=== PATIENT | female | born 1970 | race Caucasian/White ===

== ENCOUNTER 2018-03-09 08:03 | Day surgery (SDC) | payer OTHER, MEDICAID, SELFPAY ==
[2018-03-09] VITALS (8 sets, daily range): BP systolic 103–123; BP diastolic 67–83; PULSE 58–94; RESP 12–20; TEMP 36.1–36.9; O2SAT 95–99; BMI 27.9
--- NOTE | 2018-03-09 | PATH_ITS ---
[facility] Accession Number: [id number] . 01 Material submitted: . UTERUS AND BILATERAL FALLOPIAN TUBES . 02 Diagnosis: Uterus and Bilateral Fallopian Tubes, Hysterectomy and Bilateral Salpingectomy: 1. Focal complex endometrial hyperplasia with atypia. See comment. 2. Adenomyosis. 3. Two fallopian tubes with no evidence of neoplasm. 4. Benign leiomyoma. 5. No evidence of invasive carcinoma. MRV/03/16/2018 . 02 Comment: As part of routine design quality engineer, this case was also reviewed by Dr. Robledo and Dr. Koroma, who agree with the interpretation of complex endometrial hyperplasia with atypia. No invasive carcinoma is identified. All of the visualized endometrium from the morcellated specimen is submitted. . 02 Electronically signed: . Julia Wolf MD, Pathologist NPI- [id number] . 01 Gross description: . Received in formalin, labeled uterus + bilateral fallopian tubes, is a morcellated uterus (81 grams, 10.5 x 9.5 x 4.0 cm in aggregate) and two fimbriated fallopian tubes (tube #1: length-4.2 cm, diameter -0.6 cm; tube #2: length-4.0 cm, diameter-0.5 cm). The ovaries and cervix are absent. The specimen cannot be oriented and the endometrium and myometrium cannot be grossly measured. The parenchyma and serosa are quan and unremarkable. The fallopian tubes have dark maroon smooth shiny serosa and quan unremarkable lumens. Section code: (A1-A4) parenchyma; (A5) fallopian tube #1, traffic representative serial slices; (A6) fimbria #1, bivalved, entirely submitted; (A7) fallopian tube #2, traffic representative serial slices; (A8) fimbria #2, bivalved, entirely submitted. Additional sections of endometrium and myometrium are submitted in cassettes A9-A14. (ERYN:cmc10) (JL:cmc10 911) /MRV . 02 Pathologist provided ICD-10: N85.02 . 02 CPT . 077546 Performed at: 01 [facility] [address] [id number] MD Porter Shepherd MD Phone: [phone] Performed at: [address] [facility] [address] [place], [place] [id number] MD Joao Koroma MD Phone: [phone]
[2018-03-09] MEDS: LACTATED RINGERS 1,000 ML 42 ML IV ×2 (09:06→11:40)
--- NOTE | 2018-03-09 09:43 | PM.PREOP ---
Pre-operative Note Interval Note Pre-op Check: History & Physical Reviewed by Physician
[2018-03-09] MEDS: CEFAZOLIN 2 GM/100 ML FROZ.PIGGY IV (10:05)
--- NOTE | 2018-03-09 10:52 | SUR.OPER ---
Lithotomy on padded OR bed. Chappell Pad Positioner under torso. Head on foam headrest and gel donut, arms padded and tucked at sides. Legs secured in padded yellow fins stirrups.
[2018-03-09] MEDS: BUPIVACAINE 0.5% W/ EPI (PF) 30 ML VIAL INJ (11:18)
[2018-03-09] MEDS: ROPIVACAINE 0.2% PF 2 MG/ML 10ML AMP 20 ML INJ (11:36)
[2018-03-09] MEDS: OXYCODONE/ACETAMINOPHEN 5/325 TABLET 1 TAB PO (13:14)
--- NOTE | 2018-03-09 13:55 | SUR.PHASEII ---
Delay in discharge due to needing to void after which happened she is discharged. Reporting severe pain but also with 0 for FLACC scale. Medicated however after recing a snack.
--- NOTE | 2018-03-09 18:34 | P.OP_ITS ---
Operative Date/Time/Diagnoses Date of procedure: 03/09/18 Time of procedure: 11:30 Pre-op diagnosis: Menorrhagia Post-op diagnosis: same Procedure: Procedures Operation Date: 03/09/18 09:15 Actual Procedures Side Surgeon p Laparoscopic Supracervical Hysterectomy w/Bilat Salpingectomies Evelyn Kennedy MD Laparoscopic supracervical hysterectomy and bilateral salpingectomy Indications: Menorrhagia Surgeon: Evelyn Kennedy Steam Shovel Oiler: Jay Smith Anesthesia Type: General Operative Notes Findings: 8 week size anteverted uterus Tubes status post ligation bilaterally Normal appendix Normal gallbladder and liver Normal ovaries Closure Type: primary Specimen(s): left tube, right tube and uterus Applied: catheter (Removed at the end of the case) Estimated blood loss (mL): 150 Procedure in detail: The patient was taken to the operating room where she was placed in the dorsal supine position. After adequate general endotracheal anesthesia was achieved, she was placed in the dorsal lithotomy position, and prepped and draped in the usual sterile fashion. A timeout was performed. A bivalve speculum was placed into the vagina and the anterior lip of the cervix grasped with a single-tooth tenaculum. The cervical os was sequentially dilated until the ZUMI uterine manipulator could pass easily into the endometrial cavity. The single-tooth tenaculum was removed from the anterior lip of the cervix, and the bivalve speculum was removed from the vagina. Attention was then turned to the abdomen where 6 mL of half percent Marcaine with epinephrine were injected in the umbilical fold. A 5 mm incision was made. The Verhees needle was placed into the peritoneal cavity, and its placement confirmed by aspiration and drop test. The Verhees needle was removed. A 5 mm trocar was placed without difficulty. 2 other incisions were made midway between the pubic symphysis and umbilicus after 5 mL of half percent Marcaine with epinephrine were injected. These were 5 mm incisions. Two 5 mm trochars were placed under direct visualization. The right tube was grasped with an atraumatic grasper. Using the plasma kinetic with settings of 40 W the mesosalpinx was cauterized and cut all the way down to the cornua of the uterus. The cornua of the uterus was then grasped with an atraumatic grasper. The utero-ovarian ligaments were cauterized and cut. The round ligament and broad ligament was cauterized and cut with plasma kinetic. Hemostasis was achieved. The bladder flap was created using the plasma kinetic with cautery and cut skilled nursing across. The uterine arteries on the right side were extensively cauterized with plasma kinetic. All of this was repeated on the left side. The remainder of the bladder flap was created using the plasma kinetic, and the bladder taken down off the lower uterine segment and cervix. Using the Linaloop, the cervix was amputated from the uterus 2 cm above the uterosacral ligaments, after the ZUMI uterine manipulator was removed from the uterus. There was a small amount of bleeding noted from the left edge of the cervix, and this was cauterized for hemostasis. A sponge stick was placed into the vagina. 6 mL of half percent Marcaine with epinephrine were injected above the pubic symphysis. A 12 mm trocar was placed. An Endobag was placed through the suprapubic trocar and the uterus placed into the Endobag. The trocar was removed. The Vince was placed into the endobag. The uterus was hand morcellated in approximately 15 pieces. The Endobag was removed from the peritoneal cavity. The pelvis was copiously irrigated with warm normal saline. No bleeding was noted. 20 cc of 0.2% ropivacaine was placed over the pedicles and cervix. The instruments were removed from the abdomen. The CO2 was allowed to escape. The suprapubic incision was closed on the fascia with 0 Vicryl. All of the incisions were closed with 4-0 undyed Vicryl in a subcuticular fashion. Steri-Strips, 2 x 2 was, and op sites were placed over the incisions. The moistened sponge stick was removed from the vagina. Sponge , lap, and instrument counts were correct x-2. The patient tolerated the procedure well, was taken to PACU in stable condition. Complications: none Post-operative Condition: stable Disposition: PACU Plan for aftercare: Home after recovery
== END 2018-03-09 13:45 | disposition home or self-care (01) ==
PROVIDERS: Family Provider Family Medicine; PCP Family Medicine; Visit Provider Obstetrics & Gynecology
PROC: 0UT94ZL Resection of Uterus, Supracervical, Percutaneous Endoscopic Approach (ICD-10-PCS; CPT 58542; principal; 2018-03-09 09:15)
DX: N85.02 Endometrial intraepithelial neoplasia [EIN] (principal); F17.210 Nicotine dependence, cigarettes, uncomplicated; J45.909 Unspecified asthma, uncomplicated
CPT/HCPCS: 58542; 88307; J0330; J0690; J1100; J1170; J1885; J2405; J2704; J2795; J3010

== ENCOUNTER → 2018-09-03 16:25 | Outpatient (CLI) | payer OTHER, MEDICAID, SELFPAY ==
--- NOTE | 2018-09-04 16:03 | PM.PFT.1 ---
Pulmonary Function Test Referral & Results Date Patient Seen: 09/03/18 Requesting provider: Jacob Hampton Indication: Wheezing Results: The spirometry demonstrates an FVC of 2.98 L which is 78% of predicted. The FEV1 was measured at 2.14 L which is 71% of predicted. The FEV1/FVC ratio was 72 which is 89% of predicted. Following the administration of bronchodilator there was an 80% improvement in FEV1 and 85% improvement in FEF 25-75%. Lung volumes show an SVC of 3.24 L which is 93% of predicted. The diffusing capacity was measured at 23.40 which is 86% of predicted. Interpretation: There is evidence of moderate obstructive lung disease based on reduction FEV1 evidence of significant benefit following bronchodilator based on 18% improvement in FEV1 as well as 85% improvement in FEF 25-75% Lung volumes appear normal as does diffusing capacity This consistent with a diagnosis of asthma
== END ==
PROVIDERS: Family Provider Family Medicine; PCP Family Medicine; Visit Provider Internal Medicine
DX: R06.2 Wheezing (principal)
CPT/HCPCS: 94060; 94726; 94729

== ENCOUNTER → 2019-03-05 08:04 | Outpatient (CLI) | payer OTHER, MEDICAID, SELFPAY ==
--- NOTE | 2019-03-05 | DI.MRI.S_ITS ---
PROCEDURE: MR BRAIN (IAC) WWO CON INDICATIONS: Sensorineural hearing loss, bilateral TECHNIQUE: Noncontrast sagittal T1 spin echo, axial FLAIR, axial gradient echo, axial diffusion and ADC through the brain. Axial thin-slice 3D CISS, coronal TruFISP, axial T1 spin echo with fat saturation through the internal auditory canals. After the administration of contrast, thin slice axial and coronal T1 spin echo with fat saturation through the internal auditory canals, and axial T1 spin echo with fat saturation through the brain. COMPARISON: [facility], MR, BRAIN WITHOUT CONTRAST, 06/07/2015, 13:01. [facility], MR, BRAIN (IAC) W&WO CONTRAST, 06/21/2015, 9:55. FINDINGS: Image quality: Excellent. Cerebellopontine angles: No cerebellopontine angle masses. Inner ear structures appear normally formed. No suspicious enhancement in the internal auditory canal or along the course of the 7th cranial nerve. CSF spaces: Ventricles are normal in size and shape. No extra-axial fluid collections. Basal cisterns are patent. Brain: No intracranial bleeds or mass effects. Villegas-white matter interface is intact. No abnormal intracranial enhancement. Diffusion weighted images demonstrate no acute ischemic insults. Brainstem appears normal. Normal intravascular flow voids are present. Skull and face: Calvarial marrow signal is normal. Orbits appear normal. Sinuses: Sinuses and mastoids are clear. IMPRESSION: No significant abnormality is seen. Specifically, no masses or abnormal enhancement are seen within the cerebellopontine angle cisterns or within the internal auditory canals. Dictated by: Garrick Hoffmann M.D. on 03/05/2019 at 8:43 Approved by: Garrick Hoffmann M.D. on 03/05/2019 at 8:45
== END ==
PROVIDERS: Family Provider Family Medicine; PCP Family Medicine; Visit Provider Otolaryngology
DX: H90.3 Sensorineural hearing loss, bilateral (principal)
CPT/HCPCS: 70553

== ENCOUNTER → 2020-01-21 08:06 | Outpatient (CLI) | payer OTHER, MEDICAID, SELFPAY ==
--- NOTE | 2020-01-21 08:07 | DI.US.S_ITS ---
PROCEDURE: US PELVIC COMPLETE INDICATIONS: PAIN TECHNIQUE: Real-time scanning was performed of the pelvic organs, with image documentation. Additional endovaginal scanning was necessary due to incomplete visualization of the adnexal and endometrial structures by transabdominal scanning. COMPARISON: [facility], [place], PELVIC COMPLETE, 11/10/2017, 16:41. [facility], , PELVIC COMPLETE, 10/10/2017, 12:31. FINDINGS: Transabdominal scanning: Limited scanning through the kidneys shows no hydronephrosis. No pathologic free abdominal or pelvic fluid. Endovaginal scanning: Uterus: Uterus surgically absent. Ovaries: Not seen bilaterally. No cystic or solid mass is seen at either adnexa. IMPRESSION: Prior hysterectomy. Nonvisualization of the ovaries bilaterally, but the adnexal regions show no underlying cystic or solid mass. Dictated by: Vladimir Kelley M.D. on 01/21/2020 at 12:07 Approved by: Vladimir Kelley M.D. on 01/21/2020 at 12:09
== END ==
PROVIDERS: Family Provider Family Medicine; PCP Family Medicine; Referring Provider Obstetrics & Gynecology; Visit Provider Obstetrics & Gynecology
DX: R10.2 Pelvic and perineal pain (principal); G89.29 Other chronic pain; Z90.710 Acquired absence of both cervix and uterus
CPT/HCPCS: 76830; 76856

== ENCOUNTER → 2020-02-24 11:16 | Outpatient (CLI) | payer OTHER, MEDICAID, SELFPAY | PROVIDERS: Family Provider Family Medicine; PCP Family Medicine; Referring Provider Family Medicine; Visit Provider Family Medicine | DX: M47.22 Other spondylosis with radiculopathy, cervical region (principal) | CPT/HCPCS: 95886; 95887; 95913 ==

== ENCOUNTER 2020-06-05 08:30 | Outpatient (RCR) | payer OTHER, MEDICAID, SELFPAY ==
--- NOTE | 2019-06-28 16:30 | ST.OPIE ---
Visit Care Team Role Provider Type Jacob Hampton MD Family Provider Non-Staff Primary Care Provider Specialty: Family Practice Address: [address] , [address], [place], [address] Email: Tj Torres Attending Provider Non-Staff Specialty: Ear, Nose, Throat Address: [address] [place] [address], [address] Email: Speech-Language Pathology Initial Evaluation DIRECTOR BIOLOGY Voice Resonance Evaluation Start: 06/28/19 14:33 Freq: Status: Active Protocol: Document 06/28/19 14:34 JALEESA (Rec: 06/28/19 15:45 JALEESA [id number]) Voice and Resonance Assessment Session Time Visit Start Time 14:30 Visit Stop Time 15:30 Total Visit Minutes 60 Visit Information Visit Number Initial Evaluation Plan of Care Dates 06/28/19 - 09/28/19 Insurance Information [employer] (Pre-auth required after 6 visits) Next Note Type Next Note Type Treatment Note Referral Referring Physician Dr. Torres Reason for Referral Left vocal fold polypoid Setting Setting Outpatient Care Patient History General Information 49-yr-old female with left side polypoid and resolving bleed, per videostroboscopy report. Additional findings include: Smooth right VF edge with normal mucosal wave and VF movement; incomplete glottic closure. Left VF with normal movement, slightly decreased mucosal wave and mild hypertrophy at posterior commisure. The pt reported first experiencing pain with voice and ears after contracted Norovirus in November 2018 lasting ~5 days and including significant violent vomiting. She was seen by Dr. Munroe, ENT, who referred her to Dr. Torres for stroboscopic evaluation of VFs (findings listed above). The pt also has a history of hearing loss. She wears hearing aids, first obtained in fall 2017. 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 She has a history of intermittent smoking of up to 4 cigarettes/day as well as marijuana. Since seeing ENTs, she has mostly stopped smoking and is following a Vocal Hygiene regimen per their recommendations. She denies GERD/LPR and states she was cleared of GERD via endoscopy in Jul 2018. She follows an anti-GERD diet to control. Finally, the pt has a history of mild allergies (house/food molds, 1 tree, and 1 weed), asthma, and COPD. The latter 2 were diagnosed in May 2018. Will get botox injection 08/12/19 for migraines. Hearing Hearing Level Hearing Aids Auditory History Has worn hearing aids for 1 year [place] Lang[place] Language(s) Spoken in the Home Vietnamese Occupational Status Occupation Status Not working Previous Therapy Previous Speech-Language Therapy No Subjective Subjective The pt arrived on time and provided case history supplemental to medical records. - Laryngeal Performance Voice Handicap Index Function Subtotal 11 Mild-Moderate Physical Subtotal 28 Severe Emotional Subtotal 18 Moderate-Severe Total Score 57 Severity Moderate (31-60) VHI Comments (one item in emotional scale not answered, may increase score) CAPE-V Overall Severity 66% Moderate-Severe Roughness 60% Moderate-Severe Breathiness WNL Strain 51% Moderate Pitch 16% (mildly low) Normal Resonance? Yes Additional Features Glottal Wolff Breath Support Breath Support Conversation Comment Breath support for sustaining speech WNL Speaks on Room Air Yes Voice Pitch Range Norms: Women (100-300 Hz) Men (70-250 Hz) Fundamental Frequency Norms: Women (Mean: 225 Hz; Range: 155-334 Hz) Men ( Mean: 128 Hz; Range: 85-196 Hz) Voice Pitch Mildly Low Fundamental Frequency ~150 Hz Paradoxical Vocal Fold Movement No Indications Resonance Other Observations Aggressive Personality Findings Findings Moderate-Severe Impairment Voice/Resonance Assessment Assessment Behavioral and perceptual assessments completed. Aerodynamic and acoustic testing to be completed at next session. Pt's vocal quality is perceived to be moderate-severely impaired and characterized by moderate strain with intermittent roughness, frequently attributable to glottal wolff. Pt's fundamental frequency is mildly below normal. The pt reports frequent vocal abuse ( coughing/throat clearing, imitating noises, talking loudly, grunting, excessive talking, and yelling) and vocal misuse (talking when stressed and tired, using character voices and talking in presence of cold/upper respiratory infection), which likely contribute significantly to vocal impairments. Prognosis Rehabilitation Potential Good - Recommendations Treatment Recommended Yes Treatment Frequency/Duration 1x/wk for 8 wks Placement Recommendation Home Therapy Recommendations Aerodynamic and acoustic evaluation of voice; Education RE vocal hygiene and modification of abusive behaviors; Reduction/Elimination of glottal wolff; Training in breath support for voice and exercises to improve vocal quality. Short Term Goals 1. The pt will participate in further assessment of vocal quality/function to guide POC. 2. The pt will eliminate 3 areas of vocal abuse/misuse of her choosing in 80% of opportunities, as measured by pt report and clinician judgment, to improve VF health , function, and quality of voice. 3. The pt will eliminate glottal wolff in 50% of opportunities to improve vocal quality and minimize laryngeal strain. 4. The pt will perform diaphragmatic breathing in structured tasks with 80% accuracy to improve breath support for voice and reduce laryngeal strain. 5. The pt will perform simple forward focus exercises to reduce laryngeal strain, reduce VF abuse/misuse, and improve vocal quality. [place]ummer Goals 1. The pt will exhibit vocal hygiene WFL, as measured by Vocal Hygiene Patient Questionnaire and clinician judgment, to reduce vocal abuse/misuse and improve VF health and vocal quality. 2. The pt will eliminate glottal wolff in 75% of opportunities to improve vocal quality and minimize laryngeal strain. 3. The pt will perform diaphragmatic breathing independently during vocal exercises and conversation in 80% of opportunities to improve vocal quality and breath support for voice and speech. 4. Using forward focus techniques, the pt will produce vocal quality in conversation to WFL as measured by CAPE-V. 5. The pt will report <Mild vocal impairment as measured by VHI. Patient/Caregiver Education Patient/Family Education Described results of evaluation,Patient Understanding,Patient Needs More Info Vocally Abusive Behavior Behavior Rating Alcohol Consumption Occasionally Arguing (peers/siblings/other) Occasionally Athletic Activity Yelling Occasionally Mouth Breathing Infrequently Caffeine Use Frequently Calling from Distance Infrequently Coughing/Sneezing Loudly Always Crying Infrequently Use of Dairy Products Infrequently Environmental Irritant Exposure Always Use of Inhalants Occasionally Laughing Hard/Abusively Always Singing Abusively Frequently Participation In Plays Never Smoking Infrequently Excessive Talking Occasionally Making Animal /Toy Noises Always Yelling/Screaming Frequently
--- NOTE | 2019-07-05 17:27 | ST.OPTN ---
Visit Care Team Role Provider Type Jacob Hampton MD Family Provider Non-Staff Primary Care Provider Address: [address] , [address], [place], [address] Tj Torres Attending Provider Non-Staff Address: [address], [place], [address] BIOMED TECH Treatment Note BIOMED TECH Treatment Note Start: 06/28/19 14:33 Freq: Status: Active Protocol: Document 07/05/19 17:09 JALEESA (Rec: 07/05/19 17:27 JALEESA [id number]) Speech Pathology Treatment Note Session Time Visit Start Time 14:30 Visit Stop Time 15:15 Total Visit Minutes 45 Visit Information Visit Number 1 Setting Treatment Setting Outpatient Care Visit Type Note Type Treatment Note Next Note Type Next Note Type Treatment Note Subjective Observations/Patient Presentation The pt arrived on time. She reported having researched voice therapy and glottal holman at home and exhibited greater insight to deficits and targets of treatment in conversation throughout the session. Chief Complaint(s) Voice Objective Treatment Activities Completed voice assessment: MPT = 16.35 sec with coaching. Measured vocal stability with average across 3 trials: Fundamental Frequency 151.3 Hz , mildly lower than average; Jitter 0.20%, WNL; and Shimmer 2.28% WNL. The pt reported feeling variation in pitch and loudness and stated that she often has loud outbursts of voice without warning. This was not witnessed in today's session. Pitch Range: 122-443 with clear vocal quality, WNL. The pt was able to go much lower in pitch (as low as 80 Hz) but with significant glottal holman. She continued to exhibit frequent episodes of glottal holman in spontaneous conversation, ~65% of voicing, as perceived by the BIOMED TECH. Initiated training of glottal holman avoidance. The pt was immediately receptive. Provided play-back of her reading of [employer] [place] , which was recorded at start of session. She correctly identified episodes of glottal holman (total = 12) as well as began self-correcting her spontaneous speech. She re- read [place], improving vocal quality to only 4 episodes of glottal holman (WFL). Assessment Patient Response to Treatment Excellent Rehab Potential Good Impairments Identified Vocal Quality,Vocal Hygiene Progress Towards Goals Excellent Progress Assessment of Overall Progress Improving Assessment of Improvement In aerodynamic and acoustical testing, the pt demonstrated vocal stability WNL, although she reported the sensation of instability and lack of control particularly in loudness. Fundamental frequency is mildly below normal for a female, and phonation time is mildly below normal, though with max verbal cues she was able to achieve basal score. The pt made excellent progress today in perceiving and eliminating glottal holman in her voice. She acknowledged the frequency with which she exhibits glottal holman and was responsive to feedback to increase awareness and eliminate when possible. She described strategy to reduce glottal holman as speaking with a cheerful voice and asked excellent questions, including how to avoid glottal holman without sounding inappropriately cheerful in conversations that are serious in nature. She was able to produce clear speech with appropriate tone and prosody when given sentences appropriate to such contexts. Reviewed with Patient Goals,Progress Being Made,Home Exercise Program Patient/Caregiver Understanding Excellent Plan Treatment Emphasis Next Session Breath support for voice and speech. Therapeutic Contents Client Education,Home Exercise Program,Voice Training Provided Patient/Caregiver Instruction Home Exercise Program,Plan of Care,Questions/Concerns Therapy Recommendations Continue with Current Program
--- NOTE | 2019-07-14 18:38 | ST.OPTN ---
Visit Care Team Role Provider Type Jacob Hampton MD Family Provider Non-Staff Primary Care Provider Address: [address], [address], [place], [address] Tj Torres Attending Provider Non-Staff Address: [address], [place], [address] PAROLE OFFICER Treatment Note PAROLE OFFICER Treatment Note Start: 06/28/19 14:33 Freq: Status: Active Protocol: Document 07/14/19 18:27 JALEESA (Rec: 07/14/19 18:38 JALEESA [email or web address]) Speech Pathology Treatment Note Session Time Visit Start Time 13:30 Visit Stop Time 14:15 Total Visit Minutes 45 Visit Information Visit Number 2 Setting Treatment Setting Outpatient Care Visit Type Note Type Treatment Note Next Note Type Next Note Type Treatment Note General Information General Information 49-yr-old female with left side polypoid and resolving bleed, per videostroboscopy report. Additional findings include: Smooth right VF edge with normal mucosal wave and VF movement; incomplete glottic closure. Left VF with normal movement, slightly decreased mucosal wave and mild hypertrophy at posterior commisure. The pt reported first experiencing pain with voice and ears after contracted Norovirus in November 2018 lasting ~5 days and including significant violent vomiting. She was seen by Dr. Munroe, ENT, who referred her to Dr. Torres for stroboscopic evaluation of VFs (findings listed above). The pt also has a history of hearing loss. She wears hearing aids, first obtained in fall 2017. 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 She has a history of intermittent smoking of up to 4 cigarettes/day as well as marijuana. Since seeing ENTs, she has mostly stopped smoking and is following a Vocal Hygiene regimen per their recommendations. She denies GERD/LPR and states she was cleared of GERD via endoscopy in Jul 2018. She follows an anti-GERD diet to control. Finally, the pt has a history of mild allergies (house/food molds, 1 tree, and 1 weed), asthma, and COPD. The latter 2 were diagnosed in May 2018. Will get botox injection 08/12 for migraine. Subjective Observations/Patient Presentation The pt arrived on time. She informed that she has started taking anger management classes as an attempt to find alternative ways to express herself that will be beneficial in protecting her voice, as well in maintaining relationships and personal quality of life. She also reported good understanding and increased awareness of minimizing glottal holman. Chief Complaint(s) Voice Objective Short Term Goals 1. The pt will participate in further assessment of vocal quality/function to guide POC. 2. The pt will eliminate 3 areas of vocal abuse/misuse of her choosing in 80% of opportunities, as measured by pt report and clinician judgment, to improve VF health , function, and quality of voice. 3. The pt will eliminate glottal holman in 50% of opportunities to improve vocal quality and minimize laryngeal strain. 4. The pt will perform diaphragmatic breathing in structured tasks with 80% accuracy to improve breath support for voice and reduce laryngeal strain. 5. The pt will perform simple forward focus exercises to reduce laryngeal strain, reduce VF abuse/misuse, and improve vocal quality. Treatment Activities Continued education of vocal hygiene including alternative behaviors to minimize vocal misuse and abuse. The pt identified situations in which she misuses her voice and was able to offer appropriate alternatives (e.g., breathing out instead of grunting during exercise or when experiencing pain). The pt exhibited minimal glottal holman in spontaneous conversation throughout the session. Skilled feedback and encouragement was provided, including comparisons of voice recordings taken today at at initial evaluation (Jun 28). Upon hearing the difference in her voice, the pt stated, That sounds like two different people! and responded emotionally, verbalizing her disbelief and appreciation at the improved quality of voice she is producing today. She reported being very encouraged . Initiated education of sub- systems of voice and training of breath support as foundational to forward focus resonance, which will be trained at next session to reduce laryngeal tension during phonation and speech. Assessment Patient Response to Treatment Excellent Rehab Potential Good Impairments Identified Vocal Quality,Vocal Hygiene Progress Towards Goals Excellent Progress Assessment of Overall Progress Improving Assessment of Improvement Significant improvement in vocal quality was observed today via the pt's near elimination of vocal holman. The pt was highly encouraged and appreciative. She was participatory and intuitive during discussions of alternative behaviors to reduce vocal misuse/abuse and has taken significant steps toward this by attending anger management courses. She was receptive to initial education RE breath support for speech and voice and use of forward focus resonance to reduce laryngeal tension. This will be continued at next session. Reviewed with Patient Goals,Progress Being Made,Home Exercise Program Patient/Caregiver Understanding Excellent Plan Treatment Emphasis Next Session Breath support for voice and speech; forward focus resonance. Therapeutic Contents Client Education,Home Exercise Program,Voice Training Provided Patient/Caregiver Instruction Home Exercise Program,Plan of Care,Questions/Concerns Therapy Recommendations Continue with Current Program
--- NOTE | 2019-07-28 17:56 | ST.OPTN ---
Visit Care Team Role Provider Type Jacob Hampton MD Family Provider Non-Staff Primary Care Provider Address: [address], [address], [place], [address] Tj Torres Attending Provider Non-Staff Address: [address], [place], [address] PROJECT SAFETY MANAGER Treatment Note PROJECT SAFETY MANAGER Treatment Note Start: 06/28/19 14:33 Freq: Status: Active Protocol: Document 07/27/19 17:43 JALEESA (Rec: 07/28/19 17:46 JALEESA [id number]) Speech Pathology Treatment Note Session Time Visit Start Time 14:30 Visit Stop Time 15:20 Total Visit Minutes 50 Visit Information Visit Number 3 Setting Treatment Setting Outpatient Care Visit Type Note Type Treatment Note Next Note Type Next Note Type Treatment Note General Information General Information 49-yr-old female with left side polypoid and resolving bleed, per videostroboscopy report. Additional findings include: Smooth right VF edge with normal mucosal wave and VF movement; incomplete glottic closure. Left VF with normal movement, slightly decreased mucosal wave and mild hypertrophy at posterior commisure. The pt reported first experiencing pain with voice and ears after contracted Norovirus in November 2018 lasting ~5 days and including significant violent vomiting. She was seen by Dr. Munroe, ENT, who referred her to Dr. Torres for stroboscopic evaluation of VFs (findings listed above). The pt also has a history of hearing loss. She wears hearing aids, first obtained in fall 2017. 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 She has a history of intermittent smoking of up to 4 cigarettes/day as well as marijuana. Since seeing ENTs, she has mostly stopped smoking and is following a Vocal Hygiene regimen per their recommendations. She denies GERD/LPR and states she was cleared of GERD via endoscopy in Jul 2018. She follows an anti-GERD diet to control. Finally, the pt has a history of mild allergies (house/food molds, 1 tree, and 1 weed), asthma, and COPD. The latter 2 were diagnosed in May 2018. Will get botox injection 08/12 for migraine. Subjective Observations/Patient Presentation The pt arrived on time. She reported increased use of glottal holman and vocal outbursts secondary to increased depression from this time of year and from PTSD experiences. She stated she has a difficulty time being upbeat at Hung time and she recognized that this was reflected in her voice. She said that she has modified her voice when feeling pain and when exercising, however, as discussed at last session. Chief Complaint(s) Voice Objective Short Term Goals 1. The pt will eliminate 3 areas of vocal abuse/misuse of her choosing in 80% of opportunities, as measured by pt report and clinician judgment, to improve VF health , function, and quality of voice. 2. The pt will eliminate glottal holman in 50% of opportunities to improve vocal quality and minimize laryngeal strain. 3. The pt will perform diaphragmatic breathing in structured tasks with 80% accuracy to improve breath support for voice and reduce laryngeal strain. 4. The pt will perform simple forward focus exercises to reduce laryngeal strain, reduce VF abuse/misuse, and improve vocal quality. Application Operations Engineer Goals 1. The pt will exhibit vocal hygiene WFL, as measured by Vocal Hygiene Patient Questionnaire and clinician judgment, to reduce vocal abuse/misuse and improve VF health and vocal quality. 2. The pt will eliminate glottal holman in 75% of opportunities to improve vocal quality and minimize laryngeal strain. 3. The pt will perform diaphragmatic breathing independently during vocal exercises and conversation in 80% of opportunities to improve vocal quality and breath support for voice and speech. 4. Using forward focus techniques, the pt will produce vocal quality in conversation to WFL as measured by CAPE-V. 5. The pt will report <Mild vocal impairment as measured by VHI. Treatment Activities Continued education of vocal hygiene including alternative behaviors to minimize vocal misuse and abuse. Pt verbalized understanding and reported behaviors she has modified since last visit, as well as strategies she can employ during this difficult time of year. Initiated training in forward focus resonance to reduce laryngeal tension during phonation and heal vocal pathology. The pt returned demonstration with productions of /m/ at various pitches and productions of m-initial CV syllables, sensing vibration at lips and bridge of nose. Vocal quality was intermittently strained and relaxed as the pt practiced the task. Given productions of the PROJECT SAFETY MANAGER's voice, the pt was able to discriminate between strained and relaxed voice and improved in her ability to discern the same in her own voice and produced increasingly relaxed voicing. Assessment Patient Response to Treatment Excellent Rehab Potential Good Impairments Identified Vocal Quality,Vocal Hygiene Progress Towards Goals Excellent Progress Assessment of Overall Progress Improving Assessment of Improvement The pt exhibited significant increase of glottal holman during today's session as compared to last session. The pt demonstrated awareness of this and occasionally modified voice to eliminate glottal holman . She was receptive to feedback RE managing her voice when she is feeling increased depression and strategies to reduce vocal outbursts that may be abusive to the voice. She was also responsive to initial training of forward focus resonance, able to discern between target and non -target productions from the PROJECT SAFETY MANAGER and herself. She was stimulable to the technique, which needs reinforcement. Reviewed with Patient Goals,Progress Being Made,Home Exercise Program Patient/Caregiver Understanding Excellent Plan Treatment Emphasis Next Session Breath support for voice and speech; forward focus resonance. Therapeutic Contents Client Education,Home Exercise Program,Voice Training Provided Patient/Caregiver Instruction Home Exercise Program,Plan of Care,Questions/Concerns Therapy Recommendations Continue with Current Program
--- NOTE | 2019-08-02 17:05 | ST.OPTN ---
Visit Care Team Role Provider Type Jacob Hampton MD Family Provider Non-Staff Primary Care Provider Address: [address], [place], [address] Tj Torres Attending Provider Non-Staff Address: [address], [place], [address] BOILER CLEANER Treatment Note BOILER CLEANER Treatment Note Start: 06/28/19 14:33 Freq: Status: Active Protocol: Document 08/02/19 15:25 JALEESA (Rec: 08/02/19 15:26 JALEESA [email or web address]) Speech Pathology Treatment Note Session Time Visit Start Time 14:30 Visit Stop Time 15:20 Total Visit Minutes 50 Visit Information Visit Number 3 Plan of Care Dates 06/28/19 - 09/28/19 Insurance Information [employer] (Pre-auth required after 6 visits) Setting Treatment Setting Outpatient Care Visit Type Note Type Treatment Note Next Note Type Next Note Type Treatment Note General Information General Information 49-yr-old female with left side polypoid and resolving bleed, per videostroboscopy report. Additional findings include: Smooth right VF edge with normal mucosal wave and VF movement; incomplete glottic closure. Left VF with normal movement, slightly decreased mucosal wave and mild hypertrophy at posterior commisure. The pt reported first experiencing pain with voice and ears after contracted Norovirus in November 2018 lasting ~5 days and including significant violent vomiting. She was seen by Dr. Munroe, ENT, who referred her to Dr. Torres for stroboscopic evaluation of VFs (findings listed above). The pt also has a history of hearing loss. She wears hearing aids, first obtained in fall 2017. 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 She has a history of intermittent smoking of up to 4 cigarettes/day as well as marijuana. Since seeing ENTs, she has mostly stopped smoking and is following a Vocal Hygiene regimen per their recommendations. She denies GERD/LPR and states she was cleared of GERD via endoscopy in Jul 2018. She follows an anti-GERD diet to control. Finally, the pt has a history of mild allergies (house/food molds, 1 tree, and 1 weed), asthma, and COPD. The latter 2 were diagnosed in May 2018. Will get botox injection 08/12 for migraine. Subjective Observations/Patient Presentation The pt arrived on time. She reported improving ability to monitor and control her voice and good compliance with vocal hygiene recommendations. The pt expressed concern that in doing exercises, she feels that she is losing her own, natural voice, particularly fundamental frequency. She feels in order to avoid glottal holman and back focused voicing, she is speaking at a pitch higher that is natural for her. She is concerned that this will take away from her personality. Chief Complaint(s) Voice Patient Knowledge/Awareness of BOILER CLEANER Role Excellent in Treatment Patient/Caregiver Compliance with Home Good Exercise Program Objective Short Term Goals 1. The pt will eliminate 3 areas of vocal abuse/misuse of her choosing in 80% of opportunities, as measured by pt report and clinician judgment, to improve VF health , function, and quality of voice. 2. The pt will eliminate glottal holman in 50% of opportunities to improve vocal quality and minimize laryngeal strain. 3. The pt will perform diaphragmatic breathing in structured tasks with 80% accuracy to improve breath support for voice and reduce laryngeal strain. 4. The pt will perform simple forward focus exercises to reduce laryngeal strain, reduce VF abuse/misuse, and improve vocal quality. Senior Care Goals 1. The pt will exhibit vocal hygiene WFL, as measured by Vocal Hygiene Patient Questionnaire and clinician judgment, to reduce vocal abuse/misuse and improve VF health and vocal quality. 2. The pt will eliminate glottal holman in 75% of opportunities to improve vocal quality and minimize laryngeal strain. 3. The pt will perform diaphragmatic breathing independently during vocal exercises and conversation in 80% of opportunities to improve vocal quality and breath support for voice and speech. 4. Using forward focus techniques, the pt will produce vocal quality in conversation to WFL as measured by CAPE-V. 5. The pt will report <Mild vocal impairment as measured by VHI. Treatment Activities Pt exhibited only occasional glottal holman throughout the session, typically at ends of sentences. She self-monitored and corrected independently. Continued training in forward focus resonance. Pt completed tasks using /m/ and m-initial CV syllables achieving target resonance in >90% of trials. In conversation, the pt produced speech at fundamental frequency range of 123-207 Hz , which is at or mildly below normal levels (155-334 Hz range; 225 Hz normal fundamental frequency). Trained pt in forward focus at her typical fundamental frequency by humming verbal intonations using 4 phrases she commonly uses in her functional conversations. The pt initially exhibited glottal stops where words would occur if she were speaking. Trained pt to perform intonation task with continuous phonation, which she was able to accomplish. In most trials, the pt was able to achieve target resonance. No episodes of glottal holman were present during this task. Assessment Patient Response to Treatment Excellent Rehab Potential Good Impairments Identified Vocal Quality,Vocal Hygiene Progress Towards Goals Excellent Progress Assessment of Overall Progress Improving Assessment of Improvement Significantly improved vocal quality with minimal presence of glottal holman was perceived in today's session as compared with last week. The pt appeared and resported being much happier, feeling less depressed this week, and that was reflected in her vocal quality. She performed forward focus resonance (ffr) tasks well using /m/ in isolation and in CV syllables. She was responsive to training in ffr tasks using conversational pitch and intonation and transitioned to speaking same phrases with good quality of voice. Will progress to phrases/sentences with /m/- heavy content to continue transitioning to ffr speech. Reviewed with Patient Goals,Progress Being Made,Home Exercise Program Patient/Caregiver Understanding Excellent Plan Treatment Emphasis Next Session M words, phrases, sentences Therapeutic Contents Client Education,Home Exercise Program,Voice Training Provided Patient/Caregiver Instruction Home Exercise Program,Plan of Care,Questions/Concerns Therapy Recommendations Continue with Current Program
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
--- NOTE | 2019-11-02 17:00 | ST.OPTN ---
Visit Care Team Role Provider Type Jacob Hampton MD Family Provider Non-Staff Primary Care Provider Address: [address] , [address], [place], [address] Tj Torres Attending Provider Non-Staff Address: [address], [place], [address] COIN MACHINE OPERATOR Treatment Note COIN MACHINE OPERATOR Treatment Note Start: 06/28/19 14:33 Freq: Status: Active Protocol: Document 11/02/19 16:51 JALEESA (Rec: 11/02/19 16:59 JALEESA [email or web address]) Speech Pathology Treatment Note Session Time Visit Start Time 13:30 Visit Stop Time 14:15 Total Visit Minutes 45 Visit Information Visit Number 2 Plan of Care Dates 10/26/19 - 12/26/19 Insurance Information [employer] (Pre-auth required after 6 visits) Setting Treatment Setting Outpatient Care Visit Type Note Type Treatment Note Next Note Type Next Note Type Treatment Note General Information General Information 49-yr-old female with left side polypoid and resolving bleed, per videostroboscopy report. Additional findings include: Smooth right VF edge with normal mucosal wave and VF movement; incomplete glottic closure. Left VF with normal movement, slightly decreased mucosal wave and mild hypertrophy at posterior commisure. The pt reported first experiencing pain with voice and ears after contracted Norovirus in November 2018 lasting ~5 days and including significant violent vomiting. She was seen by Dr. Munroe, ENT, who referred her to Dr. Torres for stroboscopic evaluation of VFs (findings listed above). The pt also has a history of hearing loss. She wears hearing aids, first obtained in fall 2017. 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 She has a history of intermittent smoking of up to 4 cigarettes/day as well as marijuana. Since seeing ENTs, she has mostly stopped smoking and is following a Vocal Hygiene regimen per their recommendations. She denies GERD/LPR and states she was cleared of GERD via endoscopy in Jul 2018. She follows an anti-GERD diet to control. Finally, the pt has a history of mild allergies (house/food molds, 1 tree, and 1 weed), asthma, and COPD. The latter 2 were diagnosed in May 2018. Will get botox injection 08/12 for migraine. Subjective Observations/Patient Presentation Pt arrived on time. Requested assistance in finding a psychotherapist. Informed that in 2018 she had a psychological evaluation with findings of moderate dysthymia , somatization disorder, personalisty disorder with histronic freatuyres, and R/O canibis use disorder NOS. She provided name of Dr. Janes Wong as provider who evaluated her. Will attempt to obtain evaluation report. Pt completed Information Release form. Waiting for MD orders for cognitive evaluation and tx. After session, pt contacted PCP who reported not receiving request. Request was faxed again. Chief Complaint(s) Cognitive,Voice Additional Areas of Concern Auditory memory, word recall, expressive language Rehab Expectation/Goals: Patient Goals Stabilize voice; Improve cognitive & expressive communication skills Patient Knowledge/Awareness of COIN MACHINE OPERATOR Role Excellent in Treatment Patient/Caregiver Compliance with Home Excellent Exercise Program Objective Short Term Goals All previous goals met. New goals: 1. The pt will participate in evaluation of cognitive communication skills to identify areas of strength and impairment and to guide POC. Goals to be determined pending results. 2. The pt will employ strategies to reduce laryngeal strain in structured reading/ speaking tasks of moderate length in 80% of opportunities to maintain good vocal quality and minimize vocal abuse. 3. The pt will perform breathing and sustained phonation exercises with 80% accuracy to improve breath support for voice and speech. 4. Given emotionally laden reading passages and/or conversation topics, the pt will exhibit appropriate emotions via words and suprasegmental features while maintaining good vocal quality across duration of 3-6 minutes of speech to improve vocal control and reduce abusive vocal behaviors. Crystal Slicer Goals All previous goals met. New goals: 1. Given lengthy reading passages and in spontaneous speech, the pt will exhibit adequate breath support to support optimal vocal quality and intelligibility in 80% of opportunities. 2. Given emotionally laden topics/scenarios, the pt will maintain optimal vocal quality in 80% of opportunities to reduce/eliminate vocal abuse. 3. The pt will feel confident and comfortable with her vocal quality as related to her personality, as measured by pt and VHI reports. Treatment Activities Education provided to pt with recommendation for working with therapist trained in Cognitive Behavioral Therapy to target management of emotional triggers that result in vocal abuse. Pt in agreement. Provided a list of local providers and their contact information. Pt appreciative. At start of session, pt was observed with high frequency of vocal holman. She minimized this over course of sessio with mod verbal cues fading to independent monitoring and correction. Assessment Patient Response to Treatment Excellent Rehab Potential Good Impairments Identified Vocal Quality,Vocal Hygiene Progress Towards Goals Excellent Progress Assessment of Overall Progress Improving Assessment of Improvement Cassandra continues to be very motivated to improve vocal quality as well as overall health and open to working with mental health professional to establish strategies to avoid emotional triggers that result in vocal abuse. She exhibited increased use of vocal holman when discussing frustration and was responsive to verbal prompts, which resulted in independent monitoring and near absence of glottal holman by end of session. Reviewed with Patient Goals,Progress Being Made,Home Exercise Program Patient/Caregiver Understanding Excellent Plan Amount of Therapy Recommended 3-4 Months Frequency of Treatment Once a Week Length of Session 45 Minutes Therapeutic Contents Client Education,Cognitive- Linguistic Training,Expressive Language Training,Home Exercise Program,Voice Training Provided Patient/Caregiver Instruction Home Exercise Program,Plan of Care,Questions/Concerns Comment Skilled intervention targeting voice and cognitive communication skills
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
== END 2020-06-09 15:18 ==
LOC: SP 08:30
PROVIDERS: Family Provider Family Medicine; PCP Family Medicine; Visit Provider Specialist
DX: J38.1 Polyp of vocal cord and larynx (principal)
CPT/HCPCS: 92507; 92523; 92524; 96125

== ENCOUNTER → 2020-07-11 13:15 | Outpatient (CLI) | payer OTHER, MEDICAID, SELFPAY ==
--- NOTE | 2020-07-11 13:16 | DI.RAD.S_ITS ---
PROCEDURE: XR FOOT LT MIN 3V INDICATIONS: foot pain TECHNIQUE: 3 views of the foot were acquired. COMPARISON: [facility], CR, XR FOOT RT MIN 3V, 07/11/2020, 12:13. 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 This is slightly less prominent than that on the right.. No suspicious bony lesions. Soft tissues: No tibiotalar joint effusion. Achilles tendon appears normal. IMPRESSION: Podiatry related findings as discussed, no acute trauma found. Dictated by: Vladimir Kelley M.D. on 07/11/2020 at 14:05 Approved by: Vladimir Kelley M.D. on 07/11/2020 at 14:06
--- NOTE | 2020-07-11 13:16 | DI.RAD.S_ITS ---
PROCEDURE: XR FOOT RT MIN 3V INDICATIONS: foot pain TECHNIQUE: 3 views of the foot were acquired. COMPARISON: None. FINDINGS: Bones: No fractures or dislocations but note is made of a moderate degree of 1st MTP joint osteoarthritis with bunion formation at the medial 1st metatarsal head. No suspicious bony lesions. Soft tissues: No tibiotalar joint effusion. Achilles tendon appears normal. IMPRESSION: No trauma found. First MTP joint osteoarthritic change, with medial bunion formation at the 1st metatarsal head. Dictated by: Vladimir Kelley M.D. on 07/11/2020 at 14:04 Approved by: Vladimir Kelley M.D. on 07/11/2020 at 14:05
== END ==
PROVIDERS: Family Provider Family Medicine; PCP Family Medicine; Referring Provider Physical Medicine & Rehabilitation; Visit Provider Physical Medicine & Rehabilitation
DX: M79.672 Pain in left foot (principal); M79.671 Pain in right foot
CPT/HCPCS: 73630

== ENCOUNTER → 2021-02-09 09:28 | Outpatient (CLI) | payer OTHER, MEDICAID, SELFPAY ==
--- NOTE | 2021-02-09 09:29 | DI.RAD.S_ITS ---
PROCEDURE: XR THORACIC SPINE 3V INDICATIONS: RIB PAIN TECHNIQUE: 3 views of the thoracic spine were acquired. COMPARISON: [facility], , THORACIC SPINE 2 VIEWS, 10/01/2016, 14:15. FINDINGS: Bones: No fractures or dislocations. No suspicious bony lesions. 12 pairs of ribs are noted, and appear intact where visualized. Mild disc space narrowing and small anterior osteophytes noted in the midthoracic spine. Moderate disc space narrowing and anterior osteophytes noted in the lower cervical spine as well. Soft tissues: No paravertebral stripe thickening. IMPRESSION: Stable [id number] midthoracic degenerative disc disease without fracture or malalignment. Dictated by: Doyle Adams M.D. on 02/09/2021 at 12:04 Approved by: Doyle Adams M.D. on 02/09/2021 at 12:07
--- NOTE | 2021-02-09 09:29 | DI.RAD.S_ITS ---
PROCEDURE: XR LUMBAR SPINE MIN 4V INDICATIONS: low back pain TECHNIQUE: 5 views of the lumbar spine were acquired, including bilateral oblique views. COMPARISON: [facility], , L-SPINE WITHOUT CONTRAST, 10/10/2015, 14:02. FINDINGS: Bones: Disc space narrowing and hypertrophic facet joints in the lower lumbar spine is associated with 1.2 cm anterior subluxation of L4 over L5. Soft tissues: Overlying bowel gas pattern is normal. No suspicious soft tissue calcifications. Oblique images: No pars defects. IMPRESSION: Degenerative grade 2 L4-5 anterior spondylolisthesis has increased from the prior Dictated by: Doyle Adams M.D. on 02/09/2021 at 12:07 Approved by: Doyle Adams M.D. on 02/09/2021 at 12:10
== END ==
PROVIDERS: PCP Family Medicine; Referring Provider Physical Medicine & Rehabilitation; Visit Provider Physical Medicine & Rehabilitation
DX: M51.04 Intervertebral disc disorders with myelopathy, thoracic region (principal); M51.34 Other intervertebral disc degeneration, thoracic region; M43.16 Spondylolisthesis, lumbar region; M47.817 Spondylosis without myelopathy or radiculopathy, lumbosacral region
CPT/HCPCS: 72072; 72110

== ENCOUNTER 2021-02-16 08:15 | Outpatient (RCR) | payer OTHER, MEDICAID, SELFPAY ==
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
--- NOTE | 2020-10-16 15:33 | PT.OPPOC ---
Physical, Occupational & Speech Therapy At [facility] Current Diagnoses Hallux valgus (acquired), right foot (10/16/20) Hallux valgus (acquired), left foot (10/16/20) Other acquired deformities of right foot (10/16/20) Metatarsalgia, right foot (10/16/20) Visit Care Team Role Provider Type Jacob Hampton MD Primary Care Provider Non-Staff Specialty: [facility] Address: [address] [place] [address], [address], [place], [address] Email: Choco Kaur DPM Attending Provider Non-Staff Referring Provider Specialty: Podiatry Address: [address] [place] [address], [phone] Email: Plan Of Care PT-OP-T Assessment and Plan Start: 10/16/20 08:12 Freq: Status: Active Protocol: Document 10/16/20 08:15 AMB (Rec: 10/16/20 14:16 AMB [email or web address]) Physical Therapy Assessment Rehab Potential Rehabilitation Potential Good Evaluation Complexity Number of Personal Factors/Comorbidities 3 or More Number of Body Systems Impaired 4 or More Clinical Presentation at Evaluation Evolving Impairments Impairments Activity Tolerance,Functional Mobility,Pain,Strength Goals Four Impairment Range of motion Short Term Goal (STG) Cassandra will improve her ankle dorsiflexion to 10 degrees bilaterally. STG Duration 4 weeks Three Impairment Strength Short Term Goal (STG) Cassandra will perform 5 double leg heel lifts without an increase in baseline pain. STG Duration 4 weeks Two Impairment HEP Senior Care Goal (LTG) Cassandra will be independent and consistent with a HEP for her feet that takes into account her other comorbidities. LTG Duration 8 weeks One Impairment Activity tolerance Short Term Goal (STG) Cassandra will walk over smooth surfaces for 6 minutes with 5/ 10 pain or less. STG Duration 4 weeks Cargo Service Supervisor Goal (LTG) Cassandra will walk over uneven terrain for 10 minutes without an increase in her baseline pain. LTG Duration 8 weeks Assessment Summary Assessment Cassandra attends physical therapy with chronic R>L foot pain in the context of chronic back, neck pain with recent bilateral carpal tunnel releases. She has been doing stretches and wearing inserts provided by her supervisor tellers, but continues to have high level of pains that limit her ability to walk for any sort of distance. She will benefit from physical therapy to improve her gait mechanics, fine tune her exercises and manual work to improve her overall activity tolerance. Physical Therapy Plan Frequency and Duration Frequency of Treatment 2x/Week Duration of Treatment 6 weeks Plan of Care Start Date 10/16/20 Plan of Care End Date 11/27/20 Therapeutic Interventions Therapeutic Interventions Gait Training,Home Exercise Program,Joint Mobilizations, Manual Therapy,Neuromuscular Re-education,Self-Care/Home Management,Soft Tissue Mobilization,Therapeutic Activities,Therapeutic Exercises Modalities Cold Pack/Ice Massage,Hot Packs,Ultrasound Next Visit Focus/Plan Next Note Type Treatment Note Next Visit Plan Review modifications of exercises given by supervisor tellers, given pt's recent carpal tunnel and back pain. Instruct in self massage with instrument assistance. Plan of Care Dates Plan of Care Start Date 10/16/20 Plan of Care End Date 11/27/20 Electronically Signed by: Tiara Kumar, PT 10/16/20 [id number] Please Sign and Return: I have reviewed this Plan of Care and certify that the skilled therapy services above are required to meet the patient?s needs. Physician Signature Date Printed Name and Credentials Clinical Instructor Signature Printed Name and Credentials
--- NOTE | 2020-10-20 08:17 | PT.OTN ---
Current Diagnoses Hallux valgus (acquired), right foot (10/20/20) Hallux valgus (acquired), left foot (10/20/20) Other acquired deformities of right foot (10/20/20) Metatarsalgia, right foot (10/20/20) Physical Therapy Treatment Note PT-OP-A Visit Information Start: 10/16/20 08:12 Freq: Status: Active Protocol: Document 10/20/20 07:32 SP (Rec: 10/20/20 11:45 SP [id number]) Out-Patient Physical Therapy Visit Information Visit Information Visit Type Treatment Note Visit Note 10/03 Visit Start Time 07:32 Visit Stop Time 08:17 Total Visit Minutes 45 Visit Number 2 Number of TURPENTINE FARMER Visits 1 PT-OP-B Current Condition Start: 10/16/20 08:12 Freq: Status: Active Protocol: Document 10/16/20 08:15 AMB (Rec: 10/16/20 09:04 AMB [id number]) Current Condition History of Current Condition Onset Date Chronic Current Complaints R>L toe/foot History of Current Condition Cassandra reports great toe and second toe numbness on the right reports it is constant, not dependent on activity . No numbness in left foot. Pain is in both feet, worse on the right, started at least 30 years ago, although pt states they have always been painful. Currently wearing modified green superfeet from journeyman power plant operator. Standing, transfers, walking all increase the pain. She also reports balance issues, but denies any recent falls. Recent carpal tunnel releases bilateral. Denies falls in the last 6 months, but does have frequent near falls, reports recent L leg giving way at times- back issues. Prior Treatments and Tests cervical and lumbar mild stenosis, minimal grade 1 anterolisthesis L4-5, VNG waiting on results. 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 and bunion at 1st met head R>L Treatment Goals Patient/Caregiver Goals Previously walking on treadmill for 5 miles Prior Functional Status Baseline Function- ADL's Modified Independent Baseline Function- Mobility Modified Independent Current Functional Impairments (Reported) Functional Limitations- ADL's Reports more difficulty with walking, although did not provide firm timeline on when exactly walking became more difficult Personal Factors Other Personal Factors That May Effect Migraines, fibromyalgia, Therapy/Recovery depression PT-OP-C Subjective Start: 10/16/20 08:12 Freq: Status: Active Protocol: Document 10/20/20 07:32 SP (Rec: 10/20/20 11:45 SP [id number]) OP-PT Subjective Patient Comments Patient Comments Pt stated is compliant with journeyman power plant operator HEP: gastroc/ soleus stretch only at wall. Pt stated has pain more R>L ball of feet. Pt stated had some testing and unsure if we received feedback and will follow up with more physicians after next tx and will give us feedback and copy for assist with PT care. PT-OP-G Mobility & Gait Start: 10/16/20 08:12 Freq: Status: Active Protocol: Document 10/16/20 08:15 AMB (Rec: 10/16/20 14:12 AMB [email or web address]) OP Gait Assessment Comments Gait Comments Pt able to walk short distances over smooth terrain with shoes and superfeet without obviously visible antalgic gait PT-OP-J Posture/Palpation/Skin Start: 10/16/20 08:12 Freq: Status: Active Protocol: Document 10/16/20 08:15 AMB (Rec: 10/16/20 15:32 AMB [id number]) Palpation Assessment Location One Palpation Location R foot Palpation Details Tenderness at achilles tendon, plantar fascia, metatarsals PT-OP-K Range of Motion Start: 10/16/20 08:12 Freq: Status: Active Protocol: Document 10/16/20 08:15 AMB (Rec: 10/16/20 14:12 AMB [email or web address]) Ankle and Foot Goniometric Range of Motion Ankle and Foot Left Passive Dorsiflexion with Knee Extended 5 Right Passive Dorsiflexion with Knee Extended 0 PT-OP-M Strength Start: 10/16/20 08:12 Freq: Status: Active Protocol: Document 10/16/20 08:15 AMB (Rec: 10/16/20 14:12 AMB [email or web address]) Ankle/Foot Strength Ankle and Foot Manual Muscle Testing Right Dorsiflexion (L4) 4 Good Plantarflexion (S1) 4- Good- Inversion 4 Good Eversion (S1) 4 Good Left Dorsiflexion (L4) 4+ Good+ Plantarflexion (S1) 4 Good Inversion 4 Good Eversion (S1) 4 Good Toe Strength Toe Manual Muscle Testing Left Great Toe Flexion 4+ Good+ Extension 4+ Good+ Right Great Toe Flexion 4+ Good+ Extension 4+ Good+ PT-OP-Q Treatments Start: 10/16/20 08:12 Freq: Status: Active Protocol: Document 10/20/20 07:32 SP (Rec: 10/20/20 11:45 SP [id number]) Therapeutic Exercises Sitting Exercises plantar fascia STMs Sitting Exercise Name sustained press and roll f/b/ side Equipment Used golf ball>marble Reps/Minutes reps to tolerance Comments distal>proximal with good feedback results calf roll Sitting Exercise Name or long sitting ( can DF ball foot on 1/2 foam roll) Side bilateral Equipment Used rolling pin Reps/Minutes multiple reps tolerance Comments pressure and reps to tolerance - good feedback results Standing Exercises gastroc/soleus stretch at wall Standing Exercise Name review journeyman power plant operator HEP Side bilateral Reps/Minutes 30 x2 each Comments good form Manual Therapy Treatment Soft Tissue Mobilization manual and self STMs B feet Body Location plantar fascia distal and proximal, achilles> muscle gastroc/soleus Mobilization Type Cross-Friction,Myofascial Release Intensity/Depth Moderate Body Position Sitting Comments Long sitting manual>self using rolling pin/golf ball/marble and MWM ankle DF/ PF calf over racquetball. Joint Mobilizations 1-5 MTP/IP/DIP Joint Bilateral Direction AP, PA, rotation CW/ CCW Grade I Body Position Supine Comments gentle ROM w/ instruction on self application with her good carryover demonstration Self-Care/Home Management Treatment Education Patient Education Home Exercise Program,Joint Protection,Pain Management Other Education Extra time spent in self STMs with instrument assist to allow B wrist not over use due to carpal tunnel surgeries in not far distant. PT-OP-T Assessment and Plan Start: 10/16/20 08:12 Freq: Status: Active Protocol: Document 10/20/20 07:32 SP (Rec: 10/20/20 11:45 SP [id number]) Physical Therapy Assessment Goals Four Impairment Range of motion Short Term Goal (STG) Cassandra will improve her ankle dorsiflexion to 10 degrees bilaterally. STG Duration 4 weeks Three Impairment Strength Short Term Goal (STG) Cassandra will perform 5 double leg heel lifts without an increase in baseline pain. STG Duration 4 weeks Two Impairment HEP Art History Instructor Goal (LTG) Cassandra will be independent and consistent with a HEP for her feet that takes into account her other comorbidities. LTG Duration 8 weeks One Impairment Activity tolerance Short Term Goal (STG) Cassandra will walk over smooth surfaces for 6 minutes with 5/ 10 pain or less. STG Duration 4 weeks Fdc Goal (LTG) Cassandra will walk over uneven terrain for 10 minutes without an increase in her baseline pain. LTG Duration 8 weeks Assessment Summary Assessment Pt responded well to tx. pt stated improved circulation feeling in her feet post STMs, stretching and nerve glide. Wow I am going to continue all of these good new ways to loosed up the ball feeling under my foot and tight calves . Physical Therapy Plan Frequency and Duration Frequency of Treatment 2x/Week Duration of Treatment 6 weeks Plan of Care Start Date 10/16/20 Plan of Care End Date 11/27/20 Therapeutic Interventions Therapeutic Interventions Gait Training,Home Exercise Program,Joint Mobilizations, Manual Therapy,Neuromuscular Re-education,Self-Care/Home Management,Soft Tissue Mobilization,Therapeutic Activities,Therapeutic Exercises Modalities Cold Pack/Ice Massage,Hot Packs,Ultrasound Next Visit Focus/Plan Next Note Type Treatment Note Next Visit Plan Assess response to HEP calf stretching, initiated manual and instrument self STMs calves and plantar fascia. Next tx: added arch lift if tolerated seated and if standing if tolerated and possible ankle strengthening TB. Assess if need padding under ball of foot R>L, if received result testing per patient request. Would she benefit from use of [place] sock in evening/ sleeping? Continue per PT POC: Review modifications of exercises given by journeyman power plant operator, given pt' s recent carpal tunnel and back pain. Instruct in self massage with instrument assistance.
--- NOTE | 2020-10-23 12:59 | PT.OTN ---
Current Diagnoses Hallux valgus (acquired), right foot (10/23/20) Hallux valgus (acquired), left foot (10/23/20) Other acquired deformities of right foot (10/23/20) Metatarsalgia, right foot (10/23/20) Physical Therapy Treatment Note PT-OP-A Visit Information Start: 10/16/20 08:12 Freq: Status: Active Protocol: Document 10/23/20 07:30 AMB (Rec: 10/23/20 08:18 AMB [id number]) Out-Patient Physical Therapy Visit Information Visit Information Visit Type Treatment Note Visit Start Time 07:30 Visit Stop Time 08:15 Total Visit Minutes 45 Visit Number 3 PT-OP-B Current Condition Start: 10/16/20 08:12 Freq: Status: Active Protocol: Document 10/16/20 08:15 AMB (Rec: 10/16/20 09:04 AMB [id number]) Current Condition History of Current Condition Onset Date Chronic Current Complaints R>L toe/foot History of Current Condition Cassandra reports great toe and second toe numbness on the right reports it is constant, not dependent on activity . No numbness in left foot. Pain is in both feet, worse on the right, started at least 30 years ago, although pt states they have always been painful. Currently wearing modified green superfeet from controls engineer. Standing, transfers, walking all increase the pain. She also reports balance issues, but denies any recent falls. Recent carpal tunnel releases bilateral. Denies falls in the last 6 months, but does have frequent near falls, reports recent L leg giving way at times- back issues. Prior Treatments and Tests cervical and lumbar mild stenosis, minimal grade 1 anterolisthesis L4-5, VNG waiting on results. 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 and bunion at 1st met head R>L Treatment Goals Patient/Caregiver Goals Previously walking on treadmill for 5 miles Prior Functional Status Baseline Function- ADL's Modified Independent Baseline Function- Mobility Modified Independent Current Functional Impairments (Reported) Functional Limitations- ADL's Reports more difficulty with walking, although did not provide firm timeline on when exactly walking became more difficult Personal Factors Other Personal Factors That May Effect Migraines, fibromyalgia, Therapy/Recovery depression PT-OP-C Subjective Start: 10/16/20 08:12 Freq: Status: Active Protocol: Document 10/23/20 07:30 AMB (Rec: 10/23/20 08:18 AMB [id number]) OP-PT Subjective Patient Comments Patient Comments Pt has been working on the right foot and may have overdone it yesterday, got to the point PT-OP-G Mobility & Gait Start: 10/16/20 08:12 Freq: Status: Active Protocol: Document 10/16/20 08:15 AMB (Rec: 10/16/20 14:12 AMB [email or web address]) OP Gait Assessment Comments Gait Comments Pt able to walk short distances over smooth terrain with shoes and superfeet without obviously visible antalgic gait PT-OP-J Posture/Palpation/Skin Start: 10/16/20 08:12 Freq: Status: Active Protocol: Document 10/16/20 08:15 AMB (Rec: 10/16/20 15:32 AMB [id number]) Palpation Assessment Location One Palpation Location R foot Palpation Details Tenderness at achilles tendon, plantar fascia, metatarsals PT-OP-K Range of Motion Start: 10/16/20 08:12 Freq: Status: Active Protocol: Document 10/16/20 08:15 AMB (Rec: 10/16/20 14:12 AMB [email or web address]) Ankle and Foot Goniometric Range of Motion Ankle and Foot Left Passive Dorsiflexion with Knee Extended 5 Right Passive Dorsiflexion with Knee Extended 0 PT-OP-M Strength Start: 10/16/20 08:12 Freq: Status: Active Protocol: Document 10/16/20 08:15 AMB (Rec: 10/16/20 14:12 AMB [email or web address]) Ankle/Foot Strength Ankle and Foot Manual Muscle Testing Right Dorsiflexion (L4) 4 Good Plantarflexion (S1) 4- Good- Inversion 4 Good Eversion (S1) 4 Good Left Dorsiflexion (L4) 4+ Good+ Plantarflexion (S1) 4 Good Inversion 4 Good Eversion (S1) 4 Good Toe Strength Toe Manual Muscle Testing Left Great Toe Flexion 4+ Good+ Extension 4+ Good+ Right Great Toe Flexion 4+ Good+ Extension 4+ Good+ PT-OP-Q Treatments Start: 10/16/20 08:12 Freq: Status: Active Protocol: Document 10/23/20 07:30 AMB (Rec: 10/23/20 12:58 AMB [email or web address]) Cardio Equipment Treadmill Duration (Minutes) 3 Speed 2 Incline 0 Therapeutic Exercises Sitting Exercises 1 Sitting Exercise Name marble coal picker Comments 1 minute Standing Exercises 1 Standing Exercise Name heel raises Reps/Minutes 10 Comments bilateral gastroc/soleus stretch at wall Standing Exercise Name review controls engineer HEP Side bilateral Reps/Minutes 30 x2 each Comments good form Manual Therapy Treatment Soft Tissue Mobilization manual and self STMs B feet Body Location R plantar fascia distal and proximal, achilles> muscle gastroc/soleus Mobilization Type Cross-Friction,Myofascial Release Intensity/Depth Moderate Body Position Sitting Comments Long sitting manual>self using rolling pin/golf ball/marble Joint Mobilizations 1-5 MTP/IP/DIP Joint Bilateral Direction AP, PA, Grade I Body Position Supine Comments gentle ROM w/ instruction on self application with her good carryover demonstration PT-OP-T Assessment and Plan Start: 10/16/20 08:12 Freq: Status: Active Protocol: Document 10/23/20 07:30 AMB (Rec: 10/23/20 08:18 AMB [id number]) Physical Therapy Assessment Assessment Summary Assessment Cassandra felt improvement in both R and left feet at end of session. Does have a tendency to overdo manual and exercise so educated extensively on self manual and exercise and not pushing too far. Physical Therapy Plan Next Visit Focus/Plan Next Note Type Treatment Note Next Visit Plan Assess response to HEP calf stretching, initiated manual and instrument self STMs calves and plantar fascia. Next tx: added arch lift if tolerated seated and if standing if tolerated and possible ankle strengthening TB. Would she benefit from use of [place] sock in evening/ sleeping? Continue per PT POC: Review modifications of exercises given by controls engineer, given pt' s recent carpal tunnel and back pain. Instruct in self massage with instrument assistance.
--- NOTE | 2020-10-27 08:18 | PT.OTN ---
Current Diagnoses Hallux valgus (acquired), right foot (10/27/20) Hallux valgus (acquired), left foot (10/27/20) Other acquired deformities of right foot (10/27/20) Metatarsalgia, right foot (10/27/20) Physical Therapy Treatment Note PT-OP-A Visit Information Start: 10/16/20 08:12 Freq: Status: Active Protocol: Document 10/27/20 07:31 SP (Rec: 10/27/20 12:15 SP [id number]) Out-Patient Physical Therapy Visit Information Visit Information Visit Type Treatment Note Visit Note Pt brought copy pics of images of feet to be scanned in for our visual awareness. Visit Start Time 07:31 Visit Stop Time 08:18 Total Visit Minutes 47 Visit Number 4 Number of JOCKEY AGENT Visits 1 PT-OP-B Current Condition Start: 10/16/20 08:12 Freq: Status: Active Protocol: Document 10/16/20 08:15 AMB (Rec: 10/16/20 09:04 AMB [id number]) Current Condition History of Current Condition Onset Date Chronic Current Complaints R>L toe/foot History of Current Condition Cassandra reports great toe and second toe numbness on the right reports it is constant, not dependent on activity . No numbness in left foot. Pain is in both feet, worse on the right, started at least 30 years ago, although pt states they have always been painful. Currently wearing modified green superfeet from elevator troubleshooter. Standing, transfers, walking all increase the pain. She also reports balance issues, but denies any recent falls. Recent carpal tunnel releases bilateral. Denies falls in the last 6 months, but does have frequent near falls, reports recent L leg giving way at times- back issues. Prior Treatments and Tests cervical and lumbar mild stenosis, minimal grade 1 anterolisthesis L4-5, VNG waiting on results. 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 and bunion at 1st met head R>L Treatment Goals Patient/Caregiver Goals Previously walking on treadmill for 5 miles Prior Functional Status Baseline Function- ADL's Modified Independent Baseline Function- Mobility Modified Independent Current Functional Impairments (Reported) Functional Limitations- ADL's Reports more difficulty with walking, although did not provide firm timeline on when exactly walking became more difficult Personal Factors Other Personal Factors That May Effect Migraines, fibromyalgia, Therapy/Recovery depression PT-OP-C Subjective Start: 10/16/20 08:12 Freq: Status: Active Protocol: Document 10/27/20 07:31 SP (Rec: 10/27/20 12:15 SP [id number]) OP-PT Subjective Patient Comments Patient Comments Pt stated the manual 4th ray DIP and IP mob last tx was a little sore but went to [place] and he added support under B distal MTPs and has been helpful. Less burning sensation in B feet throughout day since manual and shoe support added. Is compliant with HEP and manual self instruction since last tx . Patient Reported Progress Improving PT-OP-G Mobility & Gait Start: 10/16/20 08:12 Freq: Status: Active Protocol: Document 10/16/20 08:15 AMB (Rec: 10/16/20 14:12 AMB [email or web address]) OP Gait Assessment Comments Gait Comments Pt able to walk short distances over smooth terrain with shoes and superfeet without obviously visible antalgic gait PT-OP-J Posture/Palpation/Skin Start: 10/16/20 08:12 Freq: Status: Active Protocol: Document 10/16/20 08:15 AMB (Rec: 10/16/20 15:32 AMB [id number]) Palpation Assessment Location One Palpation Location R foot Palpation Details Tenderness at achilles tendon, plantar fascia, metatarsals PT-OP-K Range of Motion Start: 10/16/20 08:12 Freq: Status: Active Protocol: Document 10/16/20 08:15 AMB (Rec: 10/16/20 14:12 AMB [email or web address]) Ankle and Foot Goniometric Range of Motion Ankle and Foot Left Passive Dorsiflexion with Knee Extended 5 Right Passive Dorsiflexion with Knee Extended 0 PT-OP-M Strength Start: 10/16/20 08:12 Freq: Status: Active Protocol: Document 10/16/20 08:15 AMB (Rec: 10/16/20 14:12 AMB [email or web address]) Ankle/Foot Strength Ankle and Foot Manual Muscle Testing Right Dorsiflexion (L4) 4 Good Plantarflexion (S1) 4- Good- Inversion 4 Good Eversion (S1) 4 Good Left Dorsiflexion (L4) 4+ Good+ Plantarflexion (S1) 4 Good Inversion 4 Good Eversion (S1) 4 Good Toe Strength Toe Manual Muscle Testing Left Great Toe Flexion 4+ Good+ Extension 4+ Good+ Right Great Toe Flexion 4+ Good+ Extension 4+ Good+ PT-OP-Q Treatments Start: 10/16/20 08:12 Freq: Status: Active Protocol: Document 10/27/20 07:31 SP (Rec: 10/27/20 12:15 SP [id number]) Cardio Equipment Recumbent Elliptical (Biodex) Duration (Minutes) 6 Resistance 3 Seat Position 7 Other 358 SPM Therapeutic Exercises Supine Exercises ankle DF, EV, IV TB Supine Exercise Name hooklying Side bilateral Resistance TB #1 Reps/Minutes 2x5 each Comments cued slow, no burning in plantar fascia like in sitting , better on back too ankle/ toe flexion TB Supine Exercise Name hooklying Side bilateral Resistance Tb #1 Reps/Minutes 2x5 reps w/ 30 sec rest between sets Comments Cued slow only 5 reps Manual Therapy Treatment Soft Tissue Mobilization manual and self STMs B feet Body Location R plantar fascia distal and proximal, achilles> muscle gastroc/soleus Mobilization Type Cross-Friction,Myofascial Release Intensity/Depth Moderate Body Position Sitting Comments sitting manual>self Joint Mobilizations 1-5 MTP/IP/DIP Joint Bilateral Direction AP, PA Grade I Body Position Sitting Comments gentle ROM w/ instruction on self application with her good carryover demonstration PT-OP-T Assessment and Plan Start: 10/16/20 08:12 Freq: Status: Active Protocol: Document 10/27/20 07:31 SP (Rec: 10/27/20 12:15 SP [id number]) Physical Therapy Assessment Goals Four Impairment Range of motion Short Term Goal (STG) Cassandra will improve her ankle dorsiflexion to 10 degrees bilaterally. STG Duration 4 weeks Three Impairment Strength Short Term Goal (STG) Cassandra will perform 5 double leg heel lifts without an increase in baseline pain. STG Duration 4 weeks Two Impairment HEP Obgyn Nurse Goal (LTG) Cassandra will be independent and consistent with a HEP for her feet that takes into account her other comorbidities. LTG Duration 8 weeks One Impairment Activity tolerance Short Term Goal (STG) Cassandra will walk over smooth surfaces for 6 minutes with 5/ 10 pain or less. STG Duration 4 weeks Long-Term Goal (LTG) Cassandra will walk over uneven terrain for 10 minutes without an increase in her baseline pain. LTG Duration 8 weeks Assessment Summary Assessment Pt reported increase in burning senstation to R ball of foot on biodex and noted R ankle weekness and mayb why. Burning went away post initiated arch lifts in sitting. Instructed ankle strengthening w/ TB with response better/ no burning in feet if hooklying so will continue in this position for now. Physical Therapy Plan Frequency and Duration Frequency of Treatment 2x/Week Duration of Treatment 6 weeks Plan of Care Start Date 10/16/20 Plan of Care End Date 11/27/20 Therapeutic Interventions Therapeutic Interventions Gait Training,Home Exercise Program,Joint Mobilizations, Manual Therapy,Neuromuscular Re-education,Self-Care/Home Management,Soft Tissue Mobilization,Therapeutic Activities,Therapeutic Exercises Modalities Cold Pack/Ice Massage,Hot Packs,Ultrasound Next Visit Focus/Plan Next Note Type Treatment Note Next Visit Plan PT to discuss vestibular therapy next tx. Assess response to arch lift, ankle TB, manual and biodex last tx. Next tx: review HEP, if ok apply arch lift in standing stable/foam. Continue per PT POC: Review modifications of exercises given by elevator troubleshooter, given pt' s recent carpal tunnel and back pain. Instruct in self massage with instrument assistance.
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
--- NOTE | 2020-10-30 15:17 | PT.OPPOC ---
Physical, Occupational & Speech Therapy At [facility] Current Diagnoses Hallux valgus (acquired), right foot (10/30/20) Hallux valgus (acquired), left foot (10/30/20) Other acquired deformities of right foot (10/30/20) Metatarsalgia, right foot (10/30/20) Dizziness and giddiness (10/30/20) Visit Care Team Role Provider Type Jacob Hampton MD Primary Care Provider Non-Staff Specialty: [facility] Address: [address] [place], [place] [address]i[facility], [address], [place], [address] Email: Choco Kaur DPM Attending Provider Non-Staff Referring Provider Specialty: Podiatry Address: [address] [place] [address], [phone] Email: Plan Of Care PT-OP-T Assessment and Plan Start: 10/16/20 08:12 Freq: Status: Active Protocol: Document 10/30/20 07:30 AMB (Rec: 10/31/20 08:55 AMB [email or web address]) Physical Therapy Assessment Goals Five Impairment Dizziness Short Term Goal (STG) Cassandra will turn her head right and left slowly without dizziness. STG Duration 4 weeks [facility] Goal (LTG) Cassandra will turn her head up and down slowly without dizziness. LTG Duration 8 weeks Four Impairment Range of motion Short Term Goal (STG) Cassandra will improve her ankle dorsiflexion to 10 degrees bilaterally. STG Duration 4 weeks Three Impairment Strength Short Term Goal (STG) Cassandra will perform 5 double leg heel lifts without an increase in baseline pain. STG Duration 4 weeks Two Impairment HEP [facility] Goal (LTG) Cassandra will be independent and consistent with a HEP for her feet that takes into account her other comorbidities. LTG Duration 8 weeks One Impairment Activity tolerance Short Term Goal (STG) Cassandra will walk over smooth surfaces for 6 minutes with 5/ 10 pain or less. STG Duration 4 weeks [facility] Goal (LTG) Cassandra will walk over uneven terrain for 10 minutes without an increase in her baseline pain. LTG Duration 8 weeks Assessment Summary Assessment Pt feels foot PT is going well , but concerned about balance. Did get VNG results from Dr. Munroe which present a mixed picture. Pt had previous cervical PT years ago and did not find helpful for dizziness. Will need to progress quite slowly. Insurance limits will likely impact ability to progress, as insurance is quite limited, and already working on foot pain this year . Will focus on cervicogenic dizziness to begin. Physical Therapy Plan Frequency and Duration Frequency of Treatment 2x/Week Duration of Treatment 6 weeks Plan of Care Start Date 10/16/20 Plan of Care End Date 11/27/20 Therapeutic Interventions Therapeutic Interventions Gait Training,Home Exercise Program,Joint Mobilizations, Manual Therapy,Neuromuscular Re-education,Self-Care/Home Management,Soft Tissue Mobilization,Therapeutic Activities,Therapeutic Exercises Modalities Cold Pack/Ice Massage,Hot Packs,Ultrasound Next Visit Focus/Plan Next Note Type Treatment Note Next Visit Plan Pt to continue with vestibular (cervical vs central) and foot PT. Plan of Care Dates Plan of Care Start Date 10/16/20 Plan of Care End Date 11/27/20 Electronically Signed by: Tiara Kumar, PT 10/31/20 [id number] Please Sign and Return: I have reviewed this Plan of Care and certify that the skilled therapy services above are required to meet the patient?s needs. Physician Signature Date Printed Name and Credentials Clinical Instructor Signature Printed Name and Credentials
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
--- NOTE | 2020-11-08 09:09 | PT.OTN ---
Current Diagnoses Hallux valgus (acquired), right foot (11/08/20) Hallux valgus (acquired), left foot (11/08/20) Other acquired deformities of right foot (11/08/20) Metatarsalgia, right foot (11/08/20) Dizziness and giddiness (11/08/20) Physical Therapy Treatment Note PT-OP-A Visit Information Start: 10/16/20 08:12 Freq: Status: Active Protocol: Document 11/08/20 08:15 AMB (Rec: 11/08/20 09:05 AMB [id number]) Out-Patient Physical Therapy Visit Information Visit Information Visit Type Treatment Note Visit Start Time 08:15 Visit Stop Time 09:00 Total Visit Minutes 45 Visit Number 7 PT-OP-B Current Condition Start: 10/16/20 08:12 Freq: Status: Active Protocol: Document 10/16/20 08:15 AMB (Rec: 10/16/20 09:04 AMB [id number]) Current Condition History of Current Condition Onset Date Chronic Current Complaints R>L toe/foot History of Current Condition Cassandra reports great toe and second toe numbness on the right reports it is constant, not dependent on activity . No numbness in left foot. Pain is in both feet, worse on the right, started at least 30 years ago, although pt states they have always been painful. 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 Standing, transfers, walking all increase the pain. She also reports balance issues, but denies any recent falls. Recent carpal tunnel releases bilateral. Denies falls in the last 6 months, but does have frequent near falls, reports recent L leg giving way at times- back issues. Prior Treatments and Tests cervical and lumbar mild stenosis, minimal grade 1 anterolisthesis L4-5, VNG waiting on results. 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 and bunion at 1st met head R>L Treatment Goals Patient/Caregiver Goals Previously walking on treadmill for 5 miles Prior Functional Status Baseline Function- ADL's Modified Independent Baseline Function- Mobility Modified Independent Current Functional Impairments (Reported) Functional Limitations- ADL's Reports more difficulty with walking, although did not provide firm timeline on when exactly walking became more difficult Personal Factors Other Personal Factors That May Effect Migraines, fibromyalgia, Therapy/Recovery depression PT-OP-C Subjective Start: 10/16/20 08:12 Freq: Status: Active Protocol: Document 11/08/20 08:15 AMB (Rec: 11/08/20 09:05 AMB [id number]) OP-PT Subjective Patient Comments Patient Comments Up to 6 seconds a few days ago , then up to 13 seconds yesterday with VOR exercises. PT-OP-G Mobility & Gait Start: 10/16/20 08:12 Freq: Status: Active Protocol: Document 10/16/20 08:15 AMB (Rec: 10/16/20 14:12 AMB [email or web address]) OP Gait Assessment Comments Gait Comments Pt able to walk short distances over smooth terrain with shoes and superfeet without obviously visible antalgic gait PT-OP-J Posture/Palpation/Skin Start: 10/16/20 08:12 Freq: Status: Active Protocol: Document 10/16/20 08:15 AMB (Rec: 10/16/20 15:32 AMB [id number]) Palpation Assessment Location One Palpation Location R foot Palpation Details Tenderness at achilles tendon, plantar fascia, metatarsals PT-OP-K Range of Motion Start: 10/16/20 08:12 Freq: Status: Active Protocol: Document 10/16/20 08:15 AMB (Rec: 10/16/20 14:12 AMB [email or web address]) Ankle and Foot Goniometric Range of Motion Ankle and Foot Left Passive Dorsiflexion with Knee Extended 5 Right Passive Dorsiflexion with Knee Extended 0 PT-OP-M Strength Start: 10/16/20 08:12 Freq: Status: Active Protocol: Document 10/16/20 08:15 AMB (Rec: 10/16/20 14:12 AMB [email or web address]) Ankle/Foot Strength Ankle and Foot Manual Muscle Testing Right Dorsiflexion (L4) 4 Good Plantarflexion (S1) 4- Good- Inversion 4 Good Eversion (S1) 4 Good Left Dorsiflexion (L4) 4+ Good+ Plantarflexion (S1) 4 Good Inversion 4 Good Eversion (S1) 4 Good Toe Strength Toe Manual Muscle Testing Left Great Toe Flexion 4+ Good+ Extension 4+ Good+ Right Great Toe Flexion 4+ Good+ Extension 4+ Good+ PT-OP-Q Treatments Start: 10/16/20 08:12 Freq: Status: Active Protocol: Document 11/08/20 08:15 AMB (Rec: 11/08/20 09:05 [facility] [id number]) Manual Therapy Treatment Soft Tissue Mobilization manual and self STMs B feet Body Location R plantar fascia distal and proximal, achilles> muscle gastroc/soleus Mobilization Type Cross-Friction,Myofascial Release Intensity/Depth Moderate Body Position Sitting Comments sitting manual>self Joint Mobilizations 1-5 MTP/IP/DIP Joint Bilateral Direction AP, PA Grade I Body Position Sitting Comments gentle ROM w/ instruction on self application with her good carryover demonstration Manual Traction Cervical Body Position Hooklying Reps/Duration 10 min Neuro Re-Education Treatment Balance Activities 1 Details standing balance with head turns Comments slow, focus on heel and ball of foot balance PT-OP-T Assessment and Plan Start: 10/16/20 08:12 Freq: Status: Active Protocol: Document 11/08/20 08:15 [facility] (Rec: 11/08/20 09:05 [facility] [id number]) Physical Therapy Assessment Assessment Summary Assessment Pt tolerated manual well, did have dizziness with very slow head turns, but was able to recover after a brief rest. Physical Therapy Plan Next Visit Focus/Plan Next Note Type Treatment Note Next Visit Plan Pt to continue with vestibular (cervical vs central) and foot PT.
--- NOTE | 2020-11-21 15:11 | PT.OTN ---
Current Diagnoses Hallux valgus (acquired), right foot (11/21/20) Hallux valgus (acquired), left foot (11/21/20) Other acquired deformities of right foot (11/21/20) Metatarsalgia, right foot (11/21/20) Dizziness and giddiness (11/21/20) Physical Therapy Treatment Note PT-OP-A Visit Information Start: 10/16/20 08:12 Freq: Status: Active Protocol: Document 11/21/20 09:00 AMB (Rec: 11/21/20 09:27 AMB [id number]) Out-Patient Physical Therapy Visit Information Visit Information Visit Type Treatment Note Visit Start Time 09:00 Visit Stop Time 09:45 Total Visit Minutes 45 Visit Number 8 PT-OP-B Current Condition Start: 10/16/20 08:12 Freq: Status: Active Protocol: Document 10/16/20 08:15 AMB (Rec: 10/16/20 09:04 AMB [id number]) Current Condition History of Current Condition Onset Date Chronic Current Complaints R>L toe/foot History of Current Condition Cassandra reports great toe and second toe numbness on the right reports it is constant, not dependent on activity . No numbness in left foot. Pain is in both feet, worse on the right, started at least 30 years ago, although pt states they have always been painful. Currently wearing modified green superfeet from offal baler. Standing, transfers, walking all increase the pain. She also reports balance issues, but denies any recent falls. Recent carpal tunnel releases bilateral. Denies falls in the last 6 months, but does have frequent near falls, reports recent L leg giving way at times- back issues. Prior Treatments and Tests cervical and lumbar mild stenosis, minimal grade 1 anterolisthesis L4-5, VNG waiting on results. 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 and bunion at 1st met head R>L Treatment Goals Patient/Caregiver Goals Previously walking on treadmill for 5 miles Prior Functional Status Baseline Function- ADL's Modified Independent Baseline Function- Mobility Modified Independent Current Functional Impairments (Reported) Functional Limitations- ADL's Reports more difficulty with walking, although did not provide firm timeline on when exactly walking became more difficult Personal Factors Other Personal Factors That May Effect Migraines, fibromyalgia, Therapy/Recovery depression PT-OP-C Subjective Start: 10/16/20 08:12 Freq: Status: Active Protocol: Document 11/21/20 09:00 AMB (Rec: 11/21/20 09:27 AMB [id number]) OP-PT Subjective Patient Comments Patient Comments Pt is feeling like feet are going really well, doing her exercises and managing symptoms even with walking over uneven terrain PT-OP-G Mobility & Gait Start: 10/16/20 08:12 Freq: Status: Active Protocol: Document 10/16/20 08:15 AMB (Rec: 10/16/20 14:12 AMB [email or web address]) OP Gait Assessment Comments Gait Comments Pt able to walk short distances over smooth terrain with shoes and superfeet without obviously visible antalgic gait PT-OP-J Posture/Palpation/Skin Start: 10/16/20 08:12 Freq: Status: Active Protocol: Document 10/16/20 08:15 AMB (Rec: 10/16/20 15:32 AMB [id number]) Palpation Assessment Location One Palpation Location R foot Palpation Details Tenderness at achilles tendon, plantar fascia, metatarsals PT-OP-K Range of Motion Start: 10/16/20 08:12 Freq: Status: Active Protocol: Document 10/16/20 08:15 AMB (Rec: 10/16/20 14:12 AMB [email or web address]) Ankle and Foot Goniometric Range of Motion Ankle and Foot Left Passive Dorsiflexion with Knee Extended 5 Right Passive Dorsiflexion with Knee Extended 0 PT-OP-M Strength Start: 10/16/20 08:12 Freq: Status: Active Protocol: Document 10/16/20 08:15 AMB (Rec: 10/16/20 14:12 AMB [email or web address]) Ankle/Foot Strength Ankle and Foot Manual Muscle Testing Right Dorsiflexion (L4) 4 Good Plantarflexion (S1) 4- Good- Inversion 4 Good Eversion (S1) 4 Good Left Dorsiflexion (L4) 4+ Good+ Plantarflexion (S1) 4 Good Inversion 4 Good Eversion (S1) 4 Good Toe Strength Toe Manual Muscle Testing Left Great Toe Flexion 4+ Good+ Extension 4+ Good+ Right Great Toe Flexion 4+ Good+ Extension 4+ Good+ PT-OP-Q Treatments Start: 10/16/20 08:12 Freq: Status: Active Protocol: Document 11/21/20 09:00 AMB (Rec: 11/21/20 15:08 AMB [email or web address]) Therapeutic Exercises Supine Exercises ankle DF, EV, IV TB Supine Exercise Name hooklying Side bilateral Resistance TB #1 Reps/Minutes 2x5 each Comments can consider increasing resistance Sitting Exercises 2 Sitting Exercise Name orellana stretch Reps/Minutes 30x3 1 Sitting Exercise Name toe tapping alternating Reps/Minutes 30 sec Standing Exercises 2 Standing Exercise Name heel raise- partial on stair Reps/Minutes 2x10 Comments from dorsiflexed to neutral position to avoid pain gastroc/soleus stretch at wall Standing Exercise Name review offal baler HEP Side bilateral Reps/Minutes 30 x2 each Comments good form Neuro Re-Education Treatment Balance Activities 2 Details foam balance Comments difficult- focus on upright posture pt tends to have increased lumbar lordosis and increased thoracic kyphosis 1 Details standing balance with head turns Comments slow, focus on heel and ball of foot balance PT-OP-T Assessment and Plan Start: 10/16/20 08:12 Freq: Status: Active Protocol: Document 11/21/20 09:00 AMB (Rec: 11/21/20 09:27 AMB [id number]) Physical Therapy Assessment Goals Five Impairment Dizziness Short Term Goal (STG) Cassandra will turn her head right and left slowly without dizziness. STG Duration 4 weeks Alf Goal (LTG) Cassandra will turn her head up and down slowly without dizziness. LTG Duration 8 weeks Four Impairment Range of motion Short Term Goal (STG) Cassandra will improve her ankle dorsiflexion to 10 degrees bilaterally. STG Duration 4 weeks Three Impairment Strength Short Term Goal (STG) Cassandra will perform 5 double leg heel lifts without an increase in baseline pain. STG Duration 4 weeks Two Impairment HEP Blocking Machine Operator Second Goal (LTG) Cassandra will be independent and consistent with a HEP for her feet that takes into account her other comorbidities. LTG Duration 8 weeks One Impairment Activity tolerance Short Term Goal (STG) Cassandra will walk over smooth surfaces for 6 minutes with 5/ 10 pain or less. STG Duration MET Blocking Machine Operator Second Goal (LTG) Cassandra will walk over uneven terrain for 10 minutes without an increase in her baseline pain.--did increase pain but can manage with exercises and comes back down quickly LTG Duration 8 weeks Assessment Summary Assessment Cassandra has shown progress with her ankle flexibility and is showing decreasing foot pain. She does continue to have impaired balance/vor/dizziness with head movement. Her upper back pain also limits her function, but overall her tolerance for activity is improving well. Physical Therapy Plan Next Visit Focus/Plan Next Note Type Treatment Note Next Visit Plan Pt to continue with vestibular (cervical vs central) and foot strengthening, working on increased tolerance to walking, bending, squatting.
--- NOTE | 2020-12-12 09:00 | PT.OTN ---
Current Diagnoses Hallux valgus (acquired), right foot (12/12/20) Hallux valgus (acquired), left foot (12/12/20) Other acquired deformities of right foot (12/12/20) Metatarsalgia, right foot (12/12/20) Dizziness and giddiness (12/12/20) Physical Therapy Treatment Note PT-OP-A Visit Information Start: 10/16/20 08:12 Freq: Status: Active Protocol: Document 12/12/20 07:30 AMB (Rec: 12/16/20 08:51 AMB [email or web address]) Out-Patient Physical Therapy Visit Information Visit Information Visit Type Progress Note Visit Start Time 07:30 Visit Stop Time 08:15 Total Visit Minutes 45 Visit Number 9 PT-OP-B Current Condition Start: 10/16/20 08:12 Freq: Status: Active Protocol: Document 10/16/20 08:15 AMB (Rec: 10/16/20 09:04 AMB [id number]) Current Condition History of Current Condition Onset Date Chronic Current Complaints R>L toe/foot History of Current Condition Cassandra reports great toe and second toe numbness on the right reports it is constant, not dependent on activity . No numbness in left foot. Pain is in both feet, worse on the right, started at least 30 years ago, although pt states they have always been painful. Currently wearing modified green superfeet from api developer. Standing, transfers, walking all increase the pain. She also reports balance issues, but denies any recent falls. Recent carpal tunnel releases bilateral. Denies falls in the last 6 months, but does have frequent near falls, reports recent L leg giving way at times- back issues. Prior Treatments and Tests cervical and lumbar mild stenosis, minimal grade 1 anterolisthesis L4-5, VNG waiting on results. 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 and bunion at 1st met head R>L Treatment Goals Patient/Caregiver Goals Previously walking on treadmill for 5 miles Prior Functional Status Baseline Function- ADL's Modified Independent Baseline Function- Mobility Modified Independent Current Functional Impairments (Reported) Functional Limitations- ADL's Reports more difficulty with walking, although did not provide firm timeline on when exactly walking became more difficult Personal Factors Other Personal Factors That May Effect Migraines, fibromyalgia, Therapy/Recovery depression PT-OP-C Subjective Start: 10/16/20 08:12 Freq: Status: Active Protocol: Document 12/12/20 07:30 AMB (Rec: 12/16/20 08:51 AMB [email or web address]) OP-PT Subjective Patient Comments Patient Comments Pt states that her feet are the bigger of the two limiting factors when it comes to feet vs vestibular. she feels that both are improving with physical therapy, but feet continue to be painful if she is up on her feet for two long . She is trying to work on her head turn activities, but her neck pain is a limiting factor with this. PT-OP-G Mobility & Gait Start: 10/16/20 08:12 Freq: Status: Active Protocol: Document 10/16/20 08:15 AMB (Rec: 10/16/20 14:12 AMB [email or web address]) OP Gait Assessment Comments Gait Comments Pt able to walk short distances over smooth terrain with shoes and superfeet without obviously visible antalgic gait PT-OP-J Posture/Palpation/Skin Start: 10/16/20 08:12 Freq: Status: Active Protocol: Document 10/16/20 08:15 AMB (Rec: 10/16/20 15:32 AMB [id number]) Palpation Assessment Location One Palpation Location R foot Palpation Details Tenderness at achilles tendon, plantar fascia, metatarsals PT-OP-K Range of Motion Start: 10/16/20 08:12 Freq: Status: Active Protocol: Document 10/16/20 08:15 AMB (Rec: 10/16/20 14:12 AMB [email or web address]) Ankle and Foot Goniometric Range of Motion Ankle and Foot Left Passive Dorsiflexion with Knee Extended 5 Right Passive Dorsiflexion with Knee Extended 0 PT-OP-M Strength Start: 10/16/20 08:12 Freq: Status: Active Protocol: Document 10/16/20 08:15 AMB (Rec: 10/16/20 14:12 AMB [email or web address]) Ankle/Foot Strength Ankle and Foot Manual Muscle Testing Right Dorsiflexion (L4) 4 Good Plantarflexion (S1) 4- Good- Inversion 4 Good Eversion (S1) 4 Good Left Dorsiflexion (L4) 4+ Good+ Plantarflexion (S1) 4 Good Inversion 4 Good Eversion (S1) 4 Good Toe Strength Toe Manual Muscle Testing Left Great Toe Flexion 4+ Good+ Extension 4+ Good+ Right Great Toe Flexion 4+ Good+ Extension 4+ Good+ PT-OP-Q Treatments Start: 10/16/20 08:12 Freq: Status: Active Protocol: Document 12/12/20 07:30 AMB (Rec: 12/16/20 08:51 AMB [email or web address]) Therapeutic Exercises Supine Exercises ankle DF, EV, IV TB Supine Exercise Name hooklying Side bilateral Resistance TB #2 Reps/Minutes 2x5 each Standing Exercises gastroc/soleus stretch at wall Standing Exercise Name review api developer HEP Side bilateral Reps/Minutes 30 x2 each Comments good form Manual Therapy Treatment Soft Tissue Mobilization manual and self STMs B feet Body Location R plantar fascia distal and proximal, achilles> muscle gastroc/soleus Mobilization Type Cross-Friction,Myofascial Release Intensity/Depth Moderate Body Position Sitting Comments sitting manual>self Joint Mobilizations 1-5 MTP/IP/DIP Joint Bilateral Direction AP, PA Grade I Body Position Sitting Comments gentle ROM w/ instruction on self application with her good carryover demonstration PT-OP-T Assessment and Plan Start: 10/16/20 08:12 Freq: Status: Active Protocol: Document 12/12/20 07:30 AMB (Rec: 12/12/20 07:40 AMB [id number]) Physical Therapy Assessment Goals Five Impairment Dizziness Short Term Goal (STG) Cassandra will turn her head right and left slowly without dizziness. 12/12: Not yet met STG Duration 4 weeks Fpc Goal (LTG) Cassandra will turn her head up and down slowly without dizziness. 12/12: Not yet met LTG Duration 8 weeks Four Impairment Range of motion Short Term Goal (STG) Cassandra will improve her ankle dorsiflexion to 10 degrees bilaterally. STG Duration PROGRESS MADE Three Impairment Strength Short Term Goal (STG) Cassandra will perform 5 double leg heel lifts without an increase in baseline pain. STG Duration MET Two Impairment HEP Die Casting Machine Operator Goal (LTG) Cassandra will be independent and consistent with a HEP for her feet that takes into account her other comorbidities. LTG Duration MET One Impairment Activity tolerance Short Term Goal (STG) Cassandra will walk over smooth surfaces for 6 minutes with 5/ 10 pain or less. STG Duration MET Die Casting Machine Operator Goal (LTG) Cassandra will walk over uneven terrain for 10 minutes without an increase in her baseline pain.--did increase pain but can manage with exercises and comes back down quickly LTG Duration 8 weeks Assessment Summary Assessment Cassandra attends physical therapy stating that overall she is feeling better. She continues to have foot pain, but feels like she is managing it better overall. Walking over uneven terrain continues to be painful. Vestibular function cervantes, she still has difficulty with any head turns , and it is difficult to work on this due to her neck pain. Given the chronic nature of both impairments and the good progress with her foot pain so far, she would benefit from continued physical therapy to progress her ROM, strength, gait, and vestibular function. Physical Therapy Plan Frequency and Duration Frequency of Treatment 1x/Week Duration of Treatment 8 weeks Plan of Care Start Date 12/12/20 Plan of Care End Date 02/06/21 Therapeutic Interventions Therapeutic Interventions Gait Training,Home Exercise Program,Joint Mobilizations, Manual Therapy,Neuromuscular Re-education,Self-Care/Home Management,Therapeutic Activities,Therapeutic Exercises Modalities Electric Stimulation, Ultrasound Next Visit Focus/Plan Next Note Type Treatment Note Next Visit Plan Progress ROM/strengthening of bilateral feet, continue vestibular rehab per pt's tolerance
--- NOTE | 2020-12-12 09:00 | PT.OPPOC ---
Physical, Occupational & Speech Therapy At [facility] Current Diagnoses Hallux valgus (acquired), right foot (12/12/20) Hallux valgus (acquired), left foot (12/12/20) Other acquired deformities of right foot (12/12/20) Metatarsalgia, right foot (12/12/20) Dizziness and giddiness (12/12/20) Visit Care Team Role Provider Type Jacob Hampton MD Primary Care Provider Non-Staff Specialty: [facility] Address: [address] [place], [place] [address], [address], [place], [address] Email: Choco Kaur DPM Attending Provider Non-Staff Referring Provider Specialty: Podiatry Address: [address] [place] [address], [id number] Email: Plan Of Care PT-OP-T Assessment and Plan Start: 10/16/20 08:12 Freq: Status: Active Protocol: Document 12/12/20 07:30 AMB (Rec: 12/12/20 07:40 AMB [id number]) Physical Therapy Assessment Goals Five Impairment Dizziness Short Term Goal (STG) Cassandra will turn her head right and left slowly without dizziness. 12/12: Not yet met STG Duration 4 weeks Longterm Goal (LTG) Cassandra will turn her head up and down slowly without dizziness. 12/12: Not yet met LTG Duration 8 weeks Four Impairment Range of motion Short Term Goal (STG) Cassandra will improve her ankle dorsiflexion to 10 degrees bilaterally. STG Duration PROGRESS MADE Three Impairment Strength Short Term Goal (STG) Cassandra will perform 5 double leg heel lifts without an increase in baseline pain. STG Duration MET Two Impairment HEP Longterm Goal (LTG) Cassandra will be independent and consistent with a HEP for her feet that takes into account her other comorbidities. LTG Duration MET One Impairment Activity tolerance Short Term Goal (STG) Cassandra will walk over smooth surfaces for 6 minutes with 5/ 10 pain or less. STG Duration MET Longterm Goal (LTG) Cassandra will walk over uneven terrain for 10 minutes without an increase in her baseline pain.--did increase pain but can manage with exercises and comes back down quickly LTG Duration 8 weeks Assessment Summary Assessment Cassandra attends physical therapy stating that overall she is feeling better. She continues to have foot pain, but feels like she is managing it better overall. Walking over uneven terrain continues to be painful. Vestibular function cervantes, she still has difficulty with any head turns , and it is difficult to work on this due to her neck pain. Given the chronic nature of both impairments and the good progress with her foot pain so far, she would benefit from continued physical therapy to progress her ROM, strength, gait, and vestibular function. Physical Therapy Plan Frequency and Duration Frequency of Treatment 1x/Week Duration of Treatment 8 weeks Plan of Care Start Date 12/12/20 Plan of Care End Date 02/06/21 Therapeutic Interventions Therapeutic Interventions Gait Training,Home Exercise Program,Joint Mobilizations, Manual Therapy,Neuromuscular Re-education,Self-Care/Home Management,Therapeutic Activities,Therapeutic Exercises Modalities Electric Stimulation, Ultrasound Next Visit Focus/Plan Next Note Type Treatment Note Next Visit Plan Progress ROM/strengthening of bilateral feet, continue vestibular rehab per pt's tolerance Plan of Care Dates Plan of Care Start Date 12/12/20 Plan of Care End Date 02/06/21 Electronically Signed by: Tiara Kumar, PT 12/16/20 0900 Please Sign and Return: I have reviewed this Plan of Care and certify that the skilled therapy services above are required to meet the patient?s needs. Physician Signature Date Printed Name and Credentials Clinical Instructor Signature Printed Name and Credentials
--- NOTE | 2020-12-18 08:56 | PT.OTN ---
Current Diagnoses Hallux valgus (acquired), right foot (12/18/20) Hallux valgus (acquired), left foot (12/18/20) Other acquired deformities of right foot (12/18/20) Metatarsalgia, right foot (12/18/20) Dizziness and giddiness (12/18/20) Physical Therapy Treatment Note PT-OP-A Visit Information Start: 10/16/20 08:12 Freq: Status: Active Protocol: Document 12/18/20 08:15 AMB (Rec: 12/18/20 08:50 AMB [id number]) Out-Patient Physical Therapy Visit Information Visit Information Visit Type Treatment Note Visit Start Time 08:15 Visit Stop Time 09:00 Total Visit Minutes 45 Visit Number 10 PT-OP-B Current Condition Start: 10/16/20 08:12 Freq: Status: Active Protocol: Document 10/16/20 08:15 AMB (Rec: 10/16/20 09:04 AMB [id number]) Current Condition History of Current Condition Onset Date Chronic Current Complaints R>L toe/foot History of Current Condition Cassandra reports great toe and second toe numbness on the right reports it is constant, not dependent on activity . No numbness in left foot. Pain is in both feet, worse on the right, started at least 30 years ago, although pt states they have always been painful. Currently wearing modified green superfeet from geophysical laboratory director. Standing, transfers, walking all increase the pain. She also reports balance issues, but denies any recent falls. Recent carpal tunnel releases bilateral. Denies falls in the last 6 months, but does have frequent near falls, reports recent L leg giving way at times- back issues. Prior Treatments and Tests cervical and lumbar mild stenosis, minimal grade 1 anterolisthesis L4-5, VNG waiting on results. 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 and bunion at 1st met head R>L Treatment Goals Patient/Caregiver Goals Previously walking on treadmill for 5 miles Prior Functional Status Baseline Function- ADL's Modified Independent Baseline Function- Mobility Modified Independent Current Functional Impairments (Reported) Functional Limitations- ADL's Reports more difficulty with walking, although did not provide firm timeline on when exactly walking became more difficult Personal Factors Other Personal Factors That May Effect Migraines, fibromyalgia, Therapy/Recovery depression PT-OP-C Subjective Start: 10/16/20 08:12 Freq: Status: Active Protocol: Document 12/18/20 08:15 AMB (Rec: 12/18/20 08:50 AMB [id number]) OP-PT Subjective Patient Comments Patient Comments Pt felt really good after last appointment for about 4 days, then weather changed, and then got a migraine and pain increased. PT-OP-G Mobility & Gait Start: 10/16/20 08:12 Freq: Status: Active Protocol: Document 10/16/20 08:15 AMB (Rec: 10/16/20 14:12 AMB [email or web address]) OP Gait Assessment Comments Gait Comments Pt able to walk short distances over smooth terrain with shoes and superfeet without obviously visible antalgic gait PT-OP-J Posture/Palpation/Skin Start: 10/16/20 08:12 Freq: Status: Active Protocol: Document 10/16/20 08:15 AMB (Rec: 10/16/20 15:32 AMB [id number]) Palpation Assessment Location One Palpation Location R foot Palpation Details Tenderness at achilles tendon, plantar fascia, metatarsals PT-OP-K Range of Motion Start: 10/16/20 08:12 Freq: Status: Active Protocol: Document 10/16/20 08:15 AMB (Rec: 10/16/20 14:12 AMB [email or web address]) Ankle and Foot Goniometric Range of Motion Ankle and Foot Left Passive Dorsiflexion with Knee Extended 5 Right Passive Dorsiflexion with Knee Extended 0 PT-OP-M Strength Start: 10/16/20 08:12 Freq: Status: Active Protocol: Document 10/16/20 08:15 AMB (Rec: 10/16/20 14:12 AMB [email or web address]) Ankle/Foot Strength Ankle and Foot Manual Muscle Testing Right Dorsiflexion (L4) 4 Good Plantarflexion (S1) 4- Good- Inversion 4 Good Eversion (S1) 4 Good Left Dorsiflexion (L4) 4+ Good+ Plantarflexion (S1) 4 Good Inversion 4 Good Eversion (S1) 4 Good Toe Strength Toe Manual Muscle Testing Left Great Toe Flexion 4+ Good+ Extension 4+ Good+ Right Great Toe Flexion 4+ Good+ Extension 4+ Good+ PT-OP-Q Treatments Start: 10/16/20 08:12 Freq: Status: Active Protocol: Document 12/18/20 08:15 AMB (Rec: 12/18/20 08:50 AMB [id number]) Therapeutic Exercises Supine Exercises ankle DF, EV, IV TB Supine Exercise Name hooklying Side bilateral Resistance TB #3 Reps/Minutes 3x5 each Standing Exercises 2 Standing Exercise Name heel raise- partial on stair Reps/Minutes 2x10 Comments from dorsiflexed to neutral position to avoid pain 1 Standing Exercise Name ALEX Reps/Minutes 2min gastroc/soleus stretch at wall Standing Exercise Name review geophysical laboratory director HEP Side bilateral Reps/Minutes 30 x2 each Comments good form Manual Therapy Treatment Soft Tissue Mobilization manual and self STMs B feet Body Location R plantar fascia distal and proximal, achilles> muscle gastroc/soleus Mobilization Type Cross-Friction,Myofascial Release Intensity/Depth Moderate Body Position Sitting Comments sitting manual>self PT-OP-R Modalities Start: 10/16/20 08:12 Freq: Status: Active Protocol: Document 12/18/20 08:15 AMB (Rec: 12/18/20 08:55 AMB [id number]) Ultrasound Therapy Treatment Right Foot Treatment Duration (minutes) 10 Patient Position Sidelying Coupling Medium Ultrasound Gel Frequency Setting (mHz) 1 Intensity Setting (w/cm2) 1.5 PT-OP-T Assessment and Plan Start: 10/16/20 08:12 Freq: Status: Active Protocol: Document 12/18/20 08:15 AMB (Rec: 12/18/20 08:50 AMB [id number]) Physical Therapy Assessment Assessment Summary Assessment Cassandra is progressing her exercise and doing more resistance. She really likes the ultrasound Physical Therapy Plan Next Visit Focus/Plan Next Note Type Treatment Note Next Visit Plan Progress ROM/strengthening of bilateral feet, continue vestibular rehab per pt's tolerance, continue ultrasound per pt preference
--- NOTE | 2020-12-27 14:45 | PT.OTN ---
Current Diagnoses Hallux valgus (acquired), right foot (12/27/20) Hallux valgus (acquired), left foot (12/27/20) Other acquired deformities of right foot (12/27/20) Metatarsalgia, right foot (12/27/20) Dizziness and giddiness (12/27/20) Physical Therapy Treatment Note PT-OP-A Visit Information Start: 10/16/20 08:12 Freq: Status: Active Protocol: Document 12/27/20 12:45 AMB (Rec: 12/27/20 13:05 AMB [id number]) Out-Patient Physical Therapy Visit Information Visit Information Visit Type Treatment Note Visit Start Time 12:45 Visit Stop Time 13:30 Total Visit Minutes 45 Visit Number 11 PT-OP-B Current Condition Start: 10/16/20 08:12 Freq: Status: Active Protocol: Document 10/16/20 08:15 AMB (Rec: 10/16/20 09:04 AMB [id number]) Current Condition History of Current Condition Onset Date Chronic Current Complaints R>L toe/foot History of Current Condition Cassandra reports great toe and second toe numbness on the right reports it is constant, not dependent on activity . No numbness in left foot. Pain is in both feet, worse on the right, started at least 30 years ago, although pt states they have always been painful. Currently wearing modified green superfeet from packaging inspector. Standing, transfers, walking all increase the pain. She also reports balance issues, but denies any recent falls. Recent carpal tunnel releases bilateral. Denies falls in the last 6 months, but does have frequent near falls, reports recent L leg giving way at times- back issues. Prior Treatments and Tests cervical and lumbar mild stenosis, minimal grade 1 anterolisthesis L4-5, VNG waiting on results. 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 and bunion at 1st met head R>L Treatment Goals Patient/Caregiver Goals Previously walking on treadmill for 5 miles Prior Functional Status Baseline Function- ADL's Modified Independent Baseline Function- Mobility Modified Independent Current Functional Impairments (Reported) Functional Limitations- ADL's Reports more difficulty with walking, although did not provide firm timeline on when exactly walking became more difficult Personal Factors Other Personal Factors That May Effect Migraines, fibromyalgia, Therapy/Recovery depression PT-OP-C Subjective Start: 10/16/20 08:12 Freq: Status: Active Protocol: Document 12/27/20 12:45 AMB (Rec: 12/27/20 13:05 AMB [id number]) OP-PT Subjective Patient Comments Patient Comments Pt's back pain has been flaring up over the past 5 days and she is wondering if we can modifiy her exercises to decrease the back pain that she gets when she does her foot exercises. PT-OP-G Mobility & Gait Start: 10/16/20 08:12 Freq: Status: Active Protocol: Document 10/16/20 08:15 AMB (Rec: 10/16/20 14:12 AMB [email or web address]) OP Gait Assessment Comments Gait Comments Pt able to walk short distances over smooth terrain with shoes and superfeet without obviously visible antalgic gait PT-OP-J Posture/Palpation/Skin Start: 10/16/20 08:12 Freq: Status: Active Protocol: Document 10/16/20 08:15 AMB (Rec: 10/16/20 15:32 AMB [id number]) Palpation Assessment Location One Palpation Location R foot Palpation Details Tenderness at achilles tendon, plantar fascia, metatarsals PT-OP-K Range of Motion Start: 10/16/20 08:12 Freq: Status: Active Protocol: Document 10/16/20 08:15 AMB (Rec: 10/16/20 14:12 AMB [email or web address]) Ankle and Foot Goniometric Range of Motion Ankle and Foot Left Passive Dorsiflexion with Knee Extended 5 Right Passive Dorsiflexion with Knee Extended 0 PT-OP-M Strength Start: 10/16/20 08:12 Freq: Status: Active Protocol: Document 10/16/20 08:15 AMB (Rec: 10/16/20 14:12 AMB [email or web address]) Ankle/Foot Strength Ankle and Foot Manual Muscle Testing Right Dorsiflexion (L4) 4 Good Plantarflexion (S1) 4- Good- Inversion 4 Good Eversion (S1) 4 Good Left Dorsiflexion (L4) 4+ Good+ Plantarflexion (S1) 4 Good Inversion 4 Good Eversion (S1) 4 Good Toe Strength Toe Manual Muscle Testing Left Great Toe Flexion 4+ Good+ Extension 4+ Good+ Right Great Toe Flexion 4+ Good+ Extension 4+ Good+ PT-OP-Q Treatments Start: 10/16/20 08:12 Freq: Status: Active Protocol: Document 12/27/20 12:45 AMB (Rec: 12/27/20 13:05 AMB [id number]) Therapeutic Exercises Supine Exercises ankle DF, EV, IV TB Supine Exercise Name hooklying Side bilateral Resistance TB #3 Reps/Minutes 3x5 each Comments supine instead of hooklying for back pain today ankle/ toe flexion TB Supine Exercise Name hooklying Side bilateral Resistance Tb #1 Reps/Minutes 2x5 reps w/ 30 sec rest between sets Comments Cued slow only 5 reps Standing Exercises gastroc/soleus stretch at wall Standing Exercise Name review packaging inspector HEP Side bilateral Reps/Minutes 30 x2 each Comments good form Manual Therapy Treatment Soft Tissue Mobilization manual and self STMs B feet Body Location R plantar fascia distal and proximal, achilles> muscle gastroc/soleus Mobilization Type Cross-Friction,Myofascial Release Intensity/Depth Moderate Body Position Sitting Comments sitting manual>self Joint Mobilizations 1-5 MTP/IP/DIP Joint Bilateral Direction AP, PA Grade I Body Position Sitting Comments gentle ROM w/ instruction on self application with her good carryover demonstration PT-OP-R Modalities Start: 10/16/20 08:12 Freq: Status: Active Protocol: Document 12/27/20 12:45 AMB (Rec: 12/27/20 13:05 AMB [id number]) Ultrasound Therapy Treatment Right Foot Treatment Duration (minutes) 10 Patient Position Sidelying Coupling Medium Ultrasound Gel Frequency Setting (mHz) 1 Intensity Setting (w/cm2) 1.5 PT-OP-T Assessment and Plan Start: 10/16/20 08:12 Freq: Status: Active Protocol: Document 12/27/20 12:45 AMB (Rec: 12/27/20 13:30 AMB [id number]) Physical Therapy Assessment Assessment Summary Assessment Cassandra was encouraged to not progress her exercises this week to try to get her back back to baseline. Can consider progression next visit if midback is better. Physical Therapy Plan Next Visit Focus/Plan Next Note Type Treatment Note Next Visit Plan Progress ROM/strengthening of bilateral feet, continue vestibular rehab per pt's tolerance, continue ultrasound per pt preference
--- NOTE | 2021-01-01 09:17 | PT.OTN ---
Current Diagnoses Hallux valgus (acquired), right foot (01/01/21) Hallux valgus (acquired), left foot (01/01/21) Other acquired deformities of right foot (01/01/21) Metatarsalgia, right foot (01/01/21) Dizziness and giddiness (01/01/21) Physical Therapy Treatment Note PT-OP-A Visit Information Start: 10/16/20 08:12 Freq: Status: Active Protocol: Document 01/01/21 08:16 AMB (Rec: 01/01/21 08:45 AMB [id number]) Out-Patient Physical Therapy Visit Information Visit Information Visit Type Treatment Note Visit Start Time 08:15 Visit Stop Time 09:00 Total Visit Minutes 45 Visit Number 12 PT-OP-B Current Condition Start: 10/16/20 08:12 Freq: Status: Active Protocol: Document 10/16/20 08:15 AMB (Rec: 10/16/20 09:04 AMB [id number]) Current Condition History of Current Condition Onset Date Chronic Current Complaints R>L toe/foot History of Current Condition Cassandra reports great toe and second toe numbness on the right reports it is constant, not dependent on activity . No numbness in left foot. Pain is in both feet, worse on the right, started at least 30 years ago, although pt states they have always been painful. 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 Standing, transfers, walking all increase the pain. She also reports balance issues, but denies any recent falls. Recent carpal tunnel releases bilateral. Denies falls in the last 6 months, but does have frequent near falls, reports recent L leg giving way at times- back issues. Prior Treatments and Tests cervical and lumbar mild stenosis, minimal grade 1 anterolisthesis L4-5, VNG waiting on results. 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 and bunion at 1st met head R>L Treatment Goals Patient/Caregiver Goals Previously walking on treadmill for 5 miles Prior Functional Status Baseline Function- ADL's Modified Independent Baseline Function- Mobility Modified Independent Current Functional Impairments (Reported) Functional Limitations- ADL's Reports more difficulty with walking, although did not provide firm timeline on when exactly walking became more difficult Personal Factors Other Personal Factors That May Effect Migraines, fibromyalgia, Therapy/Recovery depression PT-OP-C Subjective Start: 10/16/20 08:12 Freq: Status: Active Protocol: Document 01/01/21 08:16 AMB (Rec: 01/01/21 08:45 AMB [id number]) OP-PT Subjective Patient Comments Patient Comments Pt reports improved sleep after last appt, but then fell the next day and had increased pain since then. PT-OP-G Mobility & Gait Start: 10/16/20 08:12 Freq: Status: Active Protocol: Document 10/16/20 08:15 AMB (Rec: 10/16/20 14:12 AMB [email or web address]) OP Gait Assessment Comments Gait Comments Pt able to walk short distances over smooth terrain with shoes and superfeet without obviously visible antalgic gait PT-OP-J Posture/Palpation/Skin Start: 10/16/20 08:12 Freq: Status: Active Protocol: Document 10/16/20 08:15 AMB (Rec: 10/16/20 15:32 AMB [id number]) Palpation Assessment Location One Palpation Location R foot Palpation Details Tenderness at achilles tendon, plantar fascia, metatarsals PT-OP-K Range of Motion Start: 10/16/20 08:12 Freq: Status: Active Protocol: Document 10/16/20 08:15 AMB (Rec: 10/16/20 14:12 AMB [email or web address]) Ankle and Foot Goniometric Range of Motion Ankle and Foot Left Passive Dorsiflexion with Knee Extended 5 Right Passive Dorsiflexion with Knee Extended 0 PT-OP-M Strength Start: 10/16/20 08:12 Freq: Status: Active Protocol: Document 10/16/20 08:15 AMB (Rec: 10/16/20 14:12 AMB [email or web address]) Ankle/Foot Strength Ankle and Foot Manual Muscle Testing Right Dorsiflexion (L4) 4 Good Plantarflexion (S1) 4- Good- Inversion 4 Good Eversion (S1) 4 Good Left Dorsiflexion (L4) 4+ Good+ Plantarflexion (S1) 4 Good Inversion 4 Good Eversion (S1) 4 Good Toe Strength Toe Manual Muscle Testing Left Great Toe Flexion 4+ Good+ Extension 4+ Good+ Right Great Toe Flexion 4+ Good+ Extension 4+ Good+ PT-OP-Q Treatments Start: 10/16/20 08:12 Freq: Status: Active Protocol: Document 01/01/21 08:15 AMB (Rec: 01/01/21 09:15 AMB [id number]) Therapeutic Exercises Supine Exercises ankle DF, EV, IV TB Supine Exercise Name hooklying Side bilateral Resistance TB #4 Reps/Minutes 3x5 each Comments supine instead of hooklying for back pain today Sitting Exercises calf roll Sitting Exercise Name or long sitting ( can DF ball foot on 1/2 foam roll) Side bilateral Equipment Used rolling pin Reps/Minutes multiple reps tolerance Comments pressure and reps to tolerance - good feedback results Manual Therapy Treatment Soft Tissue Mobilization manual and self STMs B feet Body Location R plantar fascia distal and proximal, achilles> muscle gastroc/soleus Mobilization Type Cross-Friction,Myofascial Release Intensity/Depth Moderate Body Position Sitting Comments sitting manual>self Joint Mobilizations 1-5 MTP/IP/DIP Joint Bilateral Direction AP, PA Grade I Body Position Sitting Comments gentle ROM w/ instruction on self application with her good carryover demonstration PT-OP-R Modalities Start: 10/16/20 08:12 Freq: Status: Active Protocol: Document 01/01/21 08:15 AMB (Rec: 01/01/21 09:15 AMB [id number]) Ultrasound Therapy Treatment Right Foot Treatment Duration (minutes) 10 Patient Position Sidelying Coupling Medium Ultrasound Gel Frequency Setting (mHz) 1 Intensity Setting (w/cm2) 1.5 PT-OP-T Assessment and Plan Start: 10/16/20 08:12 Freq: Status: Active Protocol: Document 01/01/21 08:15 AMB (Rec: 01/01/21 09:15 AMB [id number]) Physical Therapy Assessment Assessment Summary Assessment Pt reports she has been doing her vestibular HEP and is up to 30sec at a time. Did need review of t band exercises as had been moving knee more than she should. Physical Therapy Plan Next Visit Focus/Plan Next Note Type Treatment Note Next Visit Plan Progress ROM/strengthening of bilateral feet, continue vestibular rehab per pt's tolerance, continue ultrasound per pt preference
--- NOTE | 2021-01-08 16:00 | PT.OTN ---
Current Diagnoses Hallux valgus (acquired), right foot (01/08/21) Hallux valgus (acquired), left foot (01/08/21) Other acquired deformities of right foot (01/08/21) Metatarsalgia, right foot (01/08/21) Dizziness and giddiness (01/08/21) Physical Therapy Treatment Note PT-OP-A Visit Information Start: 10/16/20 08:12 Freq: Status: Active Protocol: Document 01/08/21 08:15 AMB (Rec: 01/08/21 09:01 AMB [id number]) Out-Patient Physical Therapy Visit Information Visit Information Visit Type Treatment Note Visit Start Time 08:15 Visit Stop Time 09:00 Total Visit Minutes 45 Visit Number 13 PT-OP-B Current Condition Start: 10/16/20 08:12 Freq: Status: Active Protocol: Document 10/16/20 08:15 AMB (Rec: 10/16/20 09:04 AMB [id number]) Current Condition History of Current Condition Onset Date Chronic Current Complaints R>L toe/foot History of Current Condition Cassandra reports great toe and second toe numbness on the right reports it is constant, not dependent on activity . No numbness in left foot. Pain is in both feet, worse on the right, started at least 30 years ago, although pt states they have always been painful. Currently wearing modified green superfeet from disability specialist. Standing, transfers, walking all increase the pain. She also reports balance issues, but denies any recent falls. Recent carpal tunnel releases bilateral. Denies falls in the last 6 months, but does have frequent near falls, reports recent L leg giving way at times- back issues. Prior Treatments and Tests cervical and lumbar mild stenosis, minimal grade 1 anterolisthesis L4-5, VNG waiting on results. 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 and bunion at 1st met head R>L Treatment Goals Patient/Caregiver Goals Previously walking on treadmill for 5 miles Prior Functional Status Baseline Function- ADL's Modified Independent Baseline Function- Mobility Modified Independent Current Functional Impairments (Reported) Functional Limitations- ADL's Reports more difficulty with walking, although did not provide firm timeline on when exactly walking became more difficult Personal Factors Other Personal Factors That May Effect Migraines, fibromyalgia, Therapy/Recovery depression PT-OP-C Subjective Start: 10/16/20 08:12 Freq: Status: Active Protocol: Document 01/08/21 08:15 AMB (Rec: 01/08/21 09:01 AMB [id number]) OP-PT Subjective Patient Comments Patient Comments Pt reports she fell over the weekend walking on uneven terrain, wanting to work on vestibular today. PT-OP-G Mobility & Gait Start: 10/16/20 08:12 Freq: Status: Active Protocol: Document 10/16/20 08:15 AMB (Rec: 10/16/20 14:12 AMB [email or web address]) OP Gait Assessment Comments Gait Comments Pt able to walk short distances over smooth terrain with shoes and superfeet without obviously visible antalgic gait PT-OP-J Posture/Palpation/Skin Start: 10/16/20 08:12 Freq: Status: Active Protocol: Document 10/16/20 08:15 AMB (Rec: 10/16/20 15:32 AMB [id number]) Palpation Assessment Location One Palpation Location R foot Palpation Details Tenderness at achilles tendon, plantar fascia, metatarsals PT-OP-K Range of Motion Start: 10/16/20 08:12 Freq: Status: Active Protocol: Document 10/16/20 08:15 AMB (Rec: 10/16/20 14:12 AMB [email or web address]) Ankle and Foot Goniometric Range of Motion Ankle and Foot Left Passive Dorsiflexion with Knee Extended 5 Right Passive Dorsiflexion with Knee Extended 0 PT-OP-M Strength Start: 10/16/20 08:12 Freq: Status: Active Protocol: Document 10/16/20 08:15 AMB (Rec: 10/16/20 14:12 AMB [email or web address]) Ankle/Foot Strength Ankle and Foot Manual Muscle Testing Right Dorsiflexion (L4) 4 Good Plantarflexion (S1) 4- Good- Inversion 4 Good Eversion (S1) 4 Good Left Dorsiflexion (L4) 4+ Good+ Plantarflexion (S1) 4 Good Inversion 4 Good Eversion (S1) 4 Good Toe Strength Toe Manual Muscle Testing Left Great Toe Flexion 4+ Good+ Extension 4+ Good+ Right Great Toe Flexion 4+ Good+ Extension 4+ Good+ PT-OP-Q Treatments Start: 10/16/20 08:12 Freq: Status: Active Protocol: Document 01/08/21 08:15 AMB (Rec: 01/08/21 16:00 AMB [email or web address]) Neuro Re-Education Treatment Vestibular Rehabilitation Other- 1 Details Denny string Background complex (clinic) Distance From Target arm length Reps/Duration 3 min VOR Retraining Background simple Distance From Target 10' Speed slow Comments on wobble board a/p and m/l Other Activities 1 Details walking in hallway Comments horizontal and vertical PT-OP-R Modalities Start: 10/16/20 08:12 Freq: Status: Active Protocol: Document 01/01/21 08:15 AMB (Rec: 01/01/21 09:15 AMB [id number]) Ultrasound Therapy Treatment Right Foot Treatment Duration (minutes) 10 Patient Position Sidelying Coupling Medium Ultrasound Gel Frequency Setting (mHz) 1 Intensity Setting (w/cm2) 1.5 PT-OP-T Assessment and Plan Start: 10/16/20 08:12 Freq: Status: Active Protocol: Document 01/08/21 08:15 AMB (Rec: 01/08/21 16:00 AMB [email or web address]) Physical Therapy Assessment Assessment Summary Assessment Pt continues to have difficulty with VOR exercise especially when close up. Pt did have increase tension in R scapular muscles after wobble board. Physical Therapy Plan Next Visit Focus/Plan Next Note Type Treatment Note Next Visit Plan Progress ROM/strengthening of bilateral feet, continue vestibular rehab per pt's tolerance, continue ultrasound per pt preference
--- NOTE | 2021-01-15 11:57 | PT.OTN ---
Current Diagnoses Hallux valgus (acquired), right foot (01/15/21) Hallux valgus (acquired), left foot (01/15/21) Other acquired deformities of right foot (01/15/21) Metatarsalgia, right foot (01/15/21) Dizziness and giddiness (01/15/21) Physical Therapy Treatment Note PT-OP-A Visit Information Start: 10/16/20 08:12 Freq: Status: Active Protocol: Document 01/15/21 08:59 AMB (Rec: 01/15/21 09:02 AMB [id number]) Out-Patient Physical Therapy Visit Information Visit Information Visit Type Treatment Note Visit Start Time 08:15 Visit Stop Time 09:00 Total Visit Minutes 45 Visit Number 14 PT-OP-B Current Condition Start: 10/16/20 08:12 Freq: Status: Active Protocol: Document 10/16/20 08:15 AMB (Rec: 10/16/20 09:04 AMB [id number]) Current Condition History of Current Condition Onset Date Chronic Current Complaints R>L toe/foot History of Current Condition Cassandra reports great toe and second toe numbness on the right reports it is constant, not dependent on activity . No numbness in left foot. Pain is in both feet, worse on the right, started at least 30 years ago, although pt states they have always been painful. Currently wearing modified green superfeet from milk of lime slaker. Standing, transfers, walking all increase the pain. She also reports balance issues, but denies any recent falls. Recent carpal tunnel releases bilateral. Denies falls in the last 6 months, but does have frequent near falls, reports recent L leg giving way at times- back issues. Prior Treatments and Tests cervical and lumbar mild stenosis, minimal grade 1 anterolisthesis L4-5, VNG waiting on results. 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 and bunion at 1st met head R>L Treatment Goals Patient/Caregiver Goals Previously walking on treadmill for 5 miles Prior Functional Status Baseline Function- ADL's Modified Independent Baseline Function- Mobility Modified Independent Current Functional Impairments (Reported) Functional Limitations- ADL's Reports more difficulty with walking, although did not provide firm timeline on when exactly walking became more difficult Personal Factors Other Personal Factors That May Effect Migraines, fibromyalgia, Therapy/Recovery depression PT-OP-C Subjective Start: 10/16/20 08:12 Freq: Status: Active Protocol: Document 01/15/21 08:59 AMB (Rec: 01/15/21 09:02 AMB [id number]) OP-PT Subjective Patient Comments Patient Comments Pt reports she had signficnant symptoms after doing vestibular rehab last visit. PT-OP-G Mobility & Gait Start: 10/16/20 08:12 Freq: Status: Active Protocol: Document 10/16/20 08:15 AMB (Rec: 10/16/20 14:12 AMB [email or web address]) OP Gait Assessment Comments Gait Comments Pt able to walk short distances over smooth terrain with shoes and superfeet without obviously visible antalgic gait PT-OP-J Posture/Palpation/Skin Start: 10/16/20 08:12 Freq: Status: Active Protocol: Document 10/16/20 08:15 AMB (Rec: 10/16/20 15:32 AMB [id number]) Palpation Assessment Location One Palpation Location R foot Palpation Details Tenderness at achilles tendon, plantar fascia, metatarsals PT-OP-K Range of Motion Start: 10/16/20 08:12 Freq: Status: Active Protocol: Document 10/16/20 08:15 AMB (Rec: 10/16/20 14:12 AMB [email or web address]) Ankle and Foot Goniometric Range of Motion Ankle and Foot Left Passive Dorsiflexion with Knee Extended 5 Right Passive Dorsiflexion with Knee Extended 0 PT-OP-M Strength Start: 10/16/20 08:12 Freq: Status: Active Protocol: Document 10/16/20 08:15 AMB (Rec: 10/16/20 14:12 AMB [email or web address]) Ankle/Foot Strength Ankle and Foot Manual Muscle Testing Right Dorsiflexion (L4) 4 Good Plantarflexion (S1) 4- Good- Inversion 4 Good Eversion (S1) 4 Good Left Dorsiflexion (L4) 4+ Good+ Plantarflexion (S1) 4 Good Inversion 4 Good Eversion (S1) 4 Good Toe Strength Toe Manual Muscle Testing Left Great Toe Flexion 4+ Good+ Extension 4+ Good+ Right Great Toe Flexion 4+ Good+ Extension 4+ Good+ PT-OP-Q Treatments Start: 10/16/20 08:12 Freq: Status: Active Protocol: Document 01/15/21 08:15 AMB (Rec: 01/15/21 11:55 AMB [email or web address]) Manual Therapy Treatment Soft Tissue Mobilization manual and self STMs B feet Body Location L plantar fascia distal and proximal, achilles> muscle gastroc/soleus Mobilization Type Cross-Friction,Myofascial Release Intensity/Depth Moderate Body Position Sitting Comments sitting manual>self Joint Mobilizations 1-5 MTP/IP/DIP Joint Bilateral Direction AP, PA Grade I Body Position Sitting Comments gentle ROM w/ instruction on self application with her good carryover demonstration PT-OP-R Modalities Start: 10/16/20 08:12 Freq: Status: Active Protocol: Document 01/15/21 08:15 AMB (Rec: 01/15/21 11:57 AMB [email or web address]) Ultrasound Therapy Treatment Right Foot Treatment Duration (minutes) 10 Patient Position Sidelying Coupling Medium Ultrasound Gel Frequency Setting (mHz) 1 Intensity Setting (w/cm2) 1.5 Comments bilateral feet PT-OP-T Assessment and Plan Start: 10/16/20 08:12 Freq: Status: Active Protocol: Document 01/15/21 08:15 AMB (Rec: 01/15/21 11:55 AMB [email or web address]) Physical Therapy Assessment Assessment Summary Assessment Cassandra continues to have midback pain that limits her function but is not what she was sent to physical therapy for. The vestibular therapy per her report really challenged her and she did attend with migraine today, although it is a changing day in the weather and that has historically been problematic. Follow up in a few weeks after upcoming botox shot. Physical Therapy Plan Next Visit Focus/Plan Next Note Type Discharge Summary Next Visit Plan Next visit will have to be our last due to insurance limitations
--- NOTE | 2021-02-16 09:01 | PT.OTN ---
Current Diagnoses Hallux valgus (acquired), right foot (02/16/21) Hallux valgus (acquired), left foot (02/16/21) Other acquired deformities of right foot (02/16/21) Metatarsalgia, right foot (02/16/21) Dizziness and giddiness (02/16/21) Physical Therapy Treatment Note PT-OP-A Visit Information Start: 10/16/20 08:12 Freq: Status: Active Protocol: Document 02/16/21 08:15 AMB (Rec: 02/16/21 08:52 AMB [id number]) Out-Patient Physical Therapy Visit Information Visit Information Visit Type Treatment Note Visit Start Time 08:15 Visit Stop Time 09:00 Total Visit Minutes 45 Visit Number 15 PT-OP-B Current Condition Start: 10/16/20 08:12 Freq: Status: Active Protocol: Document 10/16/20 08:15 AMB (Rec: 10/16/20 09:04 AMB [id number]) Current Condition History of Current Condition Onset Date Chronic Current Complaints R>L toe/foot History of Current Condition Cassandra reports great toe and second toe numbness on the right reports it is constant, not dependent on activity . No numbness in left foot. Pain is in both feet, worse on the right, started at least 30 years ago, although pt states they have always been painful. 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 Standing, transfers, walking all increase the pain. She also reports balance issues, but denies any recent falls. Recent carpal tunnel releases bilateral. Denies falls in the last 6 months, but does have frequent near falls, reports recent L leg giving way at times- back issues. Prior Treatments and Tests cervical and lumbar mild stenosis, minimal grade 1 anterolisthesis L4-5, VNG waiting on results. 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 and bunion at 1st met head R>L Treatment Goals Patient/Caregiver Goals Previously walking on treadmill for 5 miles Prior Functional Status Baseline Function- ADL's Modified Independent Baseline Function- Mobility Modified Independent Current Functional Impairments (Reported) Functional Limitations- ADL's Reports more difficulty with walking, although did not provide firm timeline on when exactly walking became more difficult Personal Factors Other Personal Factors That May Effect Migraines, fibromyalgia, Therapy/Recovery depression PT-OP-C Subjective Start: 10/16/20 08:12 Freq: Status: Active Protocol: Document 02/16/21 08:15 AMB (Rec: 02/16/21 08:52 AMB [id number]) OP-PT Subjective Patient Comments Patient Comments Pt reports new onset L knee pain. Pt had an injection in R foot a couple weeks ago. Pt feels like dizziness is a bit better now that the feet are better, but does report recent falls. PT-OP-G Mobility & Gait Start: 10/16/20 08:12 Freq: Status: Active Protocol: Document 10/16/20 08:15 AMB (Rec: 10/16/20 14:12 AMB [email or web address]) OP Gait Assessment Comments Gait Comments Pt able to walk short distances over smooth terrain with shoes and superfeet without obviously visible antalgic gait PT-OP-J Posture/Palpation/Skin Start: 10/16/20 08:12 Freq: Status: Active Protocol: Document 10/16/20 08:15 AMB (Rec: 10/16/20 15:32 AMB [id number]) Palpation Assessment Location One Palpation Location R foot Palpation Details Tenderness at achilles tendon, plantar fascia, metatarsals PT-OP-K Range of Motion Start: 10/16/20 08:12 Freq: Status: Active Protocol: Document 10/16/20 08:15 AMB (Rec: 10/16/20 14:12 AMB [email or web address]) Ankle and Foot Goniometric Range of Motion Ankle and Foot Left Passive Dorsiflexion with Knee Extended 5 Right Passive Dorsiflexion with Knee Extended 0 PT-OP-M Strength Start: 10/16/20 08:12 Freq: Status: Active Protocol: Document 10/16/20 08:15 AMB (Rec: 10/16/20 14:12 AMB [id number]) Ankle/Foot Strength Ankle and Foot Manual Muscle Testing Right Dorsiflexion (L4) 4 Good Plantarflexion (S1) 4- Good- Inversion 4 Good Eversion (S1) 4 Good Left Dorsiflexion (L4) 4+ Good+ Plantarflexion (S1) 4 Good Inversion 4 Good Eversion (S1) 4 Good Toe Strength Toe Manual Muscle Testing Left Great Toe Flexion 4+ Good+ Extension 4+ Good+ Right Great Toe Flexion 4+ Good+ Extension 4+ Good+ PT-OP-Q Treatments Start: 10/16/20 08:12 Freq: Status: Active Protocol: Document 02/16/21 08:15 AMB (Rec: 02/16/21 08:52 AMB [id number]) Neuro Re-Education Treatment Vestibular Rehabilitation X2 Viewing Comments Pt feels very spinny Other- 1 Details Denny string Background complex (clinic) Distance From Target arm length Reps/Duration 3 min VOR Retraining Background simple Distance From Target 10' Speed slow Comments on wobble board a/p and m/l Other Activities 1 Details walking in hallway Comments horizontal and vertical PT-OP-R Modalities Start: 10/16/20 08:12 Freq: Status: Active Protocol: Document 01/15/21 08:15 AMB (Rec: 01/15/21 11:57 AMB [email or web address]) Ultrasound Therapy Treatment Right Foot Treatment Duration (minutes) 10 Patient Position Sidelying Coupling Medium Ultrasound Gel Frequency Setting (mHz) 1 Intensity Setting (w/cm2) 1.5 Comments bilateral feet PT-OP-T Assessment and Plan Start: 10/16/20 08:12 Freq: Status: Active Protocol: Document 02/16/21 08:15 AMB (Rec: 02/16/21 08:52 AMB [id number]) Physical Therapy Assessment Goals Five Impairment Dizziness Short Term Goal (STG) Cassandra will turn her head right and left slowly without dizziness. STG Duration NOT MET Support Architect Goal (LTG) Cassandra will turn her head up and down slowly without dizziness. LTG Duration NOT MET Four Impairment Range of motion Short Term Goal (STG) Cassandra will improve her ankle dorsiflexion to 10 degrees bilaterally. STG Duration PROGRESS MADE Three Impairment Strength Short Term Goal (STG) Cassandra will perform 5 double leg heel lifts without an increase in baseline pain. STG Duration MET Two Impairment HEP Fci Goal (LTG) Cassandra will be independent and consistent with a HEP for her feet that takes into account her other comorbidities. LTG Duration MET One Impairment Activity tolerance Short Term Goal (STG) Cassandra will walk over smooth surfaces for 6 minutes with 5/ 10 pain or less. STG Duration MET Fci Goal (LTG) Cassandra will walk over uneven terrain for 10 minutes without an increase in her baseline pain. LTG Duration MET Assessment Summary Assessment Overall Cassandra feels like her feet are a lot better but continues to have chronic pain in other body parts that limit her function. Did have 2 falls recently. Physical Therapy Plan Frequency and Duration Frequency of Treatment 1x/Week Duration of Treatment 2 weeks Plan of Care Start Date 02/06/21 Plan of Care End Date 02/20/21 Therapeutic Interventions Therapeutic Interventions Gait Training,Home Exercise Program,Joint Mobilizations, Manual Therapy,Neuromuscular Re-education,Self-Care/Home Management,Therapeutic Activities,Therapeutic Exercises Modalities Electric Stimulation, Ultrasound Discharge Physical Therapy Discharge Comments Insurance limits
--- NOTE | 2021-02-16 09:01 | PT.OPPOC ---
Physical, Occupational & Speech Therapy At [facility] Current Diagnoses Hallux valgus (acquired), right foot (02/16/21) Hallux valgus (acquired), left foot (02/16/21) Other acquired deformities of right foot (02/16/21) Metatarsalgia, right foot (02/16/21) Dizziness and giddiness (02/16/21) Visit Care Team Role Provider Type Jacob Hampton MD Primary Care Provider Non-Staff Specialty: [facility] Address: [address] [place], [place] [address], [address], [place], [address] Email: Choco Kaur DPM Attending Provider Non-Staff Referring Provider Specialty: Podiatry Address: [address] [place] [address], [id number] Email: Plan Of Care PT-OP-T Assessment and Plan Start: 10/16/20 08:12 Freq: Status: Active Protocol: Document 02/16/21 08:15 AMB (Rec: 02/16/21 08:52 AMB [id number]) Physical Therapy Assessment Goals Five Impairment Dizziness Short Term Goal (STG) Cassandra will turn her head right and left slowly without dizziness. STG Duration NOT MET Solo Truck Driver Goal (LTG) Cassandra will turn her head up and down slowly without dizziness. LTG Duration NOT MET Four Impairment Range of motion Short Term Goal (STG) Cassandra will improve her ankle dorsiflexion to 10 degrees bilaterally. STG Duration PROGRESS MADE Three Impairment Strength Short Term Goal (STG) Cassandra will perform 5 double leg heel lifts without an increase in baseline pain. STG Duration MET Two Impairment HEP Solo Truck Driver Goal (LTG) Cassandra will be independent and consistent with a HEP for her feet that takes into account her other comorbidities. LTG Duration MET One Impairment Activity tolerance Short Term Goal (STG) Cassandra will walk over smooth surfaces for 6 minutes with 5/ 10 pain or less. STG Duration MET Detention Goal (LTG) Cassandra will walk over uneven terrain for 10 minutes without an increase in her baseline pain. LTG Duration MET Assessment Summary Assessment Overall Cassandra feels like her feet are a lot better but continues to have chronic pain in other body parts that limit her function. Did have 2 falls recently. Physical Therapy Plan Frequency and Duration Frequency of Treatment 1x/Week Duration of Treatment 2 weeks Plan of Care Start Date 02/06/21 Plan of Care End Date 02/20/21 Therapeutic Interventions Therapeutic Interventions Gait Training,Home Exercise Program,Joint Mobilizations, Manual Therapy,Neuromuscular Re-education,Self-Care/Home Management,Therapeutic Activities,Therapeutic Exercises Modalities Electric Stimulation, Ultrasound Discharge Physical Therapy Discharge Comments Insurance limits Plan of Care Dates Plan of Care Start Date 02/06/21 Plan of Care End Date 02/20/21 Electronically Signed by: Tiara Kumar, PT 02/16/21 0901 Please Sign and Return: I have reviewed this Plan of Care and certify that the skilled therapy services above are required to meet the patient?s needs. Physician Signature Date Printed Name and Credentials Clinical Instructor Signature Printed Name and Credentials
== END 2021-02-19 08:53 | disposition home or self-care (01) ==
LOC: PHYS 08:15
PROVIDERS: PCP Family Medicine; Referring Provider Podiatrist Foot & Ankle Surgery; Visit Provider Podiatrist Foot & Ankle Surgery
DX: M77.41 Metatarsalgia, right foot (principal); M21.6X1 Other acquired deformities of right foot; M20.11 Hallux valgus (acquired), right foot; M20.12 Hallux valgus (acquired), left foot; R42 Dizziness and giddiness
CPT/HCPCS: 97035; 97110; 97112; 97140; 97162; 97535

== ENCOUNTER → 2021-06-27 11:05 | Outpatient (CLI) | payer OTHER, MEDICAID, SELFPAY ==
[2021-06-27 12:55] LABS: Vitamin B12 377 pg/mL (239-931)
[2021-06-29 15:12] LABS: Immunoglobulin A, Serum 171 mg/dL (87-352); Immunoglobulin G,Serum 1181 mg/dL (586-1602); Immunoglobulin M, Serum 84 mg/dL (26-217)
[2021-06-29 15:36] LABS: Albumin 3.9 g/dL (2.9-4.4); Alpha-1-Globulin 0.2 g/dL (0.0-0.4); Alpha-2-Globulin 0.7 g/dL (0.4-1.0); Gamma Globulin 1.5 g/dL (0.4-1.8); Globulin Total 3.5 g/dL (2.2-3.9); Protein, Total 7.4 g/dL (6.0-8.5)
[2021-06-30 12:30] LABS: Alpha-Tocopherol 12.4 mg/L (7.0-25.1); Gamma-Tocopherol 1.5 mg/L (0.5-5.5)
[2021-06-30 16:57] LABS: ANA Screen, IFA Negative (.)
[2021-07-06 18:04] LABS: Vitamin B6 10.2 ug/L (2.0-32.8)
== END ==
PROVIDERS: PCP Family Medicine; Referring Provider Internal Medicine; Visit Provider Internal Medicine
DX: R20.2 Paresthesia of skin (principal); E53.8 Deficiency of other specified B group vitamins
CPT/HCPCS: 36415; 82525; 82607; 82784; 84155; 84165; 84207; 84446; 86038; 86334

== ENCOUNTER → 2021-09-28 10:13 | Outpatient (CLI) | payer OTHER, MEDICAID, SELFPAY ==
--- NOTE | 2021-09-28 10:15 | DI.RAD.S_ITS ---
PROCEDURE: XR HAND LT MIN 3V INDICATIONS: bilateral shoulder and hand pain TECHNIQUE: 3 views of the hand(s) acquired. COMPARISON: None. FINDINGS: Bones: No fractures or dislocations. Carpal bones are normally aligned. No suspicious bony lesions. Minimal degenerative changes of the left thumb metacarpophalangeal joint. Soft tissues: No suspicious soft tissue calcifications. IMPRESSION: Left hand without acute fracture or dislocation. Minimal degenerative changes of the left thumb metacarpophalangeal joint. Dictated by: Enoch Caballero M.D. on 09/28/2021 at 12:29 Approved by: Enoch Caballero M.D. on 09/28/2021 at 12:30
--- NOTE | 2021-09-28 10:15 | DI.RAD.S_ITS ---
PROCEDURE: XR HAND RT MIN 3V INDICATIONS: bilateral shoulder and hand pain TECHNIQUE: 3 views of the hand(s) acquired. COMPARISON: None. FINDINGS: Bones: No fractures or dislocations. Carpal bones are normally aligned. No suspicious bony lesions. There are mild degenerative changes of the right thumb metacarpophalangeal joint as well as the distal radiocarpal joint. Soft tissues: No suspicious soft tissue calcifications. IMPRESSION: Right hand without acute fracture or dislocation. Degenerative changes of the right thumb metacarpophalangeal joint and right wrist. Dictated by: Enoch Caballero M.D. on 09/28/2021 at 12:13 Approved by: Enoch Caballero M.D. on 09/28/2021 at 12:29
--- NOTE | 2021-09-28 10:15 | DI.RAD.S_ITS ---
PROCEDURE: XR SHOULDER LT MIN 2V INDICATIONS: bilateral shoulder and hand pain TECHNIQUE: 3 views of the shoulder were acquired. COMPARISON: None. FINDINGS: Bones: No acute fractures or dislocations. No suspicious bony lesions. Visualized ribs appear intact. Mild-moderate degenerative changes of the left acromioclavicular joint. Soft tissues: No suspicious soft tissue calcifications. IMPRESSION: Left shoulder without acute fracture or dislocation. Mild-moderate left acromioclavicular osteoarthrosis. Dictated by: Enoch Caballero M.D. on 09/28/2021 at 11:52 Approved by: Enoch Caballero M.D. on 09/28/2021 at 11:53
--- NOTE | 2021-09-28 10:15 | DI.RAD.S_ITS ---
PROCEDURE: XR SHOULDER RT MIN 2V INDICATIONS: bilateral shoulder and hand pain TECHNIQUE: 3 views of the shoulder were acquired. COMPARISON: None. FINDINGS: Bones: No acute fractures or dislocations. No suspicious bony lesions. Visualized ribs appear intact. Mild degenerative changes of the right acromioclavicular joint Soft tissues: No suspicious soft tissue calcifications. IMPRESSION: Right shoulder without acute fracture or dislocation. Mild right acromioclavicular osteoarthrosis. Dictated by: Enoch Caballero M.D. on 09/28/2021 at 11:51 Approved by: Enoch Caballero M.D. on 09/28/2021 at 11:52
== END ==
PROVIDERS: PCP Family Medicine; Referring Provider Family Medicine; Visit Provider Family Medicine
DX: M19.011 Primary osteoarthritis, right shoulder (principal); M19.012 Primary osteoarthritis, left shoulder; M25.511 Pain in right shoulder; M25.512 Pain in left shoulder; M79.641 Pain in right hand; M79.642 Pain in left hand
CPT/HCPCS: 73030; 73130

== ENCOUNTER → 2021-11-15 12:29 | Outpatient (CLI) | payer OTHER, MEDICAID, SELFPAY ==
[2021-11-15 14:41] LABS: Vitamin B12 369 pg/mL (239-931)
== END ==
PROVIDERS: PCP Family Medicine; Referring Provider Family Medicine; Visit Provider Family Medicine
DX: E53.8 Deficiency of other specified B group vitamins (principal)
CPT/HCPCS: 36415; 82607

== ENCOUNTER → 2022-03-25 09:49 | Outpatient (CLI) | payer OTHER, MEDICAID, SELFPAY ==
[2022-03-25 10:24] LABS: COVID19 -Nasal RAPID POSITIVE (Negative)
== END ==
PROVIDERS: PCP Family Medicine; Visit Provider Nurse Practitioner Family
DX: U07.1 COVID-19 (principal)
CPT/HCPCS: 87635

== ENCOUNTER 2022-05-28 13:00 | Outpatient (RCR) | payer OTHER, MEDICAID, SELFPAY ==
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
--- NOTE | 2022-02-21 16:25 | PT.OPPOC ---
Physical, Occupational & Speech Therapy At [facility] Current Diagnoses Lesion of plantar nerve, bilateral lower limbs (02/21/22) Achilles tendinitis, right leg (02/21/22) Pain in right foot (02/21/22) Pain in left foot (02/21/22) Visit Care Team Role Provider Type Miguel Angel Thomas MD Attending Provider Physician Primary Care Provider Referring Provider Specialty: Family Practice Address: [address] [place] [address], [facility] Email: [email or web address] Plan Of Care PT-OP-T Assessment and Plan Start: 02/06/22 13:40 Freq: Status: Active Protocol: Document 02/21/22 09:45 AMB (Rec: 02/26/22 16:23 AMB [id number]) Physical Therapy Assessment Rehab Potential Rehabilitation Potential Good Evaluation Complexity Number of Personal Factors/Comorbidities 1-2 Number of Body Systems Impaired 4 or More Clinical Presentation at Evaluation Stable Impairments Impairments Balance,Functional Activities, Gait,Pain,ROM,Strength Goals Three Impairment Strength Short Term Goal (STG) Cassandra will improve her ankle strength to 4+/5 in all planes bilaterally. STG Duration 4 weeks Inspector Fuel Hose Goal (LTG) Cassandra will be independent with a HEP. LTG Duration 8 weeks Two Impairment ROM Short Term Goal (STG) Cassandra will improve her dorsiflexion to 15 degrees. STG Duration 4 weeks One Impairment Pain Short Term Goal (STG) Cassandra will walk for 5 minutes with shoes on wtih 4/10 foot pain or less. STG Duration 4 weeks Assessment Summary Assessment Cassandra returns to physical therapy stating she has had a worsening in symptoms since she completed her last round of PT last year R>L foot pain. She is having difficulty with her previous HEP as her feet have become weaker. She is using custom orthotics and reports pain with walking barefoot as well as intermittent sharp foot pain. Encouraged pt to stop walking barefoot, and to work on continuing to stretch and strengthen feet as she is considering future foot surgery. Physical Therapy Plan Frequency and Duration Frequency of Treatment 1x/Week Duration of Treatment 8 weeks Plan of Care Start Date 02/21/22 Plan of Care End Date 04/18/22 Therapeutic Interventions Therapeutic Interventions Balance Training,Gait Training ,Home Exercise Program,Joint Mobilizations,Manual Therapy, Neuromuscular Re-education, Therapeutic Activities, Therapeutic Exercises Modalities Cold Pack/Ice Massage,Electric Stimulation,Hot Packs, Ultrasound Next Visit Focus/Plan Next Note Type Treatment Note Next Visit Plan ultrasound per pt request, foot intrinsic strengthening Plan of Care Dates Plan of Care Start Date 02/21/22 Plan of Care End Date 04/18/22 Electronically Signed by: Tiara Kumar, PT 02/26/22 6031 If you are in agreement with this Plan of Care, please return a signed and dated copy. I have reviewed this Plan of Care and certify that the skilled therapy services above are required to meet the patient?s needs. Physician Signature Date Printed Name and Credentials Clinical Instructor Signature Printed Name and Credentials
--- NOTE | 2022-02-28 12:49 | PT.OTN ---
Current Diagnoses Lesion of plantar nerve, bilateral lower limbs (02/28/22) Achilles tendinitis, right leg (02/28/22) Pain in right foot (02/28/22) Pain in left foot (02/28/22) Physical Therapy Treatment Note PT-OP-A Visit Information Start: 02/06/22 13:40 Freq: Status: Active Protocol: Document 02/28/22 09:47 AMB (Rec: 02/28/22 10:33 AMB [id number]) Out-Patient Physical Therapy Visit Information Visit Information Visit Type Treatment Note Visit Start Time 09:45 Visit Stop Time 10:30 Total Visit Minutes 45 Visit Number 2 PT-OP-B Current Condition Start: 02/06/22 13:40 Freq: Status: Active Protocol: Document 02/21/22 09:39 AMB (Rec: 02/21/22 10:15 AMB [id number]) Current Condition History of Current Condition Onset Date chronic Current Complaints R>L foot pain. History of Current Condition Difficulty with walking more than 2 miles, difficulty with uneven terrain, difficulty in the morning with muscle spasms . Has been getting steroid injections. Does wear orthotics. Difficulty walking barefoot. Does report R sided swelling in the foot and the knee. Considering foot surgery, not really sure what they would do. Sudden sharp foot pain at times, but otherwise pain in the morning. Personal Factors Other Personal Factors That May Effect Depression, fibromyalgia, neck Therapy/Recovery pain, neuropathy, back pain PT-OP-C Subjective Start: 02/06/22 13:40 Freq: Status: Active Protocol: Document 02/28/22 09:47 AMB (Rec: 02/28/22 10:33 AMB [id number]) OP-PT Subjective Patient Comments Patient Comments Pt is reporting increased pain this morning. PT-OP-F Manual Assessment Start: 02/06/22 13:40 Freq: Status: Active Protocol: Document 02/21/22 09:45 AMB (Rec: 02/26/22 16:12 AMB [id number]) Manual Assessments Soft Tissue Assessment Soft Tissue Mobility Assessment Pain/tightness with foot intrinsics Joint Mobility Assessment Joint Mobility Assessment Tightness in great toe extension PT-OP-K Range of Motion Start: 02/06/22 13:40 Freq: Status: Active Protocol: Document 02/21/22 09:45 AMB (Rec: 07/05/22 16:12 AMB [id number]) Ankle and Foot Goniometric Range of Motion Ankle and Foot Right Passive Dorsiflexion with Knee Extended 10 Left Passive Dorsiflexion with Knee Extended 10 PT-OP-M Strength Start: 02/06/22 13:40 Freq: Status: Active Protocol: Document 02/21/22 09:45 AMB (Rec: 02/26/22 16:12 AMB [id number]) Ankle/Foot Strength Ankle and Foot Manual Muscle Testing Right Dorsiflexion (L4) 4 Good Plantarflexion (S1) 4 Good Inversion 4- Good- Eversion (S1) 4- Good- Left Dorsiflexion (L4) 4 Good Plantarflexion (S1) 4 Good Inversion 4- Good- Eversion (S1) 4- Good- PT-OP-Q Treatments Start: 02/06/22 13:40 Freq: Status: Active Protocol: Document 02/28/22 09:47 AMB (Rec: 02/28/22 10:33 AMB [id number]) Therapeutic Exercises Supine Exercises toe flexion/ankle inversion Resistance AROM Reps/Minutes 10 Manual Therapy Treatment Soft Tissue Mobilization achilles/plantar fasciaa Mobilization Type Cross-Friction,Myofascial Release,Strumming Joint Mobilizations 1 Joint toes Comments AP/PA PT-OP-R Modalities Start: 02/06/22 13:40 Freq: Status: Active Protocol: Document 02/28/22 09:45 AMB (Rec: 02/28/22 11:18 AMB [id number]) Ultrasound Therapy Treatment Right Foot Treatment Duration (minutes) 8 Patient Position Supine Frequency Setting (mHz) 1 Intensity Setting (w/cm2) 1.5 PT-OP-T Assessment and Plan Start: 02/06/22 13:40 Freq: Status: Active Protocol: Document 02/28/22 09:47 AMB (Rec: 02/28/22 10:33 AMB [id number]) Physical Therapy Assessment Goals Three Impairment Strength Short Term Goal (STG) Cassandra will improve her ankle strength to 4+/5 in all planes bilaterally. STG Duration 4 weeks Solid Waste Disposal Manager Goal (LTG) Cassandra will be independent with a HEP. LTG Duration 8 weeks Two Impairment ROM Short Term Goal (STG) Cassandra will improve her dorsiflexion to 15 degrees. STG Duration 4 weeks One Impairment Pain Short Term Goal (STG) Cassandra will walk for 5 minutes with shoes on wtih 4/10 foot pain or less. STG Duration 4 weeks Assessment Summary Assessment Cassandra did have soreness immediately after PT, but felt increased mobility. Will want to continue to work on mobility and improve stability as tolerated. Physical Therapy Plan Next Visit Focus/Plan Next Note Type Treatment Note Next Visit Plan ultrasound per pt request, foot intrinsic strengthening
--- NOTE | 2022-03-21 12:43 | PT.OTN ---
Current Diagnoses Lesion of plantar nerve, bilateral lower limbs (03/21/22) Achilles tendinitis, right leg (03/21/22) Pain in right foot (03/21/22) Pain in left foot (03/21/22) Physical Therapy Treatment Note PT-OP-A Visit Information Start: 02/06/22 13:40 Freq: Status: Active Protocol: Document 03/21/22 09:50 AMB (Rec: 03/21/22 10:35 AMB [id number]) Out-Patient Physical Therapy Visit Information Visit Information Visit Type Treatment Note Visit Start Time 09:50 Visit Stop Time 10:30 Total Visit Minutes 40 Visit Number 3 PT-OP-B Current Condition Start: 02/06/22 13:40 Freq: Status: Active Protocol: Document 02/21/22 09:39 AMB (Rec: 02/21/22 10:15 AMB [id number]) Current Condition History of Current Condition Onset Date chronic Current Complaints R>L foot pain. History of Current Condition Difficulty with walking more than 2 miles, difficulty with uneven terrain, difficulty in the morning with muscle spasms . Has been getting steroid injections. Does wear orthotics. Difficulty walking barefoot. Does report R sided swelling in the foot and the knee. Considering foot surgery, not really sure what they would do. Sudden sharp foot pain at times, but otherwise pain in the morning. Personal Factors Other Personal Factors That May Effect Depression, fibromyalgia, neck Therapy/Recovery pain, neuropathy, back pain PT-OP-C Subjective Start: 02/06/22 13:40 Freq: Status: Active Protocol: Document 03/21/22 09:50 AMB (Rec: 03/21/22 10:35 AMB [id number]) OP-PT Subjective Patient Comments Patient Comments Pt is tearful considering bunion surgery. PT-OP-F Manual Assessment Start: 02/06/22 13:40 Freq: Status: Active Protocol: Document 02/21/22 09:45 AMB (Rec: 02/26/22 16:12 AMB [id number]) Manual Assessments Soft Tissue Assessment Soft Tissue Mobility Assessment Pain/tightness with foot intrinsics Joint Mobility Assessment Joint Mobility Assessment Tightness in great toe extension PT-OP-K Range of Motion Start: 02/06/22 13:40 Freq: Status: Active Protocol: Document 02/21/22 09:45 AMB (Rec: 02/26/22 16:12 AMB [id number]) Ankle and Foot Goniometric Range of Motion Ankle and Foot Right Passive Dorsiflexion with Knee Extended 10 Left Passive Dorsiflexion with Knee Extended 10 PT-OP-M Strength Start: 02/06/22 13:40 Freq: Status: Active Protocol: Document 02/21/22 09:45 AMB (Rec: 02/26/22 16:12 AMB [id number]) Ankle/Foot Strength Ankle and Foot Manual Muscle Testing Right Dorsiflexion (L4) 4 Good Plantarflexion (S1) 4 Good Inversion 4- Good- Eversion (S1) 4- Good- Left Dorsiflexion (L4) 4 Good Plantarflexion (S1) 4 Good Inversion 4- Good- Eversion (S1) 4- Good- PT-OP-Q Treatments Start: 02/06/22 13:40 Freq: Status: Active Protocol: Document 03/21/22 09:45 AMB (Rec: 03/21/22 12:43 AMB [id number]) Manual Therapy Treatment Soft Tissue Mobilization achilles/plantar fasciaa Body Location Right foot Mobilization Type Cross-Friction,Myofascial Release,Strumming Joint Mobilizations 1 Joint toes Comments AP/PA PT-OP-R Modalities Start: 02/06/22 13:40 Freq: Status: Active Protocol: Document 03/21/22 09:45 AMB (Rec: 03/21/22 12:43 AMB [id number]) Ultrasound Therapy Treatment Right Foot Treatment Duration (minutes) 8 Patient Position Supine Frequency Setting (mHz) 1 Intensity Setting (w/cm2) 1.5 Comments bilateral feet PT-OP-T Assessment and Plan Start: 02/06/22 13:40 Freq: Status: Active Protocol: Document 03/21/22 09:45 AMB (Rec: 03/21/22 12:43 AMB [id number]) Physical Therapy Assessment Goals Three Impairment Strength Short Term Goal (STG) Cassandra will improve her ankle strength to 4+/5 in all planes bilaterally. STG Duration 4 weeks Mcc Goal (LTG) Cassandra will be independent with a HEP. LTG Duration 8 weeks Two Impairment ROM Short Term Goal (STG) Cassandra will improve her dorsiflexion to 15 degrees. STG Duration 4 weeks One Impairment Pain Short Term Goal (STG) Cassandra will walk for 5 minutes with shoes on wtih 4/10 foot pain or less. STG Duration 4 weeks Assessment Summary Assessment Cassandra is concerned about the thought of fusing the great toe and wondering how that would affect the numbness at toes 2-4. Discussed swelling management, but pt does not feel like she would be able to tolerate compression socks. Physical Therapy Plan Next Visit Focus/Plan Next Note Type Treatment Note Next Visit Plan ultrasound per pt request, foot intrinsic strengthening
--- NOTE | 2022-04-04 10:47 | PT.OTN ---
Current Diagnoses Lesion of plantar nerve, bilateral lower limbs (04/04/22) Achilles tendinitis, right leg (04/04/22) Pain in right foot (04/04/22) Pain in left foot (04/04/22) Physical Therapy Treatment Note PT-OP-A Visit Information Start: 02/06/22 13:40 Freq: Status: Active Protocol: Document 04/04/22 09:47 AMB (Rec: 04/04/22 10:47 AMB [id number]) Out-Patient Physical Therapy Visit Information Visit Information Visit Type Treatment Note Visit Start Time 09:45 Visit Stop Time 10:30 Total Visit Minutes 40 Visit Number 4 PT-OP-B Current Condition Start: 02/06/22 13:40 Freq: Status: Active Protocol: Document 02/21/22 09:39 AMB (Rec: 02/21/22 10:15 AMB [id number]) Current Condition History of Current Condition Onset Date chronic Current Complaints R>L foot pain. History of Current Condition Difficulty with walking more than 2 miles, difficulty with uneven terrain, difficulty in the morning with muscle spasms . Has been getting steroid injections. Does wear orthotics. Difficulty walking barefoot. Does report R sided swelling in the foot and the knee. Considering foot surgery, not really sure what they would do. Sudden sharp foot pain at times, but otherwise pain in the morning. Personal Factors Other Personal Factors That May Effect Depression, fibromyalgia, neck Therapy/Recovery pain, neuropathy, back pain PT-OP-C Subjective Start: 02/06/22 13:40 Freq: Status: Active Protocol: Document 04/04/22 09:47 AMB (Rec: 04/04/22 10:47 AMB [id number]) OP-PT Subjective Patient Comments Patient Comments Pt had covid hasn't been as active. PT-OP-F Manual Assessment Start: 02/06/22 13:40 Freq: Status: Active Protocol: Document 02/21/22 09:45 AMB (Rec: 02/26/22 16:12 AMB [id number]) Manual Assessments Soft Tissue Assessment Soft Tissue Mobility Assessment Pain/tightness with foot intrinsics Joint Mobility Assessment Joint Mobility Assessment Tightness in great toe extension PT-OP-K Range of Motion Start: 02/06/22 13:40 Freq: Status: Active Protocol: Document 02/21/22 09:45 AMB (Rec: 02/26/22 16:12 AMB [id number]) Ankle and Foot Goniometric Range of Motion Ankle and Foot Right Passive Dorsiflexion with Knee Extended 10 Left Passive Dorsiflexion with Knee Extended 10 PT-OP-M Strength Start: 02/06/22 13:40 Freq: Status: Active Protocol: Document 02/21/22 09:45 AMB (Rec: 02/26/22 16:12 AMB [id number]) Ankle/Foot Strength Ankle and Foot Manual Muscle Testing Right Dorsiflexion (L4) 4 Good Plantarflexion (S1) 4 Good Inversion 4- Good- Eversion (S1) 4- Good- Left Dorsiflexion (L4) 4 Good Plantarflexion (S1) 4 Good Inversion 4- Good- Eversion (S1) 4- Good- PT-OP-Q Treatments Start: 02/06/22 13:40 Freq: Status: Active Protocol: Document 04/04/22 09:47 AMB (Rec: 04/04/22 10:47 AMB [id number]) Manual Therapy Treatment Soft Tissue Mobilization ant foot/toes Body Location right foot Mobilization Type Cross-Friction,Myofascial Release,Strumming achilles/plantar fasciaa Body Location Right foot Mobilization Type Cross-Friction,Myofascial Release,Strumming Joint Mobilizations 1 Joint toes Comments AP/PA PT-OP-R Modalities Start: 02/06/22 13:40 Freq: Status: Active Protocol: Document 04/04/22 09:47 AMB (Rec: 04/04/22 10:47 AMB [id number]) Ultrasound Therapy Treatment Right Foot Treatment Duration (minutes) 8 Patient Position Supine Frequency Setting (mHz) 1 Intensity Setting (w/cm2) 1.5 Comments bilateral feet PT-OP-T Assessment and Plan Start: 02/06/22 13:40 Freq: Status: Active Protocol: Document 04/04/22 09:47 AMB (Rec: 04/04/22 10:47 AMB [id number]) Physical Therapy Assessment Goals Three Impairment Strength Short Term Goal (STG) Cassandra will improve her ankle strength to 4+/5 in all planes bilaterally. STG Duration 4 weeks Airport Operations Duty Manager Goal (LTG) Cassandra will be independent with a HEP. LTG Duration 8 weeks Two Impairment ROM Short Term Goal (STG) Cassandra will improve her dorsiflexion to 15 degrees. STG Duration 4 weeks One Impairment Pain Short Term Goal (STG) Cassandra will walk for 5 minutes with shoes on wtih 4/10 foot pain or less. STG Duration 4 weeks Assessment Summary Assessment Cassandra had a better treatment today, feeling better with toe extension. Can consider toe extension against tband for HEP as well as toe extension stretch. She hasn't been as active due to covid. Physical Therapy Plan Next Visit Focus/Plan Next Note Type Treatment Note Next Visit Plan ultrasound per pt request, foot intrinsic strengthening
--- NOTE | 2022-05-28 13:54 | PT.OTN ---
Current Diagnoses Lesion of plantar nerve, bilateral lower limbs (05/28/22) Achilles tendinitis, right leg (05/28/22) Pain in right foot (05/28/22) Pain in left foot (05/28/22) Physical Therapy Treatment Note PT-OP-A Visit Information Start: 02/06/22 13:40 Freq: Status: Active Protocol: Document 05/28/22 13:04 AMB (Rec: 05/28/22 13:57 AMB [id number]) Out-Patient Physical Therapy Visit Information Visit Information Visit Type Progress Note Visit Start Time 13:00 Visit Stop Time 13:45 Total Visit Minutes 45 Visit Number 5 PT-OP-B Current Condition Start: 02/06/22 13:40 Freq: Status: Active Protocol: Document 02/21/22 09:39 AMB (Rec: 02/21/22 10:15 AMB [id number]) Current Condition History of Current Condition Onset Date chronic Current Complaints R>L foot pain. History of Current Condition Difficulty with walking more than 2 miles, difficulty with uneven terrain, difficulty in the morning with muscle spasms . Has been getting steroid injections. Does wear orthotics. Difficulty walking barefoot. Does report R sided swelling in the foot and the knee. Considering foot surgery, not really sure what they would do. Sudden sharp foot pain at times, but otherwise pain in the morning. Personal Factors Other Personal Factors That May Effect Depression, fibromyalgia, neck Therapy/Recovery pain, neuropathy, back pain PT-OP-C Subjective Start: 02/06/22 13:40 Freq: Status: Active Protocol: Document 05/28/22 13:04 AMB (Rec: 05/28/22 13:57 AMB [id number]) OP-PT Subjective Patient Comments Patient Comments pt reports bilateral foot pain continuing PT-OP-F Manual Assessment Start: 02/06/22 13:40 Freq: Status: Active Protocol: Document 02/21/22 09:45 AMB (Rec: 02/26/22 16:12 AMB [id number]) Manual Assessments Soft Tissue Assessment Soft Tissue Mobility Assessment Pain/tightness with foot intrinsics Joint Mobility Assessment Joint Mobility Assessment Tightness in great toe extension PT-OP-K Range of Motion Start: 02/06/22 13:40 Freq: Status: Active Protocol: Document 02/21/22 09:45 AMB (Rec: 02/26/22 16:12 AMB [id number]) Ankle and Foot Goniometric Range of Motion Ankle and Foot Right Passive Dorsiflexion with Knee Extended 10 Left Passive Dorsiflexion with Knee Extended 10 PT-OP-M Strength Start: 02/06/22 13:40 Freq: Status: Active Protocol: Document 02/21/22 09:45 AMB (Rec: 02/26/22 16:12 AMB [id number]) Ankle/Foot Strength Ankle and Foot Manual Muscle Testing Right Dorsiflexion (L4) 4 Good Plantarflexion (S1) 4 Good Inversion 4- Good- Eversion (S1) 4- Good- Left Dorsiflexion (L4) 4 Good Plantarflexion (S1) 4 Good Inversion 4- Good- Eversion (S1) 4- Good- PT-OP-Q Treatments Start: 02/06/22 13:40 Freq: Status: Active Protocol: Document 05/28/22 13:00 AMB (Rec: 05/30/22 13:54 AMB [id number]) Therapeutic Exercises Supine Exercises calf stretches Reps/Minutes 30x2 toe flexion/ankle inversion Resistance AROM Reps/Minutes 10 Sitting Exercises AROM Sitting Exercise Name ankle and toes Comments gentle PT-OP-R Modalities Start: 02/06/22 13:40 Freq: Status: Active Protocol: Document 04/04/22 09:47 AMB (Rec: 04/04/22 10:47 AMB [id number]) Ultrasound Therapy Treatment Right Foot Treatment Duration (minutes) 8 Patient Position Supine Frequency Setting (mHz) 1 Intensity Setting (w/cm2) 1.5 Comments bilateral feet PT-OP-T Assessment and Plan Start: 02/06/22 13:40 Freq: Status: Active Protocol: Document 05/28/22 13:04 AMB (Rec: 05/28/22 13:57 AMB [id number]) Physical Therapy Assessment Goals Three Impairment Strength Short Term Goal (STG) Cassandra will improve her ankle strength to 4+/5 in all planes bilaterally. STG Duration MET Receiving Supervisor Goal (LTG) Cassandra will be independent with a HEP. LTG Duration MET Two Impairment ROM Short Term Goal (STG) Cassandra will improve her dorsiflexion to 15 degrees. STG Duration NOT MET One Impairment Pain Short Term Goal (STG) Cassandra will walk for 5 minutes with shoes on wtih 4/10 foot pain or less. 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 This makes it difficult to attend PT consistently. she feels confidnet in her ability to continue to progress her HEP at this point. She is not really thinking she'll have surgery, at least in the near future for her foot. Physical Therapy Plan Frequency and Duration Frequency of Treatment 1x/Week Duration of treatment (weeks) 1 Plan of Care Start Date 05/28/22 Plan of Care End Date 06/04/22 Therapeutic Interventions Therapeutic Interventions Balance Training,Gait Training ,Home Exercise Program,Joint Mobilizations,Manual Therapy, Neuromuscular Re-education, Therapeutic Activities, Therapeutic Exercises Modalities Cold Pack/Ice Massage,Electric Stimulation,Hot Packs, Ultrasound Discharge Physical Therapy Discharge Reasons Plateau in Progress
--- NOTE | 2022-05-28 13:55 | PT.OPPOC ---
Addendum entered and electronically signed by Tiara Kumar, PT 05/30/22 13:56: signature needed Original Note: Physical, Occupational & Speech Therapy At [facility] Current Diagnoses Lesion of plantar nerve, bilateral lower limbs (05/28/22) Achilles tendinitis, right leg (05/28/22) Pain in right foot (05/28/22) Pain in left foot (05/28/22) Visit Care Team Role Provider Type Miguel Angel Thomas MD Attending Provider Physician Primary Care Provider Referring Provider Specialty: Family Practice Address: [address] [place] [address] Email: [email or web address] Plan Of Care PT-OP-T Assessment and Plan Start: 02/06/22 13:40 Freq: Status: Active Protocol: Document 05/28/22 13:04 AMB (Rec: 05/28/22 13:57 AMB [id number]) Physical Therapy Assessment Goals Three Impairment Strength Short Term Goal (STG) Cassandra will improve her ankle strength to 4+/5 in all planes bilaterally. STG Duration MET Jail Goal (LTG) Cassandra will be independent with a HEP. LTG Duration MET Two Impairment ROM Short Term Goal (STG) Cassandra will improve her dorsiflexion to 15 degrees. STG Duration NOT MET One Impairment Pain Short Term Goal (STG) Cassandra will walk for 5 minutes with shoes on wtih 4/10 foot pain or less. 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 This makes it difficult to attend PT consistently. she feels confidnet in her ability to continue to progress her HEP at this point. She is not really thinking she'll have surgery, at least in the near future for her foot. Physical Therapy Plan Frequency and Duration Frequency of Treatment 1x/Week Duration of treatment (weeks) 1 Plan of Care Start Date 05/28/22 Plan of Care End Date 06/04/22 Therapeutic Interventions Therapeutic Interventions Balance Training,Gait Training ,Home Exercise Program,Joint Mobilizations,Manual Therapy, Neuromuscular Re-education, Therapeutic Activities, Therapeutic Exercises Modalities Cold Pack/Ice Massage,Electric Stimulation,Hot Packs, Ultrasound Discharge Physical Therapy Discharge Reasons Plateau in Progress Plan of Care Dates Plan of Care Start Date 05/28/22 Plan of Care End Date 06/04/22 Electronically Signed by: Tiara Kumar, PT 05/30/22 [id number] If you are in agreement with this Plan of Care, please return a signed and dated copy. I have reviewed this Plan of Care and certify that the skilled therapy services above are required to meet the patient?s needs. Physician Signature Date Printed Name and Credentials Clinical Instructor Signature Printed Name and Credentials
== END 2022-05-31 12:25 | disposition home or self-care (01) ==
LOC: PHYS 13:00
PROVIDERS: PCP Family Medicine; Referring Provider Family Medicine; Visit Provider Family Medicine
DX: G57.63 Lesion of plantar nerve, bilateral lower limbs (principal); M79.671 Pain in right foot; M79.672 Pain in left foot; M76.61 Achilles tendinitis, right leg
CPT/HCPCS: 97035; 97110; 97140; 97162

== ENCOUNTER → 2022-06-17 16:36 | Outpatient (CLI) | payer OTHER, MEDICAID, SELFPAY ==
--- NOTE | 2022-06-17 16:37 | DI.RAD.S_ITS ---
PROCEDURE: XR CERVICAL SPINE 2V OR 3V INDICATIONS: chronic neck pain TECHNIQUE: 3 view(s) of the cervical spine were acquired. COMPARISON: [facility], CR, XR CERVICAL SPINE 2 OR 3 VIEWS, 11/05/2018, 9:23. FINDINGS: Bones: No fractures or dislocations to the T1 level. The lateral masses of C1 appear intact on the odontoid view. No suspicious bony lesions. Loss of lordosis which could be related to muscle spasm, rigidity or simply positional. Multilevel disc height loss with endplate sclerosis and spurring, most notably and moderate at the C5-C6 and C6-C7 levels. Mild multilevel mid and lower cervical spine facet joint arthropathy and uncovertebral hypertrophy. Soft tissues: No prevertebral soft tissue swelling. IMPRESSION: Loss of lordosis and multilevel cervical spine spondylosis, most notably at the C5-C6 and C6-C7 levels which appears similar prior examination dated 11/05/2018. Dictated by: Morgan SCHULTZ Interpreted: Tj Booker MD on 06/17/2022 at 16:50 Transcribed by: ELLIE on 06/17/2022 at 16:52 Approved by: Tj Booker M.D. on 06/17/2022 at 20:04
== END ==
PROVIDERS: PCP Family Medicine; Referring Provider Family Medicine; Visit Provider Family Medicine
DX: M47.812 Spondylosis without myelopathy or radiculopathy, cervical region (principal); M54.2 Cervicalgia; G89.29 Other chronic pain
CPT/HCPCS: 72040

== ENCOUNTER → 2022-07-10 16:06 | Outpatient (CLI) | payer OTHER, MEDICAID, SELFPAY ==
--- NOTE | 2022-07-10 16:07 | DI.MRI.S_ITS ---
PROCEDURE: MR CERVICAL SPINE WO CON INDICATIONS: cervical radiculopathy TECHNIQUE: Noncontrast sagittal T1 spin echo and T2 fast spin echo, sagittal STIR, foraminal oblique sagittal T2 fast spin echo, and axial gradient echo or T2 fast spin echo through the cervical spine. COMPARISON: [facility], MR, C-SPINE WITHOUT CONTRAST, 11/24/2017, 12:08. FINDINGS: Image quality: Excellent. Alignment and Curvature: There is loss of normal cervical lordosis. Roughly 3 mm of retrolisthesis of C6 on C7. Bone Marrow: Marrow demonstrates normal overall signal. Mild reactive signal throughout the endplates of the cervical spine. Spinal Cord: Visualized spinal cord has normal size and signal. No cerebellar tonsillar herniation. Paraspinous Soft Tissues: No paravertebral masses. Prevertebral soft tissues are normal in thickness. C2-C3: Mild disc desiccation. Mild facet and uncovertebral hypertrophy bilaterally. Mild canal stenosis. Mild left greater than right foraminal stenosis. No significant change. C3-C4: Mild disc desiccation and diffuse disc bulge. Moderate right and mild left facet and uncovertebral hypertrophy. Mild canal stenosis. Severe right and mild left foraminal stenosis. Right C4 nerve root compression. No significant change. C4-C5: Mild disc desiccation and diffuse disc bulge. Mild facet and uncovertebral hypertrophy bilaterally. Mild canal stenosis. Moderate bilateral foraminal stenosis. No significant change. C5-C6: Moderate disc desiccation. Mild disc height loss and diffuse disc bulge. Mild facet and uncovertebral hypertrophy bilaterally. Mild canal stenosis. Moderate right and severe left foraminal stenosis. Left C6 nerve root compression. No significant change. C6-C7: Moderate disc desiccation. Mild disc height loss and diffuse disc bulge. Moderate facet and uncovertebral hypertrophy bilaterally. Mild canal stenosis. Severe left and moderate right foraminal stenosis. Left C7 nerve root compression. No significant change. C7-T1: Mild disc height loss and desiccation. Mild facet and uncovertebral hypertrophy bilaterally. Mild canal stenosis. Mild left greater than right foraminal stenosis. No significant change. IMPRESSION: 1. Multilevel degenerative disc and facet disease, as well as uncovertebral hypertrophy. 2. Mild multilevel canal stenoses. 3. Multilevel foraminal stenoses, worst at C3-C4, C5-C6, and C6-C7 where there is associated intraforaminal nerve root compression. Recommend correlation with clinical symptoms to ascertain relevance of these findings. Dictated by: Lazarus Stewart M.D. on 07/10/2022 at 16:52 Transcribed by: CHRISTOPHER on 07/10/2022 at 16:55 Approved by: Lazarus Stewart M.D. on 07/10/2022 at 17:03
== END ==
PROVIDERS: PCP Family Medicine; Referring Provider Family Medicine; Visit Provider Family Medicine
DX: M50.11 Cervical disc disorder with radiculopathy, high cervical region (principal); M48.02 Spinal stenosis, cervical region; G89.29 Other chronic pain
CPT/HCPCS: 72141

== ENCOUNTER → 2022-09-21 07:48 | Outpatient (CLI) | payer OTHER, MEDICAID, SELFPAY ==
--- NOTE | 2022-09-21 07:50 | DI.MRI.S_ITS ---
PROCEDURE: MR THORACIC SPINE WO CON INDICATIONS: Thoracic radiculopathy TECHNIQUE: Noncontrast sagittal T1 spine echo and T2 fast spin echo, sagittal STIR, and T2 fast spin echo through the thoracic spine. COMPARISON: [facility], , T-SPINE WITHOUT CONTRAST, 10/10/2015, 13:33. FINDINGS: Image quality: Excellent. Alignment and Curvature: There is normal bony alignment. Bone Marrow: Marrow is of normal overall signal. Active endplate changes are present T5-6 slightly more prominent when compared to prior exam. No acute vertebral body compression fractures. Spinal Cord: Visualized spinal cord is normal in size. There is a 1-2 mm increased T2 signal within the central portion of the canal unchanged and likely representing congenital variant central canal prominence. Paraspinous Soft Tissues: No paravertebral masses. Miscellaneous: Multilevel moderate to severe disc desiccation is present most notable from T4-5 through T8-9. On axial images, central canal and foramina appear widely patent at all scanned levels. Minimal disc bulges are present at T5-6, T6-7, T7-8. IMPRESSION: Overall relatively stable exam compared to 10/10/2015 with scattered disc bulges. Dictated by: Natalie Gallardo M.D. on 09/23/2022 at 8:10 Approved by: Natalie Gallardo M.D. on 09/23/2022 at 8:46
== END ==
PROVIDERS: PCP Family Medicine; Referring Provider Physical Medicine & Rehabilitation; Visit Provider Physical Medicine & Rehabilitation
DX: M48.10 Ankylosing hyperostosis [Forestier], site unspecified (principal); M54.14 Radiculopathy, thoracic region
CPT/HCPCS: 72146

== ENCOUNTER → 2022-12-28 10:08 | Outpatient (CLI) | payer OTHER, MEDICAID, SELFPAY ==
--- NOTE | 2022-12-28 10:11 | DI.RAD.S_ITS ---
PROCEDURE: XR TIBIA FIBULA LT 2V INDICATIONS: left tibia pain after fall TECHNIQUE: 2 views of the tibia and fibula were acquired. COMPARISON: None. FINDINGS: Bones: No fractures or dislocations. No suspicious bony lesions. Soft tissues: No suspicious soft tissue calcifications or masses. IMPRESSION: No acute osseous findings. Dictated by: Jacob Diaz M.D. on 12/28/2022 at 9:32 Approved by: Jacob Diaz M.D. on 12/28/2022 at 9:32
[2022-12-28 10:48] LABS: Add Manual Diff / Slide Review NO; Basophils Absolute Auto 100 /uL (0-100); Basophils Percent Auto 1.1 % (0-2); Eosinophils Absolute Auto 200 /uL (0-450); Eosinophils Percent Auto 2.8 % (2-4); Hematocrit 37.6 % (36-46); Hemoglobin 12.6 g/dL (12.0-16.0); Lymphocytes Absolute Auto 2000 /uL (1100-4500); Lymphocytes Percent Auto 35.1 % (25-40); Mean Corpuscular HGB Conc 33.6 % (30-36); Mean Corpuscular Hemoglobin 30.9 PG (26-34); Mean Corpuscular Volume 92.1 fL (80-100); Monocytes Absolute Auto 400 /uL (0-900); Monocytes Percent Auto 6.8 % (3-14); Neutrophils Absolute Auto 3100 /uL (1500-7000); Neutrophils Percent Auto 54.2 % (50-75); Platelet Count 274 X10^3/uL (150-400); Red Blood Cell Count 4.08 X10^6/uL (4.0-5.2); Red Cell Distribution Width 14.4 % (11.6-14.8); White Blood Cell Count 5.7 X10^3/uL (4.5-11.0)
[2022-12-28 11:12] LABS: Alanine Aminotransferase 26 IU/L (<35); Albumin Globulin Ratio 1.3 (1.0-2.8); Alkaline Phosphatase 62 U/L (38-126); Aspartate Aminotransferase 26 IU/L (14-36); BUN Creatinine Ratio 22.2 (6-22); Bilirubin Total 0.3 mg/dL (0.2-1.3); Blood Urea Nitrogen 14 mg/dL (7-17); Carbon Dioxide 27 mmol/L (22-32); Chloride 104 mmol/L (98-107); Cholesterol 222 mg/dL (140-199); Estimated Glomerular Filt Rate > 60 mL/min (>60); Globulin 3.1 g/dL (1.7-4.1); Glucose 102 mg/dL (70-100); HDL Cholesterol 80 mg/dL (40-60); HEMOLYSIS < 15 (0-50); LDL Cholesterol Calculated 129 mg/dL (<100); Potassium 4.5 mmol/L (3.4-5.1); Sodium 137 mmol/L (137-145); Total Protein 7.1 g/dL (6.3-8.2); Triglycerides 67 mg/dL (35-150)
[2022-12-28 11:39] LABS: TSH w/ Reflex to FT4 1.76 uIU/mL (0.47-4.68)
[2022-12-28 11:59] LABS: Vitamin B12 Reflex MMA if <400 304 pg/mL (239-931)
[2023-01-02 18:07] LABS: Methylmalonic Acid,Serum 141 nmol/L (0-378)
== END ==
PROVIDERS: PCP Family Medicine; Referring Provider Family Medicine; Visit Provider Family Medicine
DX: M79.605 Pain in left leg (principal); E53.8 Deficiency of other specified B group vitamins; F90.2 Attention-deficit hyperactivity disorder, combined type; M79.7 Fibromyalgia; R61 Generalized hyperhidrosis
CPT/HCPCS: 36415; 73590; 80053; 80061; 82607; 83921; 84443; 85025

== ENCOUNTER → 2022-12-30 08:02 | Outpatient (CLI) | payer OTHER, MEDICAID, SELFPAY ==
--- NOTE | 2022-12-30 08:03 | DI.MG.S_ITS ---
BILATERAL DIGITAL SCREENING MAMMOGRAM 3D/2D WITH CAD: 12/30/2022 CLINICAL: Baseline exam. Routine screening. Family history of breast cancer. No prior exams were available for comparison. Both breasts are heterogeneously dense, which may obscure small masses (category c / 51-75% glandular tissue). Current study was also evaluated with a Computer Aided Detection (CAD) system. No significant masses, calcifications, or other findings are seen in either breast. IMPRESSION: NEGATIVE There is no mammographic evidence of malignancy. A 1 year screening mammogram is recommended. Based on the Tyrer Cuzick model (a risk assessment model) the patient's lifetime risk is 17.6% and her 10 year risk is 4.9%. According to the ACR, ACS, and NCCN guidelines, an annual breast MRI exam along with mammogram is recommended if the patient's lifetime risk is 20% or greater. This exam was interpreted at Station ID: [id number]. NOTE: For mammograms, a report in lay terms will be sent to the patient. Approximately 15% of breast malignancies will not be visualized mammographically. In the management of a palpable breast mass, a negative mammogram must not discourage biopsy of a clinically suspicious lesion. Electronically Signed By: Puma mancuso/judith:12/30/2022 08:54:01 letter sent: Normal Exam ACR BI-RADS Category 1: Negative [id number]
== END ==
PROVIDERS: PCP Family Medicine; Referring Provider Family Medicine; Visit Provider Family Medicine
DX: Z12.31 Encounter for screening mammogram for malignant neoplasm of breast (principal); Z80.3 Family history of malignant neoplasm of breast
CPT/HCPCS: 77063; 77067

== ENCOUNTER → 2023-01-13 07:54 | Outpatient (CLI) | payer OTHER, MEDICAID, SELFPAY ==
--- NOTE | 2023-01-13 08:26 | DI.MRI.S_ITS ---
PROCEDURE: MR FOOT RT WO/W CON INDICATIONS: Other specified joint disorders, right foot TECHNIQUE: Noncontrast sagittal T1 spin echo and T2 fast spin echo with fat saturation, long-axis T1 spin echo and T2 fast spin echo with fat saturation; short-axis T1 spin echo, proton density fast spin echo, and T2 fast spin echo with fat saturation through the forefoot. Post-contrast short axis, long axis, and sagittal T1 spin echo with fat saturation through the forefoot. COMPARISON: [facility], CR, XR FOOT 3 VIEWS WEIGHT BEARING BILATERAL, 02/14/2022, 8:45. FINDINGS: Image quality: Excellent. Bones and joints: Mild hallux valgus. Moderate degenerative changes are seen at the 1st metatarsophalangeal joint. Cystic changes are noted in the medial 1st metatarsal head. There is mild lateral subluxation of the hallux sesamoids. Scattered degenerative changes are seen at the interphalangeal joints of the toes. There are moderate degenerative changes in the midfoot, most prominently at the 2nd tarsometatarsal joint with subchondral edema and subchondral cystic changes and dorsal osteophyte formation. No intraosseous lesions. Soft tissues: Mild nonspecific subcutaneous edema in the plantar subcutaneous tissues adjacent to the 3rd through 5th metatarsal heads. A 6 mm nonenhancing ganglion cyst is seen dorsal to the medial cuneiform. No enhancing soft tissue mass. The visualized plantar foot muscles demonstrate normal signal and bulk. The distal insertions of the peroneus brevis and longus tendons appear intact. The principal Lisfranc ligament appears intact. Sagittal images demonstrate no evidence for plantar plate tears. IMPRESSION: 1. Hallux valgus with moderate degenerative changes at the 1st metatarsophalangeal joint. 2. Moderate degenerative changes in the tarsometatarsal joints, worst at the 2nd metatarsophalangeal joint where there is dorsal osteophyte formation and subchondral edema. 3. Ganglion cyst measuring 6 mm dorsal to the 1st and 2nd cuneiforms. 4. Nonspecific subcutaneous soft tissue edema plantar to the 3rd through 5th metatarsal heads, possibly representing trace adventitial bursal fluid collections. Approved by: Tj Booker M.D. on 01/13/2023 at 13:00
== END ==
PROVIDERS: PCP Family Medicine; Referring Provider Podiatrist; Visit Provider Podiatrist
DX: M25.871 Other specified joint disorders, right ankle and foot (principal); M77.41 Metatarsalgia, right foot; M20.11 Hallux valgus (acquired), right foot; M25.774 Osteophyte, right foot; M67.471 Ganglion, right ankle and foot; R60.0 Localized edema
CPT/HCPCS: 73720; A9579

== ENCOUNTER 2023-03-11 09:51 | Outpatient (CLI) | payer OTHER, MEDICAID, SELFPAY ==
[2023-03-11] VITALS (9 sets, daily range): BP systolic 120–141; BP diastolic 72–89; PULSE 60–74; RESP 14–21; TEMP 36.5; O2SAT 100
--- NOTE | 2023-03-11 09:52 | DI.RAD.S_ITS ---
PROCEDURE: PAIN C/T INTERLAMINAR INJECT INDICATIONS: SPINAL STENOSIS COMPARISON: [facility], MR, MR THORACIC SPINE WO CON, 09/21/2022, 7:59. FINDINGS: Fluoroscopic spot filming was performed to verify placement of a spinal needle within the midthoracic spine, as labeled on the films. An appropriate location of the needle tip was confirmed by injection of iodinated contrast. IMPRESSION: Intraprocedural examination within normal limits. Dictated by: Garrick Hoffmann M.D. on 03/11/2023 at 10:42 Approved by: Garrick Hoffmann M.D. on 03/11/2023 at 10:43
[2023-03-11] MEDS: MIDAZOLAM 2 MG/2 ML VIAL IV (10:18)
[2023-03-11] MEDS: BUPIVACAINE 0.25% (PF) VIAL 2 ML SUBCUT (10:23)
[2023-03-11] MEDS: DEXAMETHASONE 10 MG/ML VIAL 30 MG INJ (10:23)
[2023-03-11] MEDS: IOPAMIDOL 15 ML VIAL 3 ML INJ (10:24)
--- NOTE | 2023-03-11 10:39 | PM.PROC.IR.1 ---
Date/Time/Diagnoses Date of procedure: 03/11/23 Time of procedure: 10:39 Pre-procedure diagnosis: Thoracic stenosis with HNP Post-procedure diagnosis: same Procedure Notes Procedure: Fluoroscopic guided, contrast controlled T7/8 translaminar epidural steroid injection with conscious sedation. Indications: Cassandra is referred by Dr. Thomas for treatment of thoracic DDD/DJD with radiculopathy Physician: Earnest Washburn Total Fluoroscopy time (seconds): 16 Total sedation minutes: 17 Complications: none Procedure in detail & Post-procedure care: DESCRIPTION OF PROCEDURE Fluoroscopic guided, contrast controlled T7/8 translaminar epidural steroid injection with conscious sedation. Following review of allergy review potential side effects and complications, including, but not necessarily limited to, infection, allergic reaction, local tissue breakdown, temporary as well as permanent nerve injury, stroke, paralysis and possible , the patient indicated that they understood and agreed to proceed. An informed consent document was signed by the patient, witnessed by the nurse, and placed in the patient's chart. Additionally other treatment options including modalities, medications and physical therapy were reviewed with the patient. After review of previous anaesthesic history and IV conscious sedation the patient was deemed safe to proceed with today's procedure with IV conscious sedation as ASA class II designation. Safety time-out was performed to confirm patient ID, procedure to be performed and site of procedure. IV sedation was accomplished with a combination of 2mg of Versed administered by the RN after DO order, titrated to patient comfort during the course of the procedure while the patient remained responsive to all verbal commands In the prone position, following sterile prep and drape of the thoracic region the T7/8 translaminar space was identified fluoroscopically. The skin was anesthetized via 25 gauge 1.5inch needle with 1% lidocaine solution. At this point a 22gauge epidural needle was atraumatically introduced and advanced under fluoroscopic guidance into the region of the T7/8 translaminar space depth was confirmed on lateral view. Radiographic data, including multiple fluoroscopic views of the thoracic spine, reveals spinal needle at the T7/8 translaminar space. Lateral views then showed the placement of the needle in the epidural space. Subsequent view show contrast material flowing superiorly and inferiorly in the epidural space. No vascular or intrathecal uptake is observed. At this point using loss of resistance technique with saline and the epidural space was entered. This was confirmed followed negative aspiration and injection of approximately 1.5cc of Isovue 200 showed excellent epidural flow without vascular or intrathecal uptake. At this point, 1 cc of 1% lidocaine solution was admitted as a test dose and the patient was observed for an appropriate period of time without signs or symptoms of complications, including abdominal pain, shortness of breath, bilateral upper and lower extremity weakness, nausea and vomiting, prior to steroid injection. Subsequently, 3cc or 30mg of dexamethasone was then injected without incident. The patient tolerated the procedure well without signs of complications and subsequently was transferred to the recovery room for further monitoring. The patient was then transferred to the recovery area with their observed for an appropriate time after the injection. Patient reported a VAS score of 7 prior to the procedure and post-procedure VAS of 2.
== END 2023-03-11 10:55 | disposition home or self-care (01) ==
LOC: RAD 09:51
PROVIDERS: PCP Family Medicine; Referring Provider Physical Medicine & Rehabilitation; Visit Provider Physical Medicine & Rehabilitation
DX: M48.04 Spinal stenosis, thoracic region (principal); M51.14 Intervertebral disc disorders with radiculopathy, thoracic region
CPT/HCPCS: 62321; 99152; J1100; J2250; J3490

== ENCOUNTER → 2023-04-17 13:11 | Outpatient (CLI) | payer OTHER, MEDICAID, SELFPAY ==
--- NOTE | 2023-04-17 13:13 | DI.RAD.S_ITS ---
PROCEDURE: XR LUMBAR SPINE MIN 4V INDICATIONS: BACK PAIN TECHNIQUE: 5 views of the lumbar spine were acquired, including bilateral oblique views. COMPARISON: [facility], CR, XR LUMBAR SPINE MIN 4V, 02/09/2021, 9:28. FINDINGS: Bones: 5 nonrib-bearing vertebrae are present. There 1.1 cm anterolisthesis of L4 on L5 measuring, stable from prior. No vertebral body compression fractures. No suspicious bony lesions. Soft tissues: Overlying bowel gas pattern is normal. No suspicious soft tissue calcifications. Oblique images: No pars defects. IMPRESSION: No acute osseous abnormality. Stable 1.1 cm anterolisthesis of L4 on L5. Dictated by: Awa Sosa M.D. on 04/17/2023 at 18:20 Approved by: Awa Sosa M.D. on 04/17/2023 at 18:23
--- NOTE | 2023-04-17 13:13 | DI.RAD.S_ITS ---
PROCEDURE: XR THORACIC SPINE 3V INDICATIONS: RIB PAIN TECHNIQUE: 3 views of the thoracic spine were acquired. COMPARISON: [facility], CR, XR THORACIC SPINE 3V, 02/09/2021, 9:28. FINDINGS: Bones: No fractures or dislocations. No suspicious bony lesions. 12 pairs of ribs are noted, and appear intact where visualized. Mild disc space narrowing and osteophytosis at the midthoracic spine. Soft tissues: No paravertebral stripe thickening. IMPRESSION: No acute osseous abnormality. Mild degenerative disc disease of the thoracic spine. Dictated by: Awa Sosa M.D. on 04/17/2023 at 18:18 Approved by: Awa Sosa M.D. on 04/17/2023 at 18:20
== END ==
PROVIDERS: PCP Family Medicine; Referring Provider Physical Medicine & Rehabilitation; Visit Provider Physical Medicine & Rehabilitation
DX: M47.817 Spondylosis without myelopathy or radiculopathy, lumbosacral region (principal); M43.16 Spondylolisthesis, lumbar region; M51.04 Intervertebral disc disorders with myelopathy, thoracic region; M51.14 Intervertebral disc disorders with radiculopathy, thoracic region; M54.9 Dorsalgia, unspecified
CPT/HCPCS: 72072; 72110

== ENCOUNTER 2023-06-03 07:39 | Outpatient (CLI) | payer OTHER, MEDICAID, SELFPAY ==
[2023-06-03] VITALS (9 sets, daily range): BP systolic 105–118; BP diastolic 68–77; PULSE 53–75; RESP 11–23; TEMP 36.7; O2SAT 99–100
--- NOTE | 2023-06-03 07:39 | DI.RAD.S_ITS ---
PROCEDURE: PAIN L/S TRANSFORAMINAL INJECT INDICATIONS: SPONDYLOSIS COMPARISON: [facility], CR, XR LUMBAR SPINE MIN 4V, 04/17/2023, 13:16. FINDINGS: Fluoroscopic spot filming was performed to verify placement of a spinal needle at the L4-L5 level, as labeled on the films. Appropriate location of the needle tip was confirmed by injection of iodinated contrast. IMPRESSION: Intraprocedural examination within normal limits. Dictated by: Garrick Hoffmann M.D. on 06/03/2023 at 18:17 Approved by: Garrick Hoffmann M.D. on 06/03/2023 at 18:17
[2023-06-03] MEDS: MIDAZOLAM 2 MG/2 ML VIAL IV (08:37)
[2023-06-03] MEDS: iopamidoL 15 ML VIAL 3 ML INJ (08:42)
[2023-06-03] MEDS: BUPIVACAINE 0.25% (PF) VIAL 2 ML INJ (08:43)
[2023-06-03] MEDS: BETAMETHASONE 30 MG/5 ML MDV 6 MG INJ (08:43)
[2023-06-03] MEDS: DEXAMETHASONE 10 MG/ML VIAL INJ (08:43)
--- NOTE | 2023-06-03 08:53 | P.PCN_ITS ---
Date/Time/Diagnoses Date of procedure: 06/03/23 Time of procedure: 08:53 Pre-procedure diagnosis: 1. FORAMINAL STENOSIS WITH LE SYMPTOMS Post-procedure diagnosis: same Procedure Notes Procedure: 1. FLUOROSCOPICALLY GUIDED CONTRAST CONTROLLED TRANSFORAMINAL EPIDURAL STEROID INJECTION - LEFT L4/5 Indications: Cassandra is referred by Dr. Thomas for treatment of Foraminal Stenosis with Left LE Symptoms Physician: Earnest Washburn Total Fluoroscopy time (seconds): 11 Total sedation minutes: 12 Complications: none Procedure in detail & Post-procedure care: FINDINGS Foraminal Nerve Root Compression secondary to disc disease and facet hypertrophy DESCRIPTION OF PROCEDURE Following review of allergy and review of potential side effects and complications, including, but not necessarily limited to, infection, allergic reaction, local tissue breakdown, stroke, temporary or permanent nerve injury, paralysis, and possible , the patient indicated that the patient understood and agreed to proceed. An informed consent document was signed by the patient, witnessed by a nurse, and placed in the patient's chart. Additionally, other treatment options including medications, modalities, and physical therapy were reviewed with the patient. After review of previous anaesthesic history and IV conscious sedation the patient was deemed safe to proceed with today?s procedure with IV conscious sedation as ASA class II designation. Safety time-out was performed to confirm patient ID, procedure to be performed and site of procedure. IV sedation was accomplished with a combination of 2mg of Versed administered by the RN after DO order, titrated to patient comfort during the course of the procedure while the patient remained responsive to all verbal commands In the prone position following sterile prep and drape of the lumbar region, the left L4/5 posterior neuroforamen was identified fluoroscopically. The skin was anesthetized via a 25-gauge 1.5-inch needle with 1% lidocaine solution. At this point, a 25-gauge 3.5-inch spinal needle was atraumatically introduced and advanced under fluoroscopic guidance through the posterior left L4/5 neuroforamen to approximately the anterior aspect of the canal. Depth was confirmed on lateral view. Following negative aspiration, injection of approximately 1.5 cc of Isovue 200 under live fluoroscopy in the AP view confirmed excellent flow along the nerve root, into the epidural space without vascular or intrathecal uptake observed Radiological data, including multiple fluoroscopic views of the lumbosacral spine, reveal a spinal needle at the left L4/5 posterior neuroforamen. Subsequent views show flow of contrast material flowing superiorly and inferiorly along the nerve root confirming epidural flow. Subsequently, a test dose of 1.5 cc of 1% lidocaine solution was administered and patient was observed for two minutes for signs or symptoms of complications, including abdominal pain, shortness of breath, bilateral upper or lower extremity weakness, nausea and vomiting, prior to steroid injection. At this point, a total of 2cc or 10mg of dexamethasone and 6mg of betamethasone was injected without incident. The procedure tolerated the procedure well without signs or symptoms of complications prior to transfer to the recovery area continued monitoring without incident. The patient was then transferred to the recovery area where they were observed for an appropriate time after the injection. The patient reported a VAS score of 7 prior to the procedure and a post- procedure VAS of 1. POST OP INSTRUCTIONS The patient was provided a Pain Log to continue to record their response to the target-specific procedure prior to follow-up visit with their referring physician. Additionally, specific post-injection care instructions and a contact number to our office were provided if concerns arise regarding possible complications associated with the procedure are suspected.
== END 2023-06-03 09:10 | disposition home or self-care (01) ==
PROVIDERS: PCP Family Medicine; Referring Provider Physical Medicine & Rehabilitation; Visit Provider Physical Medicine & Rehabilitation
DX: M43.16 Spondylolisthesis, lumbar region (principal); M51.16 Intervertebral disc disorders with radiculopathy, lumbar region
CPT/HCPCS: 64483; 99152; J0702; J1100; J2250; J3490

== ENCOUNTER 2023-09-23 13:22 | Outpatient (CLI) | payer OTHER, MEDICAID, SELFPAY ==
[2023-09-23] VITALS (8 sets, daily range): BP systolic 109–134; BP diastolic 64–83; PULSE 64–86; RESP 10–20; TEMP 36.6; O2SAT 100
--- NOTE | 2023-09-23 14:00 | DI.RAD.S_ITS ---
PROCEDURE: PAIN L/S TRANSFORAMINAL INJECT INDICATIONS: RADICULOPATHY COMPARISON: [facility], , PAIN L/S TRANSFORAMINAL INJECT, 06/03/2023, 8:40. FINDINGS: Fluoroscopic spot filming was performed to verify placement of a spinal needle at the L4-L5 level, as labeled on the films. Appropriate location of the needle tip was confirmed by injection of iodinated contrast. IMPRESSION: Intraprocedural examination within normal limits. Dictated by: Garrick Hoffmann M.D. on 09/23/2023 at 15:45 Approved by: Garrick Hoffmann M.D. on 09/23/2023 at 15:46
[2023-09-23] MEDS: MIDAZOLAM 2 MG/2 ML VIAL IV (14:41)
[2023-09-23] MEDS: BUPIVACAINE 0.25% (PF) VIAL 2 ML INJ (14:47)
[2023-09-23] MEDS: BETAMETHASONE 30 MG/5 ML MDV 6 MG INJ (14:47)
[2023-09-23] MEDS: DEXAMETHASONE 10 MG/ML VIAL INJ (14:47)
[2023-09-23] MEDS: iopamidoL 15 ML VIAL 3 ML INJ (14:48)
--- NOTE | 2023-09-23 15:02 | P.PCN_ITS ---
Date/Time/Diagnoses Date of procedure: 09/23/23 Time of procedure: 15:02 Pre-procedure diagnosis: 1. FORAMINAL STENOSIS WITH LE SYMPTOMS Post-procedure diagnosis: same Procedure Notes Procedure: 1. FLUOROSCOPICALLY GUIDED CONTRAST CONTROLLED TRANSFORAMINAL EPIDURAL STEROID INJECTION - RIGHT L4/5 TFESI Indications: Cassandra is referred by Dr. Thomas for treatment of Foraminal Stenosis with Right LE Symptoms Physician: Earnest Washburn Total Fluoroscopy time (seconds): 14 Total sedation minutes: 11 Complications: none Procedure in detail & Post-procedure care: FINDINGS Foraminal Nerve Root Compression secondary to disc disease and facet hypertrophy DESCRIPTION OF PROCEDURE Following review of allergy and review of potential side effects and complications, including, but not necessarily limited to, infection, allergic reaction, local tissue breakdown, stroke, temporary or permanent nerve injury, paralysis, and possible , the patient indicated that the patient understood and agreed to proceed. An informed consent document was signed by the patient, witnessed by a nurse, and placed in the patient's chart. Additionally, other treatment options including medications, modalities, and physical therapy were reviewed with the patient. After review of previous anaesthesic history and IV conscious sedation the patient was deemed safe to proceed with today?s procedure with IV conscious sedation as ASA class II designation. Safety time-out was performed to confirm patient ID, procedure to be performed and site of procedure. IV sedation was accomplished with a combination of 2mg of Versed was administered by the RN after DO order, titrated to patient comfort during the course of the procedure while the patient remained responsive to all verbal commands In the prone position following sterile prep and drape of the lumbar region, the right L4/5 posterior neuroforamen was identified fluoroscopically. The skin was anesthetized via a 25-gauge 1.5-inch needle with 1% lidocaine solution. At this point, a 25-gauge 3.5-inch spinal needle was atraumatically introduced and advanced under fluoroscopic guidance through the posterior right L4/5 neuroforamen to approximately the anterior aspect of the canal. Depth was confirmed on lateral view. Following negative aspiration, injection of approximately 1.5cc of Isovue 200 under live fluoroscopy in the AP view c onfirmed excellent flow along the nerve root, into the epidural space without vascular or intrathecal uptake observed Radiological data, including multiple fluoroscopic views of the lumbosacral spi ne, reveal a spinal needle at the right L4/5 posterior neuroforamen. Subsequent views show flow of contrast material flowing superiorly and inferiorly along the nerve root confirming epidural flow. Subsequently, a test dose of 1.5 cc of 1% lidocaine solution was administered and patient was observed for two minutes for signs or symptoms of complications, including abdominal pain, shortness of breath, bilateral upper or lower extremity weakness, nausea and vomiting, prior to steroid injection. At this point, a total of 2cc or 10mg of dexamethasone and 6mg of betamethasone was injected without incident. The procedure tolerated the procedure well without signs or symptoms of complications prior to transfer to the recovery area continued monitoring without incident. The patient was then transferred to the recovery area where they were observed for an appropriate time after the injection. The patient reported a VAS score of 7 prior to the procedure and a post- procedure VAS of 0. POST OP INSTRUCTIONS The patient was provided a Pain Log to continue to record their response to the target-specific procedure prior to follow-up visit with their referring physician. Additionally, specific post-injection care instructions and a contact number to our office were provided if concerns arise regarding possible complications associated with the procedure are suspected.
== END 2023-09-23 15:20 | disposition home or self-care (01) ==
PROVIDERS: PCP Family Medicine; Referring Provider Physical Medicine & Rehabilitation; Visit Provider Physical Medicine & Rehabilitation
DX: M48.061 Spinal stenosis, lumbar region without neurogenic claudication (principal); M51.16 Intervertebral disc disorders with radiculopathy, lumbar region; M47.26 Other spondylosis with radiculopathy, lumbar region
CPT/HCPCS: 64483; 99152; J0702; J1100; J2250; J3490

== ENCOUNTER → 2024-01-02 08:45 | Outpatient (CLI) | payer OTHER, MEDICAID, SELFPAY ==
--- NOTE | 2024-01-02 08:47 | DI.MRI.S_ITS ---
PROCEDURE: MR THORACIC SPINE WO CON INDICATIONS: LUMBAR AND THORACIC PAIN TECHNIQUE: Noncontrast sagittal T1 spine echo and T2 fast spin echo, sagittal STIR, and T2 fast spin echo through the thoracic spine. COMPARISON: [facility], MR, T-SPINE WITHOUT CONTRAST, 10/10/2015, 13:33. [facility], MR, MR THORACIC SPINE WO CON, 09/21/2022, 7:59. [facility], MR, MR LUMBAR SPINE WO CON, 01/02/2024, 9:14. FINDINGS: Image quality: Excellent. Alignment and Curvature: Accentuated thoracic kyphosis is seen. No focal AP alignment abnormality is seen. Bone Marrow: At the T5 through T7 levels, there is abnormal marrow signal seen, with largely increased T1 weighted and T2 weighted signal, with areas of mildly increased STIR signal. Overall, this is most consistent with fatty metaplasia, with a mild degree of underlying edema. Overall, the STIR signal is decreased compared to the 09/13/2022 examination. No focally suspicious bone marrow lesions are seen. Spinal Cord: Visualized spinal cord is normal in size and signal. Paraspinous Soft Tissues: No paravertebral masses. Miscellaneous: Several levels of degenerative change can be seen, with at least moderate disc space narrowing seen at 3 T5-T6 and T6-T7. Minimal disc bulges can be seen within the mid thoracic spine, at which is overall worst at the T7-T8 level. A few levels of mild neural foraminal narrowing can be seen involving the mid to lower thoracic spine. No significant central canal narrowing is seen. IMPRESSION: Midthoracic spine degenerative changes are seen, with overall decreased bone marrow edema since the prior examination. No significant central canal narrowing can be seen. Several levels of mild neural foraminal narrowing can be seen within the mid to lower thoracic spine. Dictated by: Garrick Hoffmann M.D. on 01/02/2024 at 10:17 Approved by: Garrick Hoffmann M.D. on 01/02/2024 at 10:38
--- NOTE | 2024-01-02 08:47 | DI.MRI.S_ITS ---
PROCEDURE: MR LUMBAR SPINE WO CON INDICATIONS: LUMBAR AND THORACIC PAIN TECHNIQUE: Noncontrast sagittal T1 spin echo and T2 fast echo, sagittal STIR, and T2 fast spin echo through the lumbar spine. In cases with scoliosis, additional coronal T2 fast spin echo may be performed. COMPARISON: [facility], MR, MR THORACIC SPINE WO CON, 01/02/2024, 9:14. [facility], MR, L-SPINE WITHOUT CONTRAST, 10/10/2015, 14:02. FINDINGS: Image quality: Excellent. Alignment and Curvature: Minimal retrolisthesis is seen at the L3-L4 level. There is grade 1 anterolisthesis seen at the L4-L5 level. Associated pars defects are not seen. Minimal retrolisthesis can be seen at L5-S1. Bone Marrow: Marrow is of normal overall signal. No acute vertebral body compression fractures. Spinal Cord: Conus medullaris terminates at the L1 level. Visualized cord demonstrates normal signal and size. Paraspinous Soft Tissues: No paravertebral masses. T12-L1: Normal appearance. L1-L2: Normal appearance. L2-L3: Normal appearance. L3-L4: Mild loss of disc height is seen. Loss of disc signal is seen. Mild generalized disc bulge is seen. Mild facet joint hypertrophy is seen. There is [id number] left-sided and no right-sided neural foraminal narrowing. No central canal narrowing is seen. L4-L5: Moderate loss of disc height is seen. Loss of disc signal is seen. Moderate disc bulge is seen, which is eccentric to the left. There is moderate to prominent facet hypertrophy seen at this level. There is at least moderate bilateral neural foraminal narrowing seen. At least moderate central canal narrowing is seen. L5-S1: Mild loss of disc height is seen. Loss of disc signal is seen. Mild generalized disc bulge is seen. Mild facet joint hypertrophy is seen. There is moderate right-sided and mild left-sided neural foraminal narrowing. No central canal narrowing is seen. IMPRESSION: Lumbar spine degenerative changes are seen, which are worst inferiorly. Dictated by: Garrick Hoffmann M.D. on 01/02/2024 at 10:11 Approved by: Garrick Hoffmann M.D. on 01/02/2024 at 10:16
== END ==
PROVIDERS: Family Provider Family Medicine; PCP Family Medicine; Referring Provider Physician Assistant; Visit Provider Physician Assistant
DX: M48.04 Spinal stenosis, thoracic region (principal); M47.814 Spondylosis without myelopathy or radiculopathy, thoracic region; M47.27 Other spondylosis with radiculopathy, lumbosacral region; M47.816 Spondylosis without myelopathy or radiculopathy, lumbar region; M43.16 Spondylolisthesis, lumbar region; M79.7 Fibromyalgia; M54.6 Pain in thoracic spine; R20.2 Paresthesia of skin
CPT/HCPCS: 72146; 72148

== ENCOUNTER → 2024-01-15 11:31 | Outpatient (CLI) | payer OTHER, MEDICAID, SELFPAY ==
[2024-01-15 13:15] LABS: Erythrocyte Sedimentation Rate 9 MM/HR (0-20)
[2024-01-15 13:25] LABS: C-Reactive Protein Quant < 0.5 mg/dL (<1.0); Rheumatoid Factor < 8.6 IU/mL (<12.0)
== END ==
PROVIDERS: Family Provider Family Medicine; PCP Family Medicine; Referring Provider Family Medicine; Visit Provider Family Medicine
DX: M43.16 Spondylolisthesis, lumbar region (principal); M54.16 Radiculopathy, lumbar region; E53.8 Deficiency of other specified B group vitamins; J44.9 Chronic obstructive pulmonary disease, unspecified; M54.14 Radiculopathy, thoracic region; M51.34 Other intervertebral disc degeneration, thoracic region; M51.04 Intervertebral disc disorders with myelopathy, thoracic region; M47.817 Spondylosis without myelopathy or radiculopathy, lumbosacral region; M19.90 Unspecified osteoarthritis, unspecified site
CPT/HCPCS: 36415; 81374; 85651; 86140; 86200; 86430

== ENCOUNTER 2024-01-26 07:30 | Outpatient (RCR) | payer OTHER, MEDICAID, SELFPAY ==
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
--- NOTE | 2023-10-29 16:57 | PT.OTN ---
Current Diagnoses Radiculopathy, lumbar region (10/29/23) Physical Therapy Treatment Note PT-OP-A Visit Information Start: 10/24/23 16:59 Freq: Status: Active Protocol: Document 10/29/23 08:16 NM (Rec: 10/29/23 09:03 NM [id number]) Out-Patient Physical Therapy Visit Information Visit Information Visit Type Treatment Note Visit Note 10/18 Visit Start Time 08:16 Visit Stop Time 08:51 Visit Number 2 Evaluation Information Evaluation Date 10/27/23 PT-OP-B Current Condition Start: 10/24/23 16:59 Freq: Status: Active Protocol: Document 10/27/23 08:07 NM (Rec: 10/27/23 10:15 NM [id number]) Current Condition History of Current Condition Onset Date 12 years Current Complaints pain, balance, weakness History of Current Condition Pt presents with low back pain , chronic condition. She has had low back pain for about 12 years, hx of pain after falling down stairs as child and heavy lifting. She has had several nerve conduction studies, R foot pain. 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 She receives botox for her thoracic spine and for migraines; she will not be able to receive botox for 2 months due to scheduling. She has R foot drop, gets swelling , progressively weaker. She has orthotics. Worse with uneven ground, sitting with knees elevated, squatting, positional changes. she has had several epidural steroids for pain, May and September 23. She also has pain in mid back. Reports changes in balance, hx of falls. Prior Treatments and Tests Hx PT PT-OP-C Subjective Start: 10/24/23 16:59 Freq: Status: Active Protocol: Document 10/29/23 08:16 NM (Rec: 10/29/23 09:03 NM [id number]) OP-PT Subjective Patient Comments Patient Comments Pt reports soreness in low back after evaluation, but no increased pain because she hasn't done anything. She slept poorly due to position, couldn't get comfortable. PT-OP-D Balance Start: 10/24/23 16:59 Freq: Status: Active Protocol: Document 10/27/23 08:07 NM (Rec: 10/27/23 10:15 NM [id number]) Balance Tests Single Limb Standing Single Limb- Right 2 seconds, min pain ~ PSIS Single Limb- Left 8 sec Tandem Tandem Standing 5 sec; difficulty achieving due to balance PT-OP-E Functional Tests Start: 10/24/23 16:59 Freq: Status: Active Protocol: Document 10/27/23 08:07 NM (Rec: 10/27/23 10:15 NM [id number]) Functional Tests 30 Second Sit to Stand Test Score 15 Comments irritates RLE; increased lordosis, B valgus Other forward flexion test Name of Test measured fingers to floor Score 0 (palms flat) Comment no pain reported with flexion PT-OP-F Manual Assessment Start: 10/24/23 16:59 Freq: Status: Active Protocol: Document 10/27/23 08:07 NM (Rec: 10/27/23 10:15 NM [id number]) Manual Assessments Soft Tissue Assessment Soft Tissue Mobility Assessment Increased tone B paraspinals, R>L. Demos slight spasm R lower paraspinals. Hamstring length R 165 deg, L 180 deg Joint Mobility Assessment Joint Mobility Assessment Step off. Increased mobility L4-L5, S1. Decreased mobility PSIS B. Decreased mobility PT-OP-G Mobility & Gait Start: 10/24/23 16:59 Freq: Status: Active Protocol: Document 10/27/23 08:07 NM (Rec: 10/27/23 10:15 NM [id number]) OP Gait Assessment Gait Gait Assistance Required: Independent Distance (Feet) 150 Assistive Devices Assistive Device None Gait Deviations General Gait Pattern Antalgic,Lateral Trunk Lean Factors Limiting Gait Function Factors Limiting Gait Function Decreased Activity Tolerance, Decreased Sensation,Decreased Strength,Pain Comments Gait Comments decreased trunk rotation, decrease R step PT-OP-H Neuro Start: 10/24/23 16:59 Freq: Status: Active Protocol: Document 10/27/23 08:07 NM (Rec: 10/27/23 10:15 NM [id number]) Sensation Evaluation Comments Summary Comments R light touch increased compared LLE except foot, decreased sensation PT-OP-J Posture/Palpation/Skin Start: 10/24/23 16:59 Freq: Status: Active Protocol: Document 10/27/23 08:07 NM (Rec: 10/27/23 10:15 NM [id number]) Posture Evaluation Position Standing Head/C-Spine Posture Forward Head L-Spine Posture Flattened,Decreased Lordosis Pelvis Posture Neutral Weight Distribution Balanced Knee Posture (L) Genu Valgus,(R) Genu Valgus Ankle/Foot Posture (L) Pronated,(R) Pronated Foot Arch (L) Low Arch,(R) Low Arch Palpation Assessment Location lumbar spine Palpation Location paraspinals, glutes, piriformis, spinous process Palpation Findings Soft Tissue Tightness Palpation Details Increased tone B paraspinals, muscle guarding of R>L. Tenderness L4-S1 with palpation of L4-S1. Spinous processes step down. Decreased mobility of thoracic spine PT-OP-K Range of Motion Start: 10/24/23 16:59 Freq: Status: Active Protocol: Document 10/27/23 08:07 NM (Rec: 10/27/23 10:15 NM [id number]) Lumbar Spine Range of Motion Lumbar Spine Active Percentage Flexion 100 Extension 25 Rotation Left 50 Rotation Right 50 Lateral Flexion Left 100 Lateral Flexion Right 75 Comments Pain worst with extension, radiates bilaterally. Pain with R lateral flexion in lower back and PSIS, L lateral flexion PSIS PT-OP-L Special Tests Start: 10/24/23 16:59 Freq: Status: Active Protocol: Document 10/27/23 08:07 NM (Rec: 10/27/23 10:15 NM [id number]) Special Tests Lumbar Spine Special Tests Osorio/Quadrant Test Results + Comments local L pain, R radicular symptoms Distraction Test Results + Comments with ppt Straight Leg Raise Test Results + Slump Test Results + PT-OP-M Strength Start: 10/24/23 16:59 Freq: Status: Active Protocol: Document 10/27/23 08:07 NM (Rec: 10/27/23 10:15 NM [id number]) Trunk Strength Trunk Manual Muscle Testing Flexion 4 Good Extension 3 Fair Rotation Left 3 Fair Rotation Right 3 Fair Lateral Flexion Left 4 Good Lateral Flexion Right 4 Good Comments pain with resisted extension in sitting Hip Strength Hip Manual Muscle Testing Right Flexion (L2) 3+ Fair+ Extension (S1) 3+ Fair+ Abduction 3+ Fair+ Adduction 4- Good- External Rotation 4- Good- Internal Rotation 4- Good- Comments Low back pain with hip flexion above hip height Left Flexion (L2) 4- Good- Extension (S1) 4- Good- Abduction 4- Good- Adduction 4- Good- External Rotation 4- Good- Internal Rotation 4- Good- Knee Strength Knee Manual Muscle Testing Right Flexion (S2) 4- Good- Extension (L3) 4- Good- Comments Increased sensitivity with testing Left Flexion (S2) 4- Good- Extension (L3) 4- Good- Ankle/Foot Strength Ankle and Foot Manual Muscle Testing Right Dorsiflexion (L4) 3+ Fair+ Plantarflexion (S1) 4- Good- Inversion 4- Good- Eversion (S1) 4- Good- Left Dorsiflexion (L4) 4 Good Plantarflexion (S1) 4 Good Inversion 4 Good Eversion (S1) 4 Good PT-OP-Q Treatments Start: 10/24/23 16:59 Freq: Status: Active Protocol: Document 10/29/23 08:16 NM (Rec: 10/29/23 09:03 NM [id number]) Therapeutic Exercises Supine Exercises LTR Supine Exercise Name core stabilization Side bilateral Reps/Minutes 60 ea slowly Comments cued for ppt, core stabilization with back on table cece stretch Supine Exercise Name hip flexor stretch Side bilateral Equipment Used ppt Reps/Minutes 2x30 ea Comments reports good stretch figure 4 stretch Supine Exercise Name knee flexed Side bilateral Reps/Minutes 2x30 ea Comments reports good stretch of hip ER , no pain but ppt for low back flexion-biased core Supine Exercise Name 1. rectus abdominus isometric, 2. oblique isometric Side bilateral Resistance isometric Equipment Used with ppt Reps/Minutes 1. 1x10 with 5 hold, 2. 1x10 with 5 hold Comments cued abdominal draw up/in, reports feels good TA activation Supine Exercise Name 1. TA activation, 2. unilateral marching Side bilateral Equipment Used with ppt; for 1. legs elevated on orange sb Reps/Minutes 1. 1x10 with 5 hold, 2. 1x15 ea Comments good TA activation; cued draw up/in knees to chest Supine Exercise Name 1. bilateral repeated movements with ppt Side bilateral Equipment Used small orange [place] ball Reps/Minutes 2x10 Comments cued ppt, PT hand for flat back Sidelying Exercises hip abduction Sidelying Exercise Name bottom knee bent Side bilateral Reps/Minutes 1x10 ea with brief 2 hold Comments cued for alignment, reports no pain; I feel it at her glutes Manual Therapy Treatment Soft Tissue Mobilization R hip Body Location glutes, piriformis Mobilization Type Rolling,Strumming Intensity/Depth Moderate Body Position Sidelying Comments Restrictions of R piriformis, glutes. Moderate rolling, strumming for pain reduction, muscle relaxation. Will trial MWM next tx for piriformis Joint Mobilizations lumbar spine Joint L1-L5 Direction L lateral flexion Grade II Body Position Lsidelying Reps/Duration 1x10 Comments L sidelying for R facet gapping using ribs and pelvis, for pain reduction. Reports good lateral flexion spinal stretch, nerve symptom relief Self-Care/Home Management Treatment Education Patient Education Home Exercise Program Other Education HEP: figure 4 stretch, double knee to chest repeated motions , sidelying hip abduction, lumbar self traction, supine marching PT-OP-T Assessment and Plan Start: 10/24/23 16:59 Freq: Status: Active Protocol: Document 10/29/23 08:16 NM (Rec: 10/29/23 09:03 NM [id number]) Physical Therapy Assessment Goals Four Impairment AROM Impairment R lateral flexion AROM 75% of L lateral flexion AROM Shift Manager Goal (LTG) Pt will increase R lateral flexion AROM >75% of L lateral flexion AROM in order to demonstrate improved spinal mobility to perform ADLs, dressing. LTG Duration 6 weeks Three Impairment strength Impairment trunk extension, rotation MMT 3/5 Shift Manager Goal (LTG) Pt will improve trunk extension and lateral flexion MMT to at least 4/5 in order to demonstrate increased trunk stabilization. LTG Duration 6 weeks Two Impairment function Impairment pain with ADLs involving flexion Short Term Goal (STG) Pt will demonstrate hip hinge mechanics for at least 5 reps in standing in order to perform flexion-based ADLs without increased pain STG Duration 3 weeks Shift Manager Goal (LTG) Pt will report pain of <4/10 when standing at sink performing dishes in order to demonstrate improved QOL and activity tolerance. LTG Duration 6 weeks One Impairment function Impairment Oswestry 18/50 Shift Manager Goal (LTG) Pt will decrease Oswestry score by at least 9 points (1 MCID) in order to demonstrate improved QOL and activity tolerance LTG Duration 6 weeks Assessment Summary Assessment Pt tolerated session well. Initiated flexion-biased core strengthening, lumbar stabilization, and hip stretching. Pt performs posterior pelvic tilt and transverse abdominis activation well with minimal cues. Progressed to unilateral marching for increased core stabilization and double knee to chest repeated motions. Added sidelying hip abduction for pelvic stability and hip strength. Manual treatment to decrease soft tissue restrictions of R glute/ piriformis and for lateral gapping to facilitate pain reduction and decrease nerve symptoms. Pt with good tolerance for soft tissue mobilization at glutes and mobilizations. However, unable to tolerate soft tissue mobilization to lumbar spine due to hx of spasms. Due to insurance limitations and future surgery, pt requesting 2 units visits 1x/wk. Pt would benefit from skilled PT for lumbar spine stabilization, hip mobility, and education regarding body mechanics and posture for symptom reduction and improved activity tolerance. Physical Therapy Plan Frequency and Duration Frequency of Treatment 1-2x/wk Duration of treatment (weeks) 6 Plan of Care Start Date 10/27/23 Plan of Care End Date 12/12/23 Therapeutic Interventions Therapeutic Interventions Balance Training,Coordination Training,Gait Training,Home Exercise Program,Joint Mobilizations,Manual Therapy, Neuromuscular Re-education, Orthotic/Prosthetic Management ,Patient/Caregiver Education, Self-Care/Home Management, Sensory Integration,Soft Tissue Mobilization,Taping, Therapeutic Activities, Therapeutic Exercises Modalities Cold Pack/Ice Massage,Electric Stimulation,Hot Packs, Ultrasound,Vasopneumatic Devices Other Therapeutic Interventions Manual traction only Next Visit Focus/Plan Next Note Type Treatment Note Next Visit Plan Progress flexion-biased core and TA activation, progress hip abd/glute/lumbar extensor strength Manual: MWM at piriformis, glutes; lumbar (avoid L4-L5 due to anterolisthesis) and hip mobilizations prn
--- NOTE | 2023-11-04 09:04 | PT.OTN ---
Current Diagnoses Radiculopathy, lumbar region (11/04/23) Physical Therapy Treatment Note PT-OP-A Visit Information Start: 10/24/23 16:59 Freq: Status: Active Protocol: Document 11/04/23 08:17 SP (Rec: 11/04/23 09:10 SP [id number]) Out-Patient Physical Therapy Visit Information Visit Information Visit Type Treatment Note Visit Note 10/18 Visit Start Time 08:17 Visit Stop Time 09:04 Visit Number 3 Number of BANKING SERVICES OFFICER Visits 1 Evaluation Information Evaluation Date 10/27/23 PT-OP-B Current Condition Start: 10/24/23 16:59 Freq: Status: Active Protocol: Document 10/27/23 08:07 NM (Rec: 10/27/23 10:15 NM [id number]) Current Condition History of Current Condition Onset Date 12 years Current Complaints pain, balance, weakness History of Current Condition Pt presents with low back pain , chronic condition. She has had low back pain for about 12 years, hx of pain after falling down stairs as child and heavy lifting. She has had several nerve conduction studies, R foot pain. 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 She receives botox for her thoracic spine and for migraines; she will not be able to receive botox for 2 months due to scheduling. She has R foot drop, gets swelling , progressively weaker. She has orthotics. Worse with uneven ground, sitting with knees elevated, squatting, positional changes. she has had several epidural steroids for pain, May and September 23. She also has pain in mid back. Reports changes in balance, hx of falls. 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 She reports utilized [employer] learned in past for suport proper form and body awareness. PT-OP-D Balance Start: 10/24/23 16:59 Freq: Status: Active Protocol: Document 10/27/23 08:07 NM (Rec: 10/27/23 10:15 NM [id number]) Balance Tests Single Limb Standing Single Limb- Right 2 seconds, min pain ~ PSIS Single Limb- Left 8 sec Tandem Tandem Standing 5 sec; difficulty achieving due to balance PT-OP-E Functional Tests Start: 10/24/23 16:59 Freq: Status: Active Protocol: Document 10/27/23 08:07 NM (Rec: 10/27/23 10:15 NM [id number]) Functional Tests 30 Second Sit to Stand Test Score 15 Comments irritates RLE; increased lordosis, B valgus Other forward flexion test Name of Test measured fingers to floor Score 0 (palms flat) Comment no pain reported with flexion PT-OP-F Manual Assessment Start: 10/24/23 16:59 Freq: Status: Active Protocol: Document 10/27/23 08:07 NM (Rec: 10/27/23 10:15 NM [id number]) Manual Assessments Soft Tissue Assessment Soft Tissue Mobility Assessment Increased tone B paraspinals, R>L. Demos slight spasm R lower paraspinals. Hamstring length R 165 deg, L 180 deg Joint Mobility Assessment Joint Mobility Assessment Step off. Increased mobility L4-L5, S1. Decreased mobility PSIS B. Decreased mobility PT-OP-G Mobility & Gait Start: 10/24/23 16:59 Freq: Status: Active Protocol: Document 10/27/23 08:07 NM (Rec: 10/27/23 10:15 NM [id number]) OP Gait Assessment Gait Gait Assistance Required: Independent Distance (Feet) 150 Assistive Devices Assistive Device None Gait Deviations General Gait Pattern Antalgic,Lateral Trunk Lean Factors Limiting Gait Function Factors Limiting Gait Function Decreased Activity Tolerance, Decreased Sensation,Decreased Strength,Pain Comments Gait Comments decreased trunk rotation, decrease R step PT-OP-H Neuro Start: 10/24/23 16:59 Freq: Status: Active Protocol: Document 10/27/23 08:07 NM (Rec: 10/27/23 10:15 NM [id number]) Sensation Evaluation Comments Summary Comments R light touch increased compared LLE except foot, decreased sensation PT-OP-J Posture/Palpation/Skin Start: 10/24/23 16:59 Freq: Status: Active Protocol: Document 10/27/23 08:07 NM (Rec: 10/27/23 10:15 NM [id number]) Posture Evaluation Position Standing Head/C-Spine Posture Forward Head L-Spine Posture Flattened,Decreased Lordosis Pelvis Posture Neutral Weight Distribution Balanced Knee Posture (L) Genu Valgus,(R) Genu Valgus Ankle/Foot Posture (L) Pronated,(R) Pronated Foot Arch (L) Low Arch,(R) Low Arch Palpation Assessment Location lumbar spine Palpation Location paraspinals, glutes, piriformis, spinous process Palpation Findings Soft Tissue Tightness Palpation Details Increased tone B paraspinals, muscle guarding of R>L. Tenderness L4-S1 with palpation of L4-S1. Spinous processes step down. Decreased mobility of thoracic spine PT-OP-K Range of Motion Start: 10/24/23 16:59 Freq: Status: Active Protocol: Document 10/27/23 08:07 NM (Rec: 10/27/23 10:15 NM [id number]) Lumbar Spine Range of Motion Lumbar Spine Active Percentage Flexion 100 Extension 25 Rotation Left 50 Rotation Right 50 Lateral Flexion Left 100 Lateral Flexion Right 75 Comments Pain worst with extension, radiates bilaterally. Pain with R lateral flexion in lower back and PSIS, L lateral flexion PSIS PT-OP-L Special Tests Start: 10/24/23 16:59 Freq: Status: Active Protocol: Document 10/27/23 08:07 NM (Rec: 10/27/23 10:15 NM [id number]) Special Tests Lumbar Spine Special Tests Osorio/Quadrant Test Results + Comments local L pain, R radicular symptoms Distraction Test Results + Comments with ppt Straight Leg Raise Test Results + Slump Test Results + PT-OP-M Strength Start: 10/24/23 16:59 Freq: Status: Active Protocol: Document 10/27/23 08:07 NM (Rec: 10/27/23 10:15 NM [id number]) Trunk Strength Trunk Manual Muscle Testing Flexion 4 Good Extension 3 Fair Rotation Left 3 Fair Rotation Right 3 Fair Lateral Flexion Left 4 Good Lateral Flexion Right 4 Good Comments pain with resisted extension in sitting Hip Strength Hip Manual Muscle Testing Right Flexion (L2) 3+ Fair+ Extension (S1) 3+ Fair+ Abduction 3+ Fair+ Adduction 4- Good- External Rotation 4- Good- Internal Rotation 4- Good- Comments Low back pain with hip flexion above hip height Left Flexion (L2) 4- Good- Extension (S1) 4- Good- Abduction 4- Good- Adduction 4- Good- External Rotation 4- Good- Internal Rotation 4- Good- Knee Strength Knee Manual Muscle Testing Right Flexion (S2) 4- Good- Extension (L3) 4- Good- Comments Increased sensitivity with testing Left Flexion (S2) 4- Good- Extension (L3) 4- Good- Ankle/Foot Strength Ankle and Foot Manual Muscle Testing Right Dorsiflexion (L4) 3+ Fair+ Plantarflexion (S1) 4- Good- Inversion 4- Good- Eversion (S1) 4- Good- Left Dorsiflexion (L4) 4 Good Plantarflexion (S1) 4 Good Inversion 4 Good Eversion (S1) 4 Good PT-OP-Q Treatments Start: 10/24/23 16:59 Freq: Status: Active Protocol: Document 11/04/23 08:17 SP (Rec: 11/04/23 09:10 SP [id number]) Therapeutic Exercises Supine Exercises LTR Supine Exercise Name core stabilization Side bilateral Equipment Used 55cm orange tball Reps/Minutes 60 ea slowly Comments cued for ppt, core stabilization with back on table cece stretch Supine Exercise Name hip flexor stretch Side bilateral Equipment Used opp LE KTC Reps/Minutes 2x30 ea Comments reports good stretch figure 4 stretch Supine Exercise Name knee flexed Side bilateral Equipment Used Lift bent knee toward chest stretching opp post/lat hip Reps/Minutes 2x30 ea Comments reports good stretch of hip ER , no pain but ppt for low back flexion-biased core Supine Exercise Name 1. rectus abdominus isometric, 2. oblique isometric Side bilateral Resistance isometric Equipment Used with ppt Reps/Minutes 1. 1x10 with 5 hold, 2. 1x10 with 5 hold Comments cued abdominal draw up/in, reports feels good TA activation Supine Exercise Name 1. TA activation, 2. unilateral marching Side bilateral Equipment Used with ppt; for 1. legs elevated on orange sb Reps/Minutes 1. 1x10 with 5 hold, 2. 1x15 ea pause 2 Comments good TA activation; cued draw up/in knees to chest Supine Exercise Name 1. KTC stretch DL 2. bilateral repeated movements with ppt Side bilateral Equipment Used small orange [place] ball Reps/Minutes 1. 30, 2. 2x10 Comments cued ppt improved flat back Sidelying Exercises hip abduction Sidelying Exercise Name bottom knee bent Side bilateral Equipment Used ed can use back to wall for target body position awareness Reps/Minutes 1x10 ea with brief 2 hold Comments cued for alignment, reports no pain; I feel it at her glutes Manual Therapy Treatment Soft Tissue Mobilization R hip Body Location B glutes, piriformis, QL, L psoas& iliacus Mobilization Type Rolling,Strumming,Sustained Pressure,Other Intensity/Depth Moderate Body Position prone & hooklying Comments Restrictions of R piriformis, glutes. Moderate rolling, MWM hip IR/ ER strumming for pain reduction, muscle relaxation. breath with psoas/iliacus between cece stretch PT-OP-T Assessment and Plan Start: 10/24/23 16:59 Freq: Status: Active Protocol: Document 11/04/23 08:17 SP (Rec: 11/04/23 09:10 SP [id number]) Physical Therapy Assessment Goals Four Impairment AROM Impairment R lateral flexion AROM 75% of L lateral flexion AROM Care Home Goal (LTG) Pt will increase R lateral flexion AROM >75% of L lateral flexion AROM in order to demonstrate improved spinal mobility to perform ADLs, dressing. LTG Duration 6 weeks Three Impairment strength Impairment trunk extension, rotation MMT 3/5 Care Home Goal (LTG) Pt will improve trunk extension and lateral flexion MMT to at least 4/5 in order to demonstrate increased trunk stabilization. LTG Duration 6 weeks Two Impairment function Impairment pain with ADLs involving flexion Short Term Goal (STG) Pt will demonstrate hip hinge mechanics for at least 5 reps in standing in order to perform flexion-based ADLs without increased pain STG Duration 3 weeks Care Home Goal (LTG) Pt will report pain of <4/10 when standing at sink performing dishes in order to demonstrate improved QOL and activity tolerance. LTG Duration 6 weeks One Impairment function Impairment Oswestry 18/50 Grill Cook Goal (LTG) Pt will decrease Oswestry score by at least 9 points (1 MCID) in order to demonstrate improved QOL and activity tolerance LTG Duration 6 weeks Assessment Summary Assessment Pt reported less tension over B gluteal, LB and L L hip flexor post manual and initiating MWM for reduction pain with core fac recruit. Cues for set up and proper form with HEP core ex and alignment corrections assisted reduction LB recruitment, recorrected piriformis stretch supported /c UE vs lift no UE support written in HO. Pt reports back felt better. Physical Therapy Plan Frequency and Duration Frequency of Treatment 1-2x/wk Duration of treatment (weeks) 6 Plan of Care Start Date 10/27/23 Plan of Care End Date 12/12/23 Therapeutic Interventions Therapeutic Interventions Balance Training,Coordination Training,Gait Training,Home Exercise Program,Joint Mobilizations,Manual Therapy, Neuromuscular Re-education, Orthotic/Prosthetic Management ,Patient/Caregiver Education, Self-Care/Home Management, Sensory Integration,Soft Tissue Mobilization,Taping, Therapeutic Activities, Therapeutic Exercises Modalities Cold Pack/Ice Massage,Electric Stimulation,Hot Packs, Ultrasound,Vasopneumatic Devices Other Therapeutic Interventions Manual traction only Next Visit Focus/Plan Next Note Type Treatment Note Next Visit Plan Continue HEP review TA and use tball. Progress flexion- biased core and TA activation, progress hip abd/glute/lumbar extensor strength Manual: MWM at piriformis, glutes; lumbar (avoid L4-L5 due to anterolisthesis) and hip mobilizations prn
--- NOTE | 2023-11-07 08:59 | PT.OTN ---
Current Diagnoses Radiculopathy, lumbar region (11/07/23) Physical Therapy Treatment Note PT-OP-A Visit Information Start: 10/24/23 16:59 Freq: Status: Active Protocol: Document 11/07/23 08:19 SP (Rec: 11/07/23 09:02 SP [id number]) Out-Patient Physical Therapy Visit Information Visit Information Visit Type Treatment Note Visit Note 11/15 pt in bathroom 2 min pre tx Visit Start Time 08:19 Visit Stop Time 08:59 Visit Number 4 Number of ACCESS REPRESENTATIVE Visits 2 Evaluation Information Evaluation Date 10/27/23 PT-OP-B Current Condition Start: 10/24/23 16:59 Freq: Status: Active Protocol: Document 10/27/23 08:07 NM (Rec: 10/27/23 10:15 NM [id number]) Current Condition History of Current Condition Onset Date 12 years Current Complaints pain, balance, weakness History of Current Condition Pt presents with low back pain , chronic condition. She has had low back pain for about 12 years, hx of pain after falling down stairs as child and heavy lifting. She has had several nerve conduction studies, R foot pain. 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 She receives botox for her thoracic spine and for migraines; she will not be able to receive botox for 2 months due to scheduling. She has R foot drop, gets swelling , progressively weaker. She has orthotics. Worse with uneven ground, sitting with knees elevated, squatting, positional changes. she has had several epidural steroids for pain, May and September 23. She also has pain in mid back. Reports changes in balance, hx of falls. Prior Treatments and Tests Hx PT PT-OP-C Subjective Start: 10/24/23 16:59 Freq: Status: Active Protocol: Document 11/07/23 08:19 SP (Rec: 11/07/23 09:02 SP [id number]) OP-PT Subjective Patient Comments Patient Comments Pt reports was sore after last tx and into the next day. She stated posterior B hips down laterally thighs and skips to calves sensitive to touch. Awaiting a call from can increase dose of Baclofen from 10 mg more if would help. PT-OP-D Balance Start: 10/24/23 16:59 Freq: Status: Active Protocol: Document 10/27/23 08:07 NM (Rec: 10/27/23 10:15 NM [id number]) Balance Tests Single Limb Standing Single Limb- Right 2 seconds, min pain ~ PSIS Single Limb- Left 8 sec Tandem Tandem Standing 5 sec; difficulty achieving due to balance PT-OP-E Functional Tests Start: 10/24/23 16:59 Freq: Status: Active Protocol: Document 10/27/23 08:07 NM (Rec: 10/27/23 10:15 NM [id number]) Functional Tests 30 Second Sit to Stand Test Score 15 Comments irritates RLE; increased lordosis, B valgus Other forward flexion test Name of Test measured fingers to floor Score 0 (palms flat) Comment no pain reported with flexion PT-OP-F Manual Assessment Start: 10/24/23 16:59 Freq: Status: Active Protocol: Document 10/27/23 08:07 NM (Rec: 10/27/23 10:15 NM [id number]) Manual Assessments Soft Tissue Assessment Soft Tissue Mobility Assessment Increased tone B paraspinals, R>L. Demos slight spasm R lower paraspinals. Hamstring length R 165 deg, L 180 deg Joint Mobility Assessment Joint Mobility Assessment Step off. Increased mobility L4-L5, S1. Decreased mobility PSIS B. Decreased mobility PT-OP-G Mobility & Gait Start: 10/24/23 16:59 Freq: Status: Active Protocol: Document 10/27/23 08:07 NM (Rec: 10/27/23 10:15 NM [id number]) OP Gait Assessment Gait Gait Assistance Required: Independent Distance (Feet) 150 Assistive Devices Assistive Device None Gait Deviations General Gait Pattern Antalgic,Lateral Trunk Lean Factors Limiting Gait Function Factors Limiting Gait Function Decreased Activity Tolerance, Decreased Sensation,Decreased Strength,Pain Comments Gait Comments decreased trunk rotation, decrease R step PT-OP-H Neuro Start: 10/24/23 16:59 Freq: Status: Active Protocol: Document 10/27/23 08:07 NM (Rec: 10/27/23 10:15 NM [id number]) Sensation Evaluation Comments Summary Comments R light touch increased compared LLE except foot, decreased sensation PT-OP-J Posture/Palpation/Skin Start: 10/24/23 16:59 Freq: Status: Active Protocol: Document 10/27/23 08:07 NM (Rec: 10/27/23 10:15 NM [id number]) Posture Evaluation Position Standing Head/C-Spine Posture Forward Head L-Spine Posture Flattened,Decreased Lordosis Pelvis Posture Neutral Weight Distribution Balanced Knee Posture (L) Genu Valgus,(R) Genu Valgus Ankle/Foot Posture (L) Pronated,(R) Pronated Foot Arch (L) Low Arch,(R) Low Arch Palpation Assessment Location lumbar spine Palpation Location paraspinals, glutes, piriformis, spinous process Palpation Findings Soft Tissue Tightness Palpation Details Increased tone B paraspinals, muscle guarding of R>L. Tenderness L4-S1 with palpation of L4-S1. Spinous processes step down. Decreased mobility of thoracic spine PT-OP-K Range of Motion Start: 10/24/23 16:59 Freq: Status: Active Protocol: Document 10/27/23 08:07 NM (Rec: 10/27/23 10:15 NM [id number]) Lumbar Spine Range of Motion Lumbar Spine Active Percentage Flexion 100 Extension 25 Rotation Left 50 Rotation Right 50 Lateral Flexion Left 100 Lateral Flexion Right 75 Comments Pain worst with extension, radiates bilaterally. Pain with R lateral flexion in lower back and PSIS, L lateral flexion PSIS PT-OP-L Special Tests Start: 10/24/23 16:59 Freq: Status: Active Protocol: Document 10/27/23 08:07 NM (Rec: 10/27/23 10:15 NM [id number]) Special Tests Lumbar Spine Special Tests Osorio/Quadrant Test Results + Comments local L pain, R radicular symptoms Distraction Test Results + Comments with ppt Straight Leg Raise Test Results + Slump Test Results + PT-OP-M Strength Start: 10/24/23 16:59 Freq: Status: Active Protocol: Document 10/27/23 08:07 NM (Rec: 10/27/23 10:15 NM [id number]) Trunk Strength Trunk Manual Muscle Testing Flexion 4 Good Extension 3 Fair Rotation Left 3 Fair Rotation Right 3 Fair Lateral Flexion Left 4 Good Lateral Flexion Right 4 Good Comments pain with resisted extension in sitting Hip Strength Hip Manual Muscle Testing Right Flexion (L2) 3+ Fair+ Extension (S1) 3+ Fair+ Abduction 3+ Fair+ Adduction 4- Good- External Rotation 4- Good- Internal Rotation 4- Good- Comments Low back pain with hip flexion above hip height Left Flexion (L2) 4- Good- Extension (S1) 4- Good- Abduction 4- Good- Adduction 4- Good- External Rotation 4- Good- Internal Rotation 4- Good- Knee Strength Knee Manual Muscle Testing Right Flexion (S2) 4- Good- Extension (L3) 4- Good- Comments Increased sensitivity with testing Left Flexion (S2) 4- Good- Extension (L3) 4- Good- Ankle/Foot Strength Ankle and Foot Manual Muscle Testing Right Dorsiflexion (L4) 3+ Fair+ Plantarflexion (S1) 4- Good- Inversion 4- Good- Eversion (S1) 4- Good- Left Dorsiflexion (L4) 4 Good Plantarflexion (S1) 4 Good Inversion 4 Good Eversion (S1) 4 Good PT-OP-Q Treatments Start: 10/24/23 16:59 Freq: Status: Active Protocol: Document 11/07/23 08:19 SP (Rec: 11/07/23 09:02 SP [id number]) Therapeutic Exercises Supine Exercises cece stretch Supine Exercise Name hip flexor stretch Side bilateral Equipment Used opp LE KTC Reps/Minutes 2x30 ea Comments reports good stretch figure 4 stretch Supine Exercise Name knee flexed Side bilateral Equipment Used Lift bent knee toward chest stretching opp post/lat hip Reps/Minutes 2x30 ea Comments reports good stretch of hip ER , no pain but ppt for low back flexion-biased core Supine Exercise Name 1. rectus abdominus isometric, 2. oblique isometric Side bilateral Resistance isometric Equipment Used with ppt Reps/Minutes 1. 1x10 with 5 hold, 2. 1x10 with 5 hold Comments cued abdominal draw up/in, reports feels good TA activation Supine Exercise Name 1. TA activation, 2. unilateral marching Side bilateral Equipment Used with ppt; for 1. legs elevated on orange sb Reps/Minutes 1. 1x10 with 5 hold, 2. 1x15 ea pause 2 Comments good TA activation; cued draw up/in knees to chest Supine Exercise Name 1. DKTC stretch 2. resisted core against BUEs 3. KTC AROM hip/knee Side bilateral Equipment Used small orange macedonian ball Reps/Minutes 1. 30 stretch /c BUE support, 2. 10 SH x10 LEs on ball Comments cued ppt improved flat back Sidelying Exercises hip abduction Sidelying Exercise Name bottom knee bent Side bilateral Reps/Minutes 1x10 ea with 2 hold Comments improved alignment, I feel it in my glut Other Exercises pelvic realignment Other Exercise Name R anterior tilt (R knee higher hooklying) , L post tilt (L knee lower hookl Resistance declined HO 11/07/23 Reps/Minutes 5 SH x3 reps each- good even/ level corrections for home carryover Comments R HS isometric at 90/90, L core 90/90 hip flexor thigh isometric Manual Therapy Treatment Soft Tissue Mobilization R hip Body Location B glutes, piriformis, QL Mobilization Type Rolling,Strumming,Sustained Pressure,Other Intensity/Depth Moderate Body Position prone & hooklying Comments Restrictions of L>R piriformis , glutes. Moderate rolling, MWM hip IR/ ER for pain reduction, muscle relaxation. PT-OP-T Assessment and Plan Start: 10/24/23 16:59 Freq: Status: Active Protocol: Document 11/07/23 08:19 SP (Rec: 11/07/23 09:02 SP [id number]) Physical Therapy Assessment Goals Four Impairment AROM Impairment R lateral flexion AROM 75% of L lateral flexion AROM [facility] Goal (LTG) Pt will increase R lateral flexion AROM >75% of L lateral flexion AROM in order to demonstrate improved spinal mobility to perform ADLs, dressing. LTG Duration 6 weeks Three Impairment strength Impairment trunk extension, rotation MMT 3/5 [employer] Goal (LTG) Pt will improve trunk extension and lateral flexion MMT to at least 4/5 in order to demonstrate increased trunk stabilization. LTG Duration 6 weeks Two Impairment function Impairment pain with ADLs involving flexion Short Term Goal (STG) Pt will demonstrate hip hinge mechanics for at least 5 reps in standing in order to perform flexion-based ADLs without increased pain STG Duration 3 weeks [facility] Goal (LTG) Pt will report pain of <4/10 when standing at sink performing dishes in order to demonstrate improved QOL and activity tolerance. LTG Duration 6 weeks One Impairment function Impairment Oswestry 18/50 [employer] Goal (LTG) Pt will decrease Oswestry score by at least 9 points (1 MCID) in order to demonstrate improved QOL and activity tolerance LTG Duration 6 weeks Assessment Summary Assessment Pt reported lessened back/ piriformis and HS tension left post manual. Instructed self pelvic alignment when notices knee height difference higher on R which also showed pelvic alignment anterior tilt on R, isometric hipext R/hipflex L which gave relief. She relief LB with stretching, resisted DKTC stretch then isometric against BUEs then AROM TA support tolerant range. CUes for LE positioning for fig 4 to allow leg relax over opp orellana R better response change from innner thigh. She reports less LB soreness (no scale rating provided) end tx then when arrived, requested HOs for the DKTC isometric hip flexion (BLEs on ball) was very supportive to her back. Declined modality, need be somewhere. Physical Therapy Plan Frequency and Duration Frequency of Treatment 1-2x/wk Duration of treatment (weeks) 6 Plan of Care Start Date 10/27/23 Plan of Care End Date 12/12/23 Therapeutic Interventions Therapeutic Interventions Balance Training,Coordination Training,Gait Training,Home Exercise Program,Joint Mobilizations,Manual Therapy, Neuromuscular Re-education, Orthotic/Prosthetic Management ,Patient/Caregiver Education, Self-Care/Home Management, Sensory Integration,Soft Tissue Mobilization,Taping, Therapeutic Activities, Therapeutic Exercises Modalities Cold Pack/Ice Massage,Electric Stimulation,Hot Packs, Ultrasound,Vasopneumatic Devices Other Therapeutic Interventions Manual traction only Next Visit Focus/Plan Next Note Type Treatment Note Next Visit Plan Continue HEP review TA and use tball. Progress flexion- biased core and TA activation, progress hip abd/glute/lumbar extensor strength Manual: MWM at piriformis, glutes; lumbar (avoid L4-L5 due to anterolisthesis) and hip mobilizations prn
--- NOTE | 2023-11-12 13:06 | PT.OTN ---
Current Diagnoses Radiculopathy, lumbar region (11/12/23) Physical Therapy Treatment Note PT-OP-A Visit Information Start: 10/24/23 16:59 Freq: Status: Active Protocol: Document 11/12/23 10:31 NM (Rec: 11/12/23 11:16 NM [id number]) Out-Patient Physical Therapy Visit Information Visit Information Visit Type Treatment Note Visit Note 06/17 units Visit Start Time 10:30 Visit Stop Time 11:05 Visit Number 5 Evaluation Information Evaluation Date 10/27/23 PT-OP-B Current Condition Start: 10/24/23 16:59 Freq: Status: Active Protocol: Document 10/27/23 08:07 NM (Rec: 10/27/23 10:15 NM [id number]) Current Condition History of Current Condition Onset Date 12 years Current Complaints pain, balance, weakness History of Current Condition Pt presents with low back pain , chronic condition. She has had low back pain for about 12 years, hx of pain after falling down stairs as child and heavy lifting. She has had several nerve conduction studies, R foot pain. 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 She receives botox for her thoracic spine and for migraines; she will not be able to receive botox for 2 months due to scheduling. She has R foot drop, gets swelling , progressively weaker. She has orthotics. Worse with uneven ground, sitting with knees elevated, squatting, positional changes. she has had several epidural steroids for pain, May and September 23. She also has pain in mid back. Reports changes in balance, hx of falls. Prior Treatments and Tests Hx PT PT-OP-C Subjective Start: 10/24/23 16:59 Freq: Status: Active Protocol: Document 11/12/23 10:31 NM (Rec: 11/12/23 11:16 NM [id number]) OP-PT Subjective Patient Comments Patient Comments Pt reports compliance with HEP , reports soreness post HEP and sessions. Pt has been able to do light yard work without issue. Pt reports improvement in symptoms but states they continue to occur. PT-OP-D Balance Start: 10/24/23 16:59 Freq: Status: Active Protocol: Document 10/27/23 08:07 NM (Rec: 10/27/23 10:15 NM [id number]) Balance Tests Single Limb Standing Single Limb- Right 2 seconds, min pain ~ PSIS Single Limb- Left 8 sec Tandem Tandem Standing 5 sec; difficulty achieving due to balance PT-OP-E Functional Tests Start: 10/24/23 16:59 Freq: Status: Active Protocol: Document 10/27/23 08:07 NM (Rec: 10/27/23 10:15 NM [id number]) Functional Tests 30 Second Sit to Stand Test Score 15 Comments irritates RLE; increased lordosis, B valgus Other forward flexion test Name of Test measured fingers to floor Score 0 (palms flat) Comment no pain reported with flexion PT-OP-F Manual Assessment Start: 10/24/23 16:59 Freq: Status: Active Protocol: Document 10/27/23 08:07 NM (Rec: 10/27/23 10:15 NM [id number]) Manual Assessments Soft Tissue Assessment Soft Tissue Mobility Assessment Increased tone B paraspinals, R>L. Demos slight spasm R lower paraspinals. Hamstring length R 165 deg, L 180 deg Joint Mobility Assessment Joint Mobility Assessment Step off. Increased mobility L4-L5, S1. Decreased mobility PSIS B. Decreased mobility PT-OP-G Mobility & Gait Start: 10/24/23 16:59 Freq: Status: Active Protocol: Document 10/27/23 08:07 NM (Rec: 10/27/23 10:15 NM [id number]) OP Gait Assessment Gait Gait Assistance Required: Independent Distance (Feet) 150 Assistive Devices Assistive Device None Gait Deviations General Gait Pattern Antalgic,Lateral Trunk Lean Factors Limiting Gait Function Factors Limiting Gait Function Decreased Activity Tolerance, Decreased Sensation,Decreased Strength,Pain Comments Gait Comments decreased trunk rotation, decrease R step PT-OP-H Neuro Start: 10/24/23 16:59 Freq: Status: Active Protocol: Document 10/27/23 08:07 NM (Rec: 10/27/23 10:15 NM [id number]) Sensation Evaluation Comments Summary Comments R light touch increased compared LLE except foot, decreased sensation PT-OP-J Posture/Palpation/Skin Start: 10/24/23 16:59 Freq: Status: Active Protocol: Document 10/27/23 08:07 NM (Rec: 10/27/23 10:15 NM [id number]) Posture Evaluation Position Standing Head/C-Spine Posture Forward Head L-Spine Posture Flattened,Decreased Lordosis Pelvis Posture Neutral Weight Distribution Balanced Knee Posture (L) Genu Valgus,(R) Genu Valgus Ankle/Foot Posture (L) Pronated,(R) Pronated Foot Arch (L) Low Arch,(R) Low Arch Palpation Assessment Location lumbar spine Palpation Location paraspinals, glutes, piriformis, spinous process Palpation Findings Soft Tissue Tightness Palpation Details Increased tone B paraspinals, muscle guarding of R>L. Tenderness L4-S1 with palpation of L4-S1. Spinous processes step down. Decreased mobility of thoracic spine PT-OP-K Range of Motion Start: 10/24/23 16:59 Freq: Status: Active Protocol: Document 10/27/23 08:07 NM (Rec: 10/27/23 10:15 NM [id number]) Lumbar Spine Range of Motion Lumbar Spine Active Percentage Flexion 100 Extension 25 Rotation Left 50 Rotation Right 50 Lateral Flexion Left 100 Lateral Flexion Right 75 Comments Pain worst with extension, radiates bilaterally. Pain with R lateral flexion in lower back and PSIS, L lateral flexion PSIS PT-OP-L Special Tests Start: 10/24/23 16:59 Freq: Status: Active Protocol: Document 10/27/23 08:07 NM (Rec: 10/27/23 10:15 NM [id number]) Special Tests Lumbar Spine Special Tests Osorio/Quadrant Test Results + Comments local L pain, R radicular symptoms Distraction Test Results + Comments with ppt Straight Leg Raise Test Results + Slump Test Results + PT-OP-M Strength Start: 10/24/23 16:59 Freq: Status: Active Protocol: Document 10/27/23 08:07 NM (Rec: 10/27/23 10:15 NM [id number]) Trunk Strength Trunk Manual Muscle Testing Flexion 4 Good Extension 3 Fair Rotation Left 3 Fair Rotation Right 3 Fair Lateral Flexion Left 4 Good Lateral Flexion Right 4 Good Comments pain with resisted extension in sitting Hip Strength Hip Manual Muscle Testing Right Flexion (L2) 3+ Fair+ Extension (S1) 3+ Fair+ Abduction 3+ Fair+ Adduction 4- Good- External Rotation 4- Good- Internal Rotation 4- Good- Comments Low back pain with hip flexion above hip height Left Flexion (L2) 4- Good- Extension (S1) 4- Good- Abduction 4- Good- Adduction 4- Good- External Rotation 4- Good- Internal Rotation 4- Good- Knee Strength Knee Manual Muscle Testing Right Flexion (S2) 4- Good- Extension (L3) 4- Good- Comments Increased sensitivity with testing Left Flexion (S2) 4- Good- Extension (L3) 4- Good- Ankle/Foot Strength Ankle and Foot Manual Muscle Testing Right Dorsiflexion (L4) 3+ Fair+ Plantarflexion (S1) 4- Good- Inversion 4- Good- Eversion (S1) 4- Good- Left Dorsiflexion (L4) 4 Good Plantarflexion (S1) 4 Good Inversion 4 Good Eversion (S1) 4 Good PT-OP-Q Treatments Start: 10/24/23 16:59 Freq: Status: Active Protocol: Document 11/12/23 10:31 NM (Rec: 11/12/23 11:16 NM [id number]) Therapeutic Exercises Supine Exercises glute/hamstring isometric Supine Exercise Name 90/90 position with feet on wall Side bilateral Resistance isometric Equipment Used 25% reported force through heels Reps/Minutes 1x8 with 5 hold Comments pain free LTR Supine Exercise Name core stabilization Side bilateral Equipment Used 55cm orange tball Reps/Minutes 60 ea slowly Comments cued for ppt, core stabilization with back on table TA activation Supine Exercise Name B october, from /90 Side bilateral Equipment Used with PPT Reps/Minutes 1x8 ea Comments good TrA and ppt, no pain knees to chest Supine Exercise Name DKTC stretch Side bilateral Reps/Minutes 1x10 with brief stretch Comments cued ppt improved flat back Sidelying Exercises clams Side bilateral Resistance AROM Reps/Minutes 1x10 Comments cued no fwd hip rotation compensation; R weaker than L, pain free hip abduction Sidelying Exercise Name bottom knee extended Side bilateral Reps/Minutes 1x10 ea with 2 hold Comments pain free Other Exercises pelvic realignment Other Exercise Name R anterior tilt (R knee higher hooklying) , L post tilt (L knee lower hookl Resistance reviewed- educated on 25% force for isometric Reps/Minutes 5 SH x3 reps each- good even/ level corrections for home carryover Comments R HS isometric at 90/90, L core 90/90 hip flexor thigh isometric, pain free Therapeutic Activity Therapeutic Activity squat Reps/Minutes 2x8 Comments to chair Self tactile cues at hips for hinge, improved with reps, pain free hip hinge Comments 1. Tactile cue with foam roller on thighs to create hip hinge, improved with reps. PT facilitate initially at hips, 1x10 2. dowel: AROM 2x8. PT facilitate at hips and scapula for shoulder setting Pain free Self-Care/Home Management Treatment Education Patient Education Body Mechanics,Home Exercise Program,Joint Protection, Posture Other Education 3 minutes - HEP: clams, hip hinge, squat. Educated on body mechanics with ADLs, yard work, joint protection during standing/exercises/ADLs. Emphasize hip hinge. Modalities and soft tissue mobilization for pain relief review PT-OP-T Assessment and Plan Start: 10/24/23 16:59 Freq: Status: Active Protocol: Document 11/12/23 10:31 NM (Rec: 11/12/23 11:16 NM [id number]) Physical Therapy Assessment Goals Four Impairment AROM Impairment R lateral flexion AROM 75% of L lateral flexion AROM Mcc Goal (LTG) Pt will increase R lateral flexion AROM >75% of L lateral flexion AROM in order to demonstrate improved spinal mobility to perform ADLs, dressing. LTG Duration 6 weeks Three Impairment strength Impairment trunk extension, rotation MMT 3/5 Mcc Goal (LTG) Pt will improve trunk extension and lateral flexion MMT to at least 4/5 in order to demonstrate increased trunk stabilization. LTG Duration 6 weeks Two Impairment function Impairment pain with ADLs involving flexion Short Term Goal (STG) Pt will demonstrate hip hinge mechanics for at least 5 reps in standing in order to perform flexion-based ADLs without increased pain STG Duration 3 weeks Director Of Email Marketing Goal (LTG) Pt will report pain of <4/10 when standing at sink performing dishes in order to demonstrate improved QOL and activity tolerance. LTG Duration 6 weeks One Impairment function Impairment Oswestry 18/50 Mcc Goal (LTG) Pt will decrease Oswestry score by at least 9 points (1 MCID) in order to demonstrate improved QOL and activity tolerance LTG Duration 6 weeks Assessment Summary Assessment Pt saw Dr. Arnold yesterday, she is planning to have a lumbar fusion in future after PT sessions end; wanting to continue with PT despite insurance limitations and probable surgery upcoming. Tolerated session well without any pain. Continued with flexion-biased core bracing and stabilization. Initiated strengthening of hip rotators and abductors to facilitate glute/piriformis length after pt performs soft tissue mobilization. Progressed to deadlift and squat for increased glute activation and for body mechanics training. PT assisting manually for hip hinge initially, improved with reps. Pt pain free with both deadlift and squats. Pt wanting to maximize benefits for insurance, so 2 unit session 1x/wk. She is compliant with HEP, reporting improvement in activity levels despite high occurrence of symptoms. Pt would benefit from skilled PT for symptom reduction, core and lumbar stabilization and body mechanics training to improve QOL and activity tolerance. Physical Therapy Plan Frequency and Duration Frequency of Treatment 1-2x/wk Duration of treatment (weeks) 6 Plan of Care Start Date 10/27/23 Plan of Care End Date 12/12/23 Therapeutic Interventions Therapeutic Interventions Balance Training,Coordination Training,Gait Training,Home Exercise Program,Joint Mobilizations,Manual Therapy, Neuromuscular Re-education, Orthotic/Prosthetic Management ,Patient/Caregiver Education, Self-Care/Home Management, Sensory Integration,Soft Tissue Mobilization,Taping, Therapeutic Activities, Therapeutic Exercises Modalities Cold Pack/Ice Massage,Electric Stimulation,Hot Packs, Ultrasound,Vasopneumatic Devices Other Therapeutic Interventions Manual traction only Next Visit Focus/Plan Next Note Type Treatment Note Next Visit Plan Review deadlift/hip hinge and squat, 3 way hip. pelvic realignment prn Continue HEP review TA and use tball. Progress flexion- biased core and TA activation, progress hip abd/glute/lumbar extensor strength Manual: MWM at piriformis, glutes; lumbar (avoid L4-L5 due to anterolisthesis) and hip mobilizations prn
--- NOTE | 2023-11-19 12:28 | PT.OTN ---
Current Diagnoses Radiculopathy, lumbar region (11/19/23) Physical Therapy Treatment Note PT-OP-A Visit Information Start: 10/24/23 16:59 Freq: Status: Active Protocol: Document 11/19/23 09:45 NBM (Rec: 11/19/23 10:37 NBM [id number]) Out-Patient Physical Therapy Visit Information Visit Information Visit Type Treatment Note Visit Note 08/17 units Visit Start Time 09:50 Visit Stop Time 10:27 Visit Number 6 Number of ROBOTYPE OPERATOR Visits 1 Evaluation Information Evaluation Date 10/27/23 PT-OP-B Current Condition Start: 10/24/23 16:59 Freq: Status: Active Protocol: Document 10/27/23 08:07 NM (Rec: 10/27/23 10:15 NM [id number]) Current Condition History of Current Condition Onset Date 12 years Current Complaints pain, balance, weakness History of Current Condition Pt presents with low back pain , chronic condition. She has had low back pain for about 12 years, hx of pain after falling down stairs as child and heavy lifting. She has had several nerve conduction studies, R foot pain. 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 She receives botox for her thoracic spine and for migraines; she will not be able to receive botox for 2 months due to scheduling. She has R foot drop, gets swelling , progressively weaker. She has orthotics. Worse with uneven ground, sitting with knees elevated, squatting, positional changes. she has had several epidural steroids for pain, May and September 23. She also has pain in mid back. Reports changes in balance, hx of falls. Prior Treatments and Tests Hx PT PT-OP-C Subjective Start: 10/24/23 16:59 Freq: Status: Active Protocol: Document 11/19/23 09:45 NBM (Rec: 11/19/23 10:37 NB [id number]) OP-PT Subjective Patient Comments Patient Comments Cassandra reports this past week has been her best week so far and she has no pain at this moment. She wants to review some of the ex's. She did gardenining with squatting yesterday with only one twinge of nerve pain w/ walking and pushing uphill and being mindful of form, and muscle soreness later in the day. She 's being more mindful of movements and stepping with her heels. She's engaging her stomach before she turns or twists . I really do not want to have surgery. Patient Reported Progress Improving PT-OP-D Balance Start: 10/24/23 16:59 Freq: Status: Active Protocol: Document 10/27/23 08:07 NM (Rec: 10/27/23 10:15 NM [id number]) Balance Tests Single Limb Standing Single Limb- Right 2 seconds, min pain ~ PSIS Single Limb- Left 8 sec Tandem Tandem Standing 5 sec; difficulty achieving due to balance PT-OP-E Functional Tests Start: 10/24/23 16:59 Freq: Status: Active Protocol: Document 10/27/23 08:07 NM (Rec: 10/27/23 10:15 NM [id number]) Functional Tests 30 Second Sit to Stand Test Score 15 Comments irritates RLE; increased lordosis, B valgus Other forward flexion test Name of Test measured fingers to floor Score 0 (palms flat) Comment no pain reported with flexion PT-OP-F Manual Assessment Start: 10/24/23 16:59 Freq: Status: Active Protocol: Document 10/27/23 08:07 NM (Rec: 10/27/23 10:15 NM [id number]) Manual Assessments Soft Tissue Assessment Soft Tissue Mobility Assessment Increased tone B paraspinals, R>L. Demos slight spasm R lower paraspinals. Hamstring length R 165 deg, L 180 deg Joint Mobility Assessment Joint Mobility Assessment Step off. Increased mobility L4-L5, S1. Decreased mobility PSIS B. Decreased mobility PT-OP-G Mobility & Gait Start: 10/24/23 16:59 Freq: Status: Active Protocol: Document 10/27/23 08:07 NM (Rec: 10/27/23 10:15 NM [id number]) OP Gait Assessment Gait Gait Assistance Required: Independent Distance (Feet) 150 Assistive Devices Assistive Device None Gait Deviations General Gait Pattern Antalgic,Lateral Trunk Lean Factors Limiting Gait Function Factors Limiting Gait Function Decreased Activity Tolerance, Decreased Sensation,Decreased Strength,Pain Comments Gait Comments decreased trunk rotation, decrease R step PT-OP-H Neuro Start: 10/24/23 16:59 Freq: Status: Active Protocol: Document 10/27/23 08:07 NM (Rec: 10/27/23 10:15 NM [id number]) Sensation Evaluation Comments Summary Comments R light touch increased compared LLE except foot, decreased sensation PT-OP-J Posture/Palpation/Skin Start: 10/24/23 16:59 Freq: Status: Active Protocol: Document 10/27/23 08:07 NM (Rec: 10/27/23 10:15 NM [id number]) Posture Evaluation Position Standing Head/C-Spine Posture Forward Head L-Spine Posture Flattened,Decreased Lordosis Pelvis Posture Neutral Weight Distribution Balanced Knee Posture (L) Genu Valgus,(R) Genu Valgus Ankle/Foot Posture (L) Pronated,(R) Pronated Foot Arch (L) Low Arch,(R) Low Arch Palpation Assessment Location lumbar spine Palpation Location paraspinals, glutes, piriformis, spinous process Palpation Findings Soft Tissue Tightness Palpation Details Increased tone B paraspinals, muscle guarding of R>L. Tenderness L4-S1 with palpation of L4-S1. Spinous processes step down. Decreased mobility of thoracic spine PT-OP-K Range of Motion Start: 10/24/23 16:59 Freq: Status: Active Protocol: Document 10/27/23 08:07 NM (Rec: 10/27/23 10:15 NM [id number]) Lumbar Spine Range of Motion Lumbar Spine Active Percentage Flexion 100 Extension 25 Rotation Left 50 Rotation Right 50 Lateral Flexion Left 100 Lateral Flexion Right 75 Comments Pain worst with extension, radiates bilaterally. Pain with R lateral flexion in lower back and PSIS, L lateral flexion PSIS PT-OP-L Special Tests Start: 10/24/23 16:59 Freq: Status: Active Protocol: Document 10/27/23 08:07 NM (Rec: 10/27/23 10:15 NM [id number]) Special Tests Lumbar Spine Special Tests Osorio/Quadrant Test Results + Comments local L pain, R radicular symptoms Distraction Test Results + Comments with ppt Straight Leg Raise Test Results + Slump Test Results + PT-OP-M Strength Start: 10/24/23 16:59 Freq: Status: Active Protocol: Document 10/27/23 08:07 NM (Rec: 10/27/23 10:15 NM [id number]) Trunk Strength Trunk Manual Muscle Testing Flexion 4 Good Extension 3 Fair Rotation Left 3 Fair Rotation Right 3 Fair Lateral Flexion Left 4 Good Lateral Flexion Right 4 Good Comments pain with resisted extension in sitting Hip Strength Hip Manual Muscle Testing Right Flexion (L2) 3+ Fair+ Extension (S1) 3+ Fair+ Abduction 3+ Fair+ Adduction 4- Good- External Rotation 4- Good- Internal Rotation 4- Good- Comments Low back pain with hip flexion above hip height Left Flexion (L2) 4- Good- Extension (S1) 4- Good- Abduction 4- Good- Adduction 4- Good- External Rotation 4- Good- Internal Rotation 4- Good- Knee Strength Knee Manual Muscle Testing Right Flexion (S2) 4- Good- Extension (L3) 4- Good- Comments Increased sensitivity with testing Left Flexion (S2) 4- Good- Extension (L3) 4- Good- Ankle/Foot Strength Ankle and Foot Manual Muscle Testing Right Dorsiflexion (L4) 3+ Fair+ Plantarflexion (S1) 4- Good- Inversion 4- Good- Eversion (S1) 4- Good- Left Dorsiflexion (L4) 4 Good Plantarflexion (S1) 4 Good Inversion 4 Good Eversion (S1) 4 Good PT-OP-Q Treatments Start: 10/24/23 16:59 Freq: Status: Active Protocol: Document 11/19/23 09:45 NB (Rec: 11/19/23 10:37 [facility] [id number]) Therapeutic Exercises Supine Exercises glute/hamstring isometric Supine Exercise Name position with feet on wall Side bilateral Resistance isometric Equipment Used 25% reported force through heels Reps/Minutes 1x8 with 5 hold Comments pain free, pt reports activates nystagmus wo pillow cece stretch Supine Exercise Name hip flexor stretch Side bilateral Equipment Used opp LE KTC Reps/Minutes 3x30 ea Comments reports good stretch; focus on core engagement figure 4 stretch Supine Exercise Name knee flexed Side bilateral Equipment Used Lift bent knee toward chest stretching opp post/lat hip Reps/Minutes 2x30 ea Comments reports good stretch of hip ER , no pain but ppt for low back flexion-biased core Supine Exercise Name 1. rectus abdominus isometric, 2. oblique isometric Side bilateral Resistance isometric Equipment Used with ppt Reps/Minutes 1. 1x10 with 5 hold, 2. 1x10 with 5 hold Comments cued abdominal draw up/in, reports feels good TA activation Supine Exercise Name B october, from 90/90 Side bilateral Equipment Used with PPT Reps/Minutes 1x8 ea Comments cued for slower pacing for TrA , good ppt, no pain knees to chest Supine Exercise Name [facility] stretch Side bilateral Reps/Minutes 1x10 with brief stretch Comments cued ppt improved flat back Prone Exercises Quadruped Hip Extension Prone Exercise Name Palms>fists palm in Side bilateral Reps/Minutes x10 ea Therapeutic Activity Therapeutic Activity squat Reps/Minutes 2x10 Comments to plinth Self tactile cues at hips for hinge, improved with reps, pain free hip hinge Comments 1. Visual demo improved with reps; cued hip hinge. 1x10 ea 0#>2#>3# PT-OP-T Assessment and Plan Start: 10/24/23 16:59 Freq: Status: Active Protocol: Document 11/19/23 09:45 NBM (Rec: 11/19/23 10:37 NBM [id number]) Physical Therapy Assessment Goals Four Impairment AROM Impairment R lateral flexion AROM 75% of L lateral flexion AROM Fountain Operator Goal (LTG) Pt will increase R lateral flexion AROM >75% of L lateral flexion AROM in order to demonstrate improved spinal mobility to perform ADLs, dressing. LTG Duration 6 weeks Three Impairment strength Impairment trunk extension, rotation MMT 3/5 Fdc Goal (LTG) Pt will improve trunk extension and lateral flexion MMT to at least 4/5 in order to demonstrate increased trunk stabilization. LTG Duration 6 weeks Two Impairment function Impairment pain with ADLs involving flexion Short Term Goal (STG) Pt will demonstrate hip hinge mechanics for at least 5 reps in standing in order to perform flexion-based ADLs without increased pain STG Duration 3 weeks Fdc Goal (LTG) Pt will report pain of <4/10 when standing at sink performing dishes in order to demonstrate improved QOL and activity tolerance. LTG Duration 6 weeks One Impairment function Impairment Oswestry 18/50 Fountain Operator Goal (LTG) Pt will decrease Oswestry score by at least 9 points (1 MCID) in order to demonstrate improved QOL and activity tolerance. LTG Duration 6 weeks Assessment Summary Assessment Treatment focus on stretching and hip hinge w/ functional movement. Pt requires visual cues for hip hinge w/ chair squats and RDLs but demonstrates improved performance and self-awareness w/ cueing and repetition. Pt is cued for slower pacing w/ supine marches and hip hinge. She tolerates RDL progression to 3#s without pain and with positive feedback response. Short session per pt/PT agreement. Physical Therapy Plan Frequency and Duration Frequency of Treatment 1-2x/wk Duration of treatment (weeks) 6 Plan of Care Start Date 10/27/23 Plan of Care End Date 12/12/23 Therapeutic Interventions Therapeutic Interventions Balance Training,Coordination Training,Gait Training,Home Exercise Program,Joint Mobilizations,Manual Therapy, Neuromuscular Re-education, Orthotic/Prosthetic Management ,Patient/Caregiver Education, Self-Care/Home Management, Sensory Integration,Soft Tissue Mobilization,Taping, Therapeutic Activities, Therapeutic Exercises Modalities Cold Pack/Ice Massage,Electric Stimulation,Hot Packs, Ultrasound,Vasopneumatic Devices Other Therapeutic Interventions Manual traction only Next Visit Focus/Plan Next Note Type Treatment Note Next Visit Plan Review deadlift/hip hinge and squat, 3 way hip. pelvic realignment prn Continue HEP review TA and use tball. Progress flexion- biased core and TA activation, progress hip abd/glute/lumbar extensor strength Manual: MWM at piriformis, glutes; lumbar (avoid L4-L5 due to anterolisthesis) and hip mobilizations prn
--- NOTE | 2023-11-26 16:56 | PT.OTN ---
Current Diagnoses Radiculopathy, lumbar region (11/26/23) Physical Therapy Treatment Note PT-OP-A Visit Information Start: 10/24/23 16:59 Freq: Status: Active Protocol: Document 11/26/23 11:22 NBM (Rec: 11/26/23 12:18 [facility] [id number]) Out-Patient Physical Therapy Visit Information Visit Information Visit Type Treatment Note Visit Note units Visit Start Time 11:22 Visit Stop Time 11:59 Visit Number 7 Number of ENGINE PILOT Visits 2 PT-OP-B Current Condition Start: 10/24/23 16:59 Freq: Status: Active Protocol: Document 10/27/23 08:07 NM (Rec: 10/27/23 10:15 NM [id number]) Current Condition History of Current Condition Onset Date 12 years Current Complaints pain, balance, weakness History of Current Condition Pt presents with low back pain , chronic condition. She has had low back pain for about 12 years, hx of pain after falling down stairs as child and heavy lifting. She has had several nerve conduction studies, R foot pain. 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 She receives botox for her thoracic spine and for migraines; she will not be able to receive botox for 2 months due to scheduling. She has R foot drop, gets swelling , progressively weaker. She has orthotics. Worse with uneven ground, sitting with knees elevated, squatting, positional changes. she has had several epidural steroids for pain, May and September 23. She also has pain in mid back. Reports changes in balance, hx of falls. Prior Treatments and Tests Hx PT PT-OP-C Subjective Start: 10/24/23 16:59 Freq: Status: Active Protocol: Document 11/26/23 11:22 NBM (Rec: 11/26/23 12:18 [facility] [id number]) OP-PT Subjective Patient Comments Patient Comments Cassandra reports she's doing really well. She's learned when to stop to take a break, and how to use the ex's given in PT to help manage pain. This morning she was laying on L side for a bellyache, went to sleep for 45 min w/ blanket between legs for support and woke up with R knee numb from low quads and right below knee , which has never happened before. Yesterday she did gardening on all fours using fists and core engaged and had no issues. PT-OP-D Balance Start: 10/24/23 16:59 Freq: Status: Active Protocol: Document 10/27/23 08:07 NM (Rec: 10/27/23 10:15 NM [id number]) Balance Tests Single Limb Standing Single Limb- Right 2 seconds, min pain ~ PSIS Single Limb- Left 8 sec Tandem Tandem Standing 5 sec; difficulty achieving due to balance PT-OP-E Functional Tests Start: 10/24/23 16:59 Freq: Status: Active Protocol: Document 10/27/23 08:07 NM (Rec: 10/27/23 10:15 NM [id number]) Functional Tests 30 Second Sit to Stand Test Score 15 Comments irritates RLE; increased lordosis, B valgus Other forward flexion test Name of Test measured fingers to floor Score 0 (palms flat) Comment no pain reported with flexion PT-OP-F Manual Assessment Start: 10/24/23 16:59 Freq: Status: Active Protocol: Document 10/27/23 08:07 NM (Rec: 10/27/23 10:15 NM [id number]) Manual Assessments Soft Tissue Assessment Soft Tissue Mobility Assessment Increased tone B paraspinals, R>L. Demos slight spasm R lower paraspinals. Hamstring length R 165 deg, L 180 deg Joint Mobility Assessment Joint Mobility Assessment Step off. Increased mobility L4-L5, S1. Decreased mobility PSIS B. Decreased mobility PT-OP-G Mobility & Gait Start: 10/24/23 16:59 Freq: Status: Active Protocol: Document 10/27/23 08:07 NM (Rec: 10/27/23 10:15 NM [id number]) OP Gait Assessment Gait Gait Assistance Required: Independent Distance (Feet) 150 Assistive Devices Assistive Device None Gait Deviations General Gait Pattern Antalgic,Lateral Trunk Lean Factors Limiting Gait Function Factors Limiting Gait Function Decreased Activity Tolerance, Decreased Sensation,Decreased Strength,Pain Comments Gait Comments decreased trunk rotation, decrease R step PT-OP-H Neuro Start: 10/24/23 16:59 Freq: Status: Active Protocol: Document 10/27/23 08:07 NM (Rec: 10/27/23 10:15 NM [id number]) Sensation Evaluation Comments Summary Comments R light touch increased compared LLE except foot, decreased sensation PT-OP-J Posture/Palpation/Skin Start: 10/24/23 16:59 Freq: Status: Active Protocol: Document 10/27/23 08:07 NM (Rec: 10/27/23 10:15 NM [id number]) Posture Evaluation Position Standing Head/C-Spine Posture Forward Head L-Spine Posture Flattened,Decreased Lordosis Pelvis Posture Neutral Weight Distribution Balanced Knee Posture (L) Genu Valgus,(R) Genu Valgus Ankle/Foot Posture (L) Pronated,(R) Pronated Foot Arch (L) Low Arch,(R) Low Arch Palpation Assessment Location lumbar spine Palpation Location paraspinals, glutes, piriformis, spinous process Palpation Findings Soft Tissue Tightness Palpation Details Increased tone B paraspinals, muscle guarding of R>L. Tenderness L4-S1 with palpation of L4-S1. Spinous processes step down. Decreased mobility of thoracic spine PT-OP-K Range of Motion Start: 10/24/23 16:59 Freq: Status: Active Protocol: Document 10/27/23 08:07 NM (Rec: 10/27/23 10:15 NM [id number]) Lumbar Spine Range of Motion Lumbar Spine Active Percentage Flexion 100 Extension 25 Rotation Left 50 Rotation Right 50 Lateral Flexion Left 100 Lateral Flexion Right 75 Comments Pain worst with extension, radiates bilaterally. Pain with R lateral flexion in lower back and PSIS, L lateral flexion PSIS PT-OP-L Special Tests Start: 10/24/23 16:59 Freq: Status: Active Protocol: Document 10/27/23 08:07 NM (Rec: 10/27/23 10:15 NM [id number]) Special Tests Lumbar Spine Special Tests Osorio/Quadrant Test Results + Comments local L pain, R radicular symptoms Distraction Test Results + Comments with ppt Straight Leg Raise Test Results + Slump Test Results + PT-OP-M Strength Start: 10/24/23 16:59 Freq: Status: Active Protocol: Document 10/27/23 08:07 NM (Rec: 10/27/23 10:15 NM [id number]) Trunk Strength Trunk Manual Muscle Testing Flexion 4 Good Extension 3 Fair Rotation Left 3 Fair Rotation Right 3 Fair Lateral Flexion Left 4 Good Lateral Flexion Right 4 Good Comments pain with resisted extension in sitting Hip Strength Hip Manual Muscle Testing Right Flexion (L2) 3+ Fair+ Extension (S1) 3+ Fair+ Abduction 3+ Fair+ Adduction 4- Good- External Rotation 4- Good- Internal Rotation 4- Good- Comments Low back pain with hip flexion above hip height Left Flexion (L2) 4- Good- Extension (S1) 4- Good- Abduction 4- Good- Adduction 4- Good- External Rotation 4- Good- Internal Rotation 4- Good- Knee Strength Knee Manual Muscle Testing Right Flexion (S2) 4- Good- Extension (L3) 4- Good- Comments Increased sensitivity with testing Left Flexion (S2) 4- Good- Extension (L3) 4- Good- Ankle/Foot Strength Ankle and Foot Manual Muscle Testing Right Dorsiflexion (L4) 3+ Fair+ Plantarflexion (S1) 4- Good- Inversion 4- Good- Eversion (S1) 4- Good- Left Dorsiflexion (L4) 4 Good Plantarflexion (S1) 4 Good Inversion 4 Good Eversion (S1) 4 Good PT-OP-Q Treatments Start: 10/24/23 16:59 Freq: Status: Active Protocol: Document 11/26/23 11:22 [facility] (Rec: 11/26/23 12:18 [facility] [id number]) Therapeutic Exercises Supine Exercises hamstring curls Supine Exercise Name w/ core Side bilateral Resistance Lvl 1 Tb around feet Equipment Used 65cm physioball Reps/Minutes x5, x15 w/ Lvl 1 Tb Comments cue for LE alignment, heel dig glute/hamstring isometric Supine Exercise Name 90/90 position with feet on wall Side bilateral Resistance isometric Equipment Used 25% reported force through heels Reps/Minutes x10 with 5 hold Comments pain free, pt reports activates nystagmus wo pillow LTR Supine Exercise Name core stabilization Side bilateral Equipment Used 55cm orange tball Reps/Minutes 60 ea slowly Comments cued for ppt, core stabilization with back on table TA activation Supine Exercise Name pillow squeeze>bridge, B october , from 90/90 Side bilateral Equipment Used with PPT Reps/Minutes x10 ea Comments cued for slower pacing for TrA , good ppt, no pain Sidelying Exercises hip abduction Sidelying Exercise Name w/ extension; bottom knee extended Side bilateral Reps/Minutes 1x10 ea with 5 hold Comments core and breathing focus, pain free Self-Care/Home Management Treatment Education Patient Education Body Mechanics,Home Exercise Program Other Education Added to HEP: resisted HS curls on physioball w/ core focus; Bridging, and Hip 90/90 Isometric at wall - HO given. PT-OP-T Assessment and Plan Start: 10/24/23 16:59 Freq: Status: Active Protocol: Document 11/26/23 11:22 [facility] (Rec: 11/26/23 12:18 [facility] [id number]) Physical Therapy Assessment Goals Four Impairment AROM Impairment R lateral flexion AROM 75% of L lateral flexion AROM Account Specialist Goal (LTG) Pt will increase R lateral flexion AROM >75% of L lateral flexion AROM in order to demonstrate improved spinal mobility to perform ADLs, dressing. LTG Duration 6 weeks Three Impairment strength Impairment trunk extension, rotation MMT 3/5 [facility] Goal (LTG) Pt will improve trunk extension and lateral flexion MMT to at least 4/5 in order to demonstrate increased trunk stabilization. LTG Duration 6 weeks Two Impairment function Impairment pain with ADLs involving flexion Short Term Goal (STG) Pt will demonstrate hip hinge mechanics for at least 5 reps in standing in order to perform flexion-based ADLs without increased pain STG Duration 3 weeks [facility] Goal (LTG) Pt will report pain of <4/10 when standing at sink performing dishes in order to demonstrate improved QOL and activity tolerance. LTG Duration 6 weeks One Impairment function Impairment Oswestry 18/50 [facility] Goal (LTG) Pt will decrease Oswestry score by at least 9 points (1 MCID) in order to demonstrate improved QOL and activity tolerance. LTG Duration 6 weeks Assessment Summary Assessment Cassandra continues to demonstrate progression towards goals. Treatment focus on reviewing hip hinge and body mechanics w/ gardening, and progressing HEP. She requires minimum cues for hip hinge with chair squats or RDLs today. Added to HEP: resisted HS curls on physioball w/ core focus; Bridging, and Hip 90/90 Isometric at [facility] given. Physical Therapy Plan Frequency and Duration Frequency of Treatment 1-2x/wk Duration of treatment (weeks) 6 Plan of Care Start Date 10/27/23 Plan of Care End Date 12/12/23 Therapeutic Interventions Therapeutic Interventions Balance Training,Coordination Training,Gait Training,Home Exercise Program,Joint Mobilizations,Manual Therapy, Neuromuscular Re-education, Orthotic/Prosthetic Management ,Patient/Caregiver Education, Self-Care/Home Management, Sensory Integration,Soft Tissue Mobilization,Taping, Therapeutic Activities, Therapeutic Exercises Modalities Cold Pack/Ice Massage,Electric Stimulation,Hot Packs, Ultrasound,Vasopneumatic Devices Other Therapeutic Interventions Manual traction only Next Visit Focus/Plan Next Note Type Treatment Note Next Visit Plan Review deadlift/hip hinge and squat, 3 way hip. pelvic realignment prn Continue HEP review TA and use tball. Progress flexion- biased core and TA activation, progress hip abd/glute/lumbar extensor strength Manual: MWM at piriformis, glutes; lumbar (avoid L4-L5 due to anterolisthesis) and hip mobilizations prn
--- NOTE | 2023-12-03 09:39 | PT.OTN ---
Current Diagnoses Radiculopathy, lumbar region (12/03/23) Physical Therapy Treatment Note PT-OP-A Visit Information Start: 10/24/23 16:59 Freq: Status: Active Protocol: Document 12/03/23 08:16 NM (Rec: 12/03/23 09:03 NM [id number]) Out-Patient Physical Therapy Visit Information Visit Information Visit Type Progress Note Visit Note units 2 unit sessions Visit Start Time 08:17 Visit Stop Time 08:53 Visit Number 8 Evaluation Information Evaluation Date 10/27/23 PT-OP-B Current Condition Start: 10/24/23 16:59 Freq: Status: Active Protocol: Document 10/27/23 08:07 NM (Rec: 10/27/23 10:15 NM [id number]) Current Condition History of Current Condition Onset Date 12 years Current Complaints pain, balance, weakness History of Current Condition Pt presents with low back pain , chronic condition. She has had low back pain for about 12 years, hx of pain after falling down stairs as child and heavy lifting. She has had several nerve conduction studies, R foot pain. 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 She receives botox for her thoracic spine and for migraines; she will not be able to receive botox for 2 months due to scheduling. She has R foot drop, gets swelling , progressively weaker. She has orthotics. Worse with uneven ground, sitting with knees elevated, squatting, positional changes. she has had several epidural steroids for pain, May and September 23. She also has pain in mid back. Reports changes in balance, hx of falls. Prior Treatments and Tests Hx PT PT-OP-C Subjective Start: 10/24/23 16:59 Freq: Status: Active Protocol: Document 12/03/23 08:16 NM (Rec: 12/03/23 09:03 NM [id number]) OP-PT Subjective Patient Comments Patient Comments Pt is wanting to get another MRI, she is planning to ask for more insurance visits. She is wanting to continue strengthening, especially core . Recently she painted a room, flared up in pain last night after stepping off of a ladder . She hasn't had injections for botox in several months, which she believes helps. She hasn't had R foot pain recently, which is an improvement. Since beginning PT, she reports improvement in foot pain, she can walk on uneven ground for 1.5 hours ( prev 15 min), improved core stability and balance with ADLs/movement, squats, picking up objects from floor. Not improved with muscle imbalances, still has back pain. PT-OP-D Balance Start: 10/24/23 16:59 Freq: Status: Active Protocol: Document 10/27/23 08:07 NM (Rec: 10/27/23 10:15 NM [id number]) Balance Tests Single Limb Standing Single Limb- Right 2 seconds, min pain ~ PSIS Single Limb- Left 8 sec Tandem Tandem Standing 5 sec; difficulty achieving due to balance PT-OP-E Functional Tests Start: 10/24/23 16:59 Freq: Status: Active Protocol: Document 10/27/23 08:07 NM (Rec: 10/27/23 10:15 NM [id number]) Functional Tests 30 Second Sit to Stand Test Score 15 Comments irritates RLE; increased lordosis, B valgus Other forward flexion test Name of Test measured fingers to floor Score 0 (palms flat) Comment no pain reported with flexion PT-OP-F Manual Assessment Start: 10/24/23 16:59 Freq: Status: Active Protocol: Document 10/27/23 08:07 NM (Rec: 10/27/23 10:15 NM [id number]) Manual Assessments Soft Tissue Assessment Soft Tissue Mobility Assessment Increased tone B paraspinals, R>L. Demos slight spasm R lower paraspinals. Hamstring length R 165 deg, L 180 deg Joint Mobility Assessment Joint Mobility Assessment Step off. Increased mobility L4-L5, S1. Decreased mobility PSIS B. Decreased mobility PT-OP-G Mobility & Gait Start: 10/24/23 16:59 Freq: Status: Active Protocol: Document 10/27/23 08:07 NM (Rec: 10/27/23 10:15 NM [id number]) OP Gait Assessment Gait Gait Assistance Required: Independent Distance (Feet) 150 Assistive Devices Assistive Device None Gait Deviations General Gait Pattern Antalgic,Lateral Trunk Lean Factors Limiting Gait Function Factors Limiting Gait Function Decreased Activity Tolerance, Decreased Sensation,Decreased Strength,Pain Comments Gait Comments decreased trunk rotation, decrease R step PT-OP-H Neuro Start: 10/24/23 16:59 Freq: Status: Active Protocol: Document 10/27/23 08:07 NM (Rec: 10/27/23 10:15 NM [id number]) Sensation Evaluation Comments Summary Comments R light touch increased compared LLE except foot, decreased sensation PT-OP-J Posture/Palpation/Skin Start: 10/24/23 16:59 Freq: Status: Active Protocol: Document 10/27/23 08:07 NM (Rec: 10/27/23 10:15 NM [id number]) Posture Evaluation Position Standing Head/C-Spine Posture Forward Head L-Spine Posture Flattened,Decreased Lordosis Pelvis Posture Neutral Weight Distribution Balanced Knee Posture (L) Genu Valgus,(R) Genu Valgus Ankle/Foot Posture (L) Pronated,(R) Pronated Foot Arch (L) Low Arch,(R) Low Arch Palpation Assessment Location lumbar spine Palpation Location paraspinals, glutes, piriformis, spinous process Palpation Findings Soft Tissue Tightness Palpation Details Increased tone B paraspinals, muscle guarding of R>L. Tenderness L4-S1 with palpation of L4-S1. Spinous processes step down. Decreased mobility of thoracic spine PT-OP-K Range of Motion Start: 10/24/23 16:59 Freq: Status: Active Protocol: Document 12/03/23 08:16 NM (Rec: 12/03/23 09:03 NM [id number]) Lumbar Spine Range of Motion Lumbar Spine Active Percentage Flexion 100 Extension 25 Rotation Left 50 Rotation Right 50 Lateral Flexion Left 100 Lateral Flexion Right 75 Comments Pain worst with extension, radiates bilaterally. Pain with R lateral flexion in lower back and PSIS, L lateral flexion PSIS 12/03/23: 100% B lateral flexion, pain free but reports stretch PT-OP-L Special Tests Start: 10/24/23 16:59 Freq: Status: Active Protocol: Document 10/27/23 08:07 NM (Rec: 10/27/23 10:15 NM [id number]) Special Tests Lumbar Spine Special Tests Osorio/Quadrant Test Results + Comments local L pain, R radicular symptoms Distraction Test Results + Comments with ppt Straight Leg Raise Test Results + Slump Test Results + PT-OP-M Strength Start: 10/24/23 16:59 Freq: Status: Active Protocol: Document 12/03/23 08:16 NM (Rec: 12/03/23 09:03 NM [id number]) Trunk Strength Trunk Manual Muscle Testing Flexion 4 Good Extension 4 Good Rotation Left 3 Fair Rotation Right 3 Fair Lateral Flexion Left 4 Good Lateral Flexion Right 4 Good Comments pain with resisted extension in sitting 12/03/23: 4/5 lateral flexion and rotation, extension but not painful; able to initiate bird dogs today PT-OP-Q Treatments Start: 10/24/23 16:59 Freq: Status: Active Protocol: Document 12/03/23 08:16 NM (Rec: 12/03/23 09:03 NM [id number]) Therapeutic Exercises Supine Exercises bridge Supine Exercise Name 1. double bridge, 2. trialed: single leg bridge Side bilateral Resistance AROM Reps/Minutes 1. 1x10, 2. 1x5 Comments partial ROM; pain free, cued ppt and core stab; LLE weaker Prone Exercises quadruped Prone Exercise Name trialed in PT: bird dog Side bilateral Resistance AROM (on fists d/t wrist pain) Reps/Minutes 1x10 non-alternating Comments cued level pelvis, smaller range for now; pain free, good core stab Standing Exercises side steps Side bilateral Resistance lvl 2 teal tb Reps/Minutes 2x10 ft Comments hip hinge; pain free pallof press Side bilateral Resistance orange tb lvl 2 Reps/Minutes 1x10 Comments cue core stab; no rotation, reports dizzy, increased time squat Side bilateral Resistance AROM Reps/Minutes 1x15 Comments cued weight centered over midfoot; deadlift Standing Exercise Name 1. AROM with dowel, 2. trialed : 5# db Side bilateral Reps/Minutes 1. 1x10, 2. 1x10 Comments improved core bracing, cued rhomboid facil to prevent shldr flex Self-Care/Home Management Treatment Education Patient Education Home Exercise Program Other Education HEP: bird dog, pallof press, lateral band walk, PT-OP-T Assessment and Plan Start: 10/24/23 16:59 Freq: Status: Active Protocol: Document 12/03/23 08:16 NM (Rec: 12/03/23 09:03 NM [id number]) Physical Therapy Assessment Goals Four Impairment AROM Impairment R lateral flexion AROM 75% of L lateral flexion AROM Pediatric Dermatologist Goal (LTG) Pt will increase R lateral flexion AROM >75% of L lateral flexion AROM in order to demonstrate improved spinal mobility to perform ADLs, dressing. 12/03/23: 100% to R lateral flexion LTG Duration 6 weeks MET Three Impairment strength Impairment trunk extension, rotation MMT 3/5 Skilled Nursing Goal (LTG) Pt will improve trunk extension and lateral flexion MMT to at least 4/5 in order to demonstrate increased trunk stabilization. 12/03/23: 4/5 lateral flexion and extension against resistance, pain free; initiated bird dogs, 1x10 ea non-alternating LTG Duration 6 weeks MET Two Impairment function Impairment pain with ADLs involving flexion Short Term Goal (STG) Pt will demonstrate hip hinge mechanics for at least 5 reps in standing in order to perform flexion-based ADLs without increased pain 12/03/23: 10 reps without pain, AROM with dowel and 5# dumbbell STG Duration 3 weeks MET Pediatric Dermatologist Goal (LTG) Pt will report pain of <4/10 when standing at sink performing dishes in order to demonstrate improved QOL and activity tolerance. 12/03/23: 50% improvement compared to before at IE LTG Duration 6 weeks NOT MET One Impairment function Impairment Oswestry 1850 Skilled Nursing Goal (LTG) Pt will decrease Oswestry score by at least 9 points (1 MCID) in order to demonstrate improved QOL and activity tolerance. 12/03/23: 13/50 LTG Duration 6 weeks NOT MET Progress Towards Goals Progress Towards Goals Progressing Toward Goals,Goals Met Progress Comments 2 LTGs met related to strengthening and range of motion; progressing toward activity tolerance goals (met 1 STG) Assessment Summary Assessment Pt tolerated session well, but requires increased time with activity. Sessions continue to be shorter in order to maximize PT benefits. Pt wanting to continue PT due to progress toward goals; she is still planning to have follow up with surgeon in upcoming month to determine next steps in treatment plan. Pt demos good hamstring activation and core bracing with bridges. Trialed single leg bridge, able to perform at low reps without cramps, but requires cue to maintain level pelvis and very challenging for pt. Trialed pallof press, bird dog , and side steps for hip/ lumbar strengthening. Pt demos improved tolerance for upright activity but would benefit from additional BLE and lumbar/core strengthening to correct muscle imbalances and improve activity tolerance . Pt has been seen 7 times since IE in October 2023 for back pain. Sessions continue to be shorter (fewer units) in order to maximize PT benefits per pt request. Since IE, pt demonstrates improved trunk range of motion, particularly into right lateral flexion, which is now pain free. She also demonstrates improvements in lumbar paraspinals and extensor strength, particularly into lateral flexion/rotation and extension . Pt continues to progress with lumbar extensor and glute /hamstring strength. She is progressing well activity tolerance and pain management. Pt has met 2 LTGs and is progressing slowly toward last 2 LTGs. She reports now that she has fewer radicular symptoms into her R foot and her overall activity tolerance has improved by at least 50%. However, she continues to be limited by pain when performing ADLs/IADLs and she is unable to participate in recreational activities due to pain. Pt is still considering surgery, but due to good progress toward goals and with pain management/activity levels, she is wanting to continue PT at this time. Planning to maximize insurance visits at 2 units for 4 more visits. Pt has had good compliance with HEP. She would benefit from skilled PT for further lumbar/core/hip strengthening and body mechanics training in order to reduce pain symptoms, improve activity tolerance, and improve QOL. Physical Therapy Plan Frequency and Duration Frequency of Treatment 1x/wk per 2-3 weeks Duration of treatment (weeks) 12 Plan of Care Start Date 12/03/23 Plan of Care End Date 02/27/24 Therapeutic Interventions Therapeutic Interventions Balance Training,Coordination Training,Gait Training,Home Exercise Program,Joint Mobilizations,Manual Therapy, Neuromuscular Re-education, Orthotic/Prosthetic Management ,Patient/Caregiver Education, Self-Care/Home Management, Sensory Integration,Soft Tissue Mobilization,Taping, Therapeutic Activities, Therapeutic Exercises Modalities Cold Pack/Ice Massage,Electric Stimulation,Hot Packs, Ultrasound,Vasopneumatic Devices Other Therapeutic Interventions Manual traction only Next Visit Focus/Plan Next Note Type Treatment Note Next Visit Plan Review deadlift/hip hinge and squat, 3 way hip. pelvic realignment prn Continue HEP review TA and use tball. Progress flexion- biased core and TA activation, progress hip abd/glute/lumbar extensor strength Manual: MWM at piriformis, glutes; lumbar (avoid L4-L5 due to anterolisthesis) and hip mobilizations prn
--- NOTE | 2023-12-03 09:40 | PT.OPPOC ---
Physical, Occupational & Speech Therapy At [facility] Current Diagnoses Radiculopathy, lumbar region (12/03/23) Visit Care Team Role Provider Type Miguel Angel Thomas MD Attending Provider Physician Family Provider Primary Care Provider Referring Provider Specialty: Family Practice Address: [address] [place] [address] Email: [email or web address] Plan Of Care PT-OP-T Assessment and Plan Start: 10/24/23 16:59 Freq: Status: Active Protocol: Document 12/03/23 08:16 NM (Rec: 12/03/23 09:03 NM [id number]) Physical Therapy Assessment Goals Four Impairment AROM Impairment R lateral flexion AROM 75% of L lateral flexion AROM Clinical Nurse Occupational Medicine Goal (LTG) Pt will increase R lateral flexion AROM >75% of L lateral flexion AROM in order to demonstrate improved spinal mobility to perform ADLs, dressing. 12/03/23: 100% to R lateral flexion LTG Duration 6 weeks MET Three Impairment strength Impairment trunk extension, rotation MMT 3/5 Clinical Nurse Occupational Medicine Goal (LTG) Pt will improve trunk extension and lateral flexion MMT to at least 4/5 in order to demonstrate increased trunk stabilization. 12/03/23: 4/5 lateral flexion and extension against resistance, pain free; initiated bird dogs, 1x10 ea non-alternating LTG Duration 6 weeks MET Two Impairment function Impairment pain with ADLs involving flexion Short Term Goal (STG) Pt will demonstrate hip hinge mechanics for at least 5 reps in standing in order to perform flexion-based ADLs without increased pain 12/03/23: 10 reps without pain, AROM with dowel and 5# dumbbell STG Duration 3 weeks MET Clinical Nurse Occupational Medicine Goal (LTG) Pt will report pain of <4/10 when standing at sink performing dishes in order to demonstrate improved QOL and activity tolerance. 12/03/23: 50% improvement compared to before at IE LTG Duration 6 weeks NOT MET One Impairment function Impairment Oswestry 1850 Prison Goal (LTG) Pt will decrease Oswestry score by at least 9 points (1 MCID) in order to demonstrate improved QOL and activity tolerance. 12/03/23: 13/50 LTG Duration 6 weeks NOT MET Progress Towards Goals Progress Towards Goals Progressing Toward Goals,Goals Met Progress Comments 2 LTGs met related to strengthening and range of motion; progressing toward activity tolerance goals (met 1 STG) Assessment Summary Assessment Pt has been seen 7 times since IE in October 2023 for back pain. Sessions continue to be shorter (fewer units) in order to maximize PT benefits per pt request. Since IE, pt demonstrates improved trunk range of motion, particularly into right lateral flexion, which is now pain free. She also demonstrates improvements in lumbar paraspinals and extensor strength, particularly into lateral flexion/rotation and extension . Pt continues to progress with lumbar extensor and glute /hamstring strength. She is progressing well activity tolerance and pain management. Pt has met 2 LTGs and is progressing slowly toward last 2 LTGs. She reports now that she has fewer radicular symptoms into her R foot and her overall activity tolerance has improved by at least 50%. However, she continues to be limited by pain when performing ADLs/IADLs and she is unable to participate in recreational activities due to pain. Pt is still considering surgery, but due to good progress toward goals and with pain management/activity levels, she is wanting to continue PT at this time. Planning to maximize insurance visits at 2 units for 4 more visits. Pt has had good compliance with HEP. She would benefit from skilled PT for further lumbar/core/hip strengthening and body mechanics training in order to reduce pain symptoms, improve activity tolerance, and improve QOL. Physical Therapy Plan Frequency and Duration Frequency of Treatment 1x/wk per 2-3 weeks Duration of treatment (weeks) 12 Plan of Care Start Date 12/03/23 Plan of Care End Date 02/27/24 Therapeutic Interventions Therapeutic Interventions Balance Training,Coordination Training,Gait Training,Home Exercise Program,Joint Mobilizations,Manual Therapy, Neuromuscular Re-education, Orthotic/Prosthetic Management ,Patient/Caregiver Education, Self-Care/Home Management, Sensory Integration,Soft Tissue Mobilization,Taping, Therapeutic Activities, Therapeutic Exercises Modalities Cold Pack/Ice Massage,Electric Stimulation,Hot Packs, Ultrasound,Vasopneumatic Devices Other Therapeutic Interventions Manual traction only Next Visit Focus/Plan Next Note Type Treatment Note Next Visit Plan Review deadlift/hip hinge and squat, 3 way hip. pelvic realignment prn Continue HEP review TA and use tball. Progress flexion- biased core and TA activation, progress hip abd/glute/lumbar extensor strength Manual: MWM at piriformis, glutes; lumbar (avoid L4-L5 due to anterolisthesis) and hip mobilizations prn Plan of Care Dates Plan of Care Start Date 12/03/23 Plan of Care End Date 02/27/24 Electronically Signed by: Mary Anne Cutler, PT 12/05/23 0945 If you are in agreement with this Plan of Care, please return a signed and dated copy. I have reviewed this Plan of Care and certify that the skilled therapy services above are required to meet the patient?s needs. Physician Signature Date Printed Name and Credentials Clinical Instructor Signature Printed Name and Credentials
--- NOTE | 2023-12-10 09:07 | PT.OTN ---
Current Diagnoses Radiculopathy, lumbar region (12/10/23) Physical Therapy Treatment Note PT-OP-A Visit Information Start: 10/24/23 16:59 Freq: Status: Active Protocol: Document 12/10/23 08:16 NM (Rec: 12/10/23 09:07 NM [id number]) Out-Patient Physical Therapy Visit Information Visit Information Visit Type Treatment Note Visit Note units 2 unit sessions Visit Start Time 08:16 Visit Stop Time 08:52 Visit Number 9 Evaluation Information Evaluation Date 10/27/23 PT-OP-B Current Condition Start: 10/24/23 16:59 Freq: Status: Active Protocol: Document 10/27/23 08:07 NM (Rec: 10/27/23 10:15 NM [id number]) Current Condition History of Current Condition Onset Date 12 years Current Complaints pain, balance, weakness History of Current Condition Pt presents with low back pain , chronic condition. She has had low back pain for about 12 years, hx of pain after falling down stairs as child and heavy lifting. She has had several nerve conduction studies, R foot pain. 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 She receives botox for her thoracic spine and for migraines; she will not be able to receive botox for 2 months due to scheduling. She has R foot drop, gets swelling , progressively weaker. She has orthotics. Worse with uneven ground, sitting with knees elevated, squatting, positional changes. she has had several epidural steroids for pain, May and September 23. She also has pain in mid back. Reports changes in balance, hx of falls. Prior Treatments and Tests Hx PT PT-OP-C Subjective Start: 10/24/23 16:59 Freq: Status: Active Protocol: Document 12/10/23 08:16 NM (Rec: 12/10/23 09:07 NM [id number]) OP-PT Subjective Patient Comments Patient Comments Pt reports that she has been having bad allergies, has not performed exercises due to illness. She has been having L sided hip pain, near glute/ SIJ; worse in bed. PT-OP-D Balance Start: 10/24/23 16:59 Freq: Status: Active Protocol: Document 10/27/23 08:07 NM (Rec: 10/27/23 10:15 NM [id number]) Balance Tests Single Limb Standing Single Limb- Right 2 seconds, min pain ~ PSIS Single Limb- Left 8 sec Tandem Tandem Standing 5 sec; difficulty achieving due to balance PT-OP-E Functional Tests Start: 10/24/23 16:59 Freq: Status: Active Protocol: Document 10/27/23 08:07 NM (Rec: 10/27/23 10:15 NM [id number]) Functional Tests 30 Second Sit to Stand Test Score 15 Comments irritates RLE; increased lordosis, B valgus Other forward flexion test Name of Test measured fingers to floor Score 0 (palms flat) Comment no pain reported with flexion PT-OP-F Manual Assessment Start: 10/24/23 16:59 Freq: Status: Active Protocol: Document 10/27/23 08:07 NM (Rec: 10/27/23 10:15 NM [id number]) Manual Assessments Soft Tissue Assessment Soft Tissue Mobility Assessment Increased tone B paraspinals, R>L. Demos slight spasm R lower paraspinals. Hamstring length R 165 deg, L 180 deg Joint Mobility Assessment Joint Mobility Assessment Step off. Increased mobility L4-L5, S1. Decreased mobility PSIS B. Decreased mobility PT-OP-G Mobility & Gait Start: 10/24/23 16:59 Freq: Status: Active Protocol: Document 10/27/23 08:07 NM (Rec: 10/27/23 10:15 NM [id number]) OP Gait Assessment Gait Gait Assistance Required: Independent Distance (Feet) 150 Assistive Devices Assistive Device None Gait Deviations General Gait Pattern Antalgic,Lateral Trunk Lean Factors Limiting Gait Function Factors Limiting Gait Function Decreased Activity Tolerance, Decreased Sensation,Decreased Strength,Pain Comments Gait Comments decreased trunk rotation, decrease R step PT-OP-H Neuro Start: 10/24/23 16:59 Freq: Status: Active Protocol: Document 10/27/23 08:07 NM (Rec: 10/27/23 10:15 NM [id number]) Sensation Evaluation Comments Summary Comments R light touch increased compared LLE except foot, decreased sensation PT-OP-J Posture/Palpation/Skin Start: 10/24/23 16:59 Freq: Status: Active Protocol: Document 10/27/23 08:07 NM (Rec: 10/27/23 10:15 NM [id number]) Posture Evaluation Position Standing Head/C-Spine Posture Forward Head L-Spine Posture Flattened,Decreased Lordosis Pelvis Posture Neutral Weight Distribution Balanced Knee Posture (L) Genu Valgus,(R) Genu Valgus Ankle/Foot Posture (L) Pronated,(R) Pronated Foot Arch (L) Low Arch,(R) Low Arch Palpation Assessment Location lumbar spine Palpation Location paraspinals, glutes, piriformis, spinous process Palpation Findings Soft Tissue Tightness Palpation Details Increased tone B paraspinals, muscle guarding of R>L. Tenderness L4-S1 with palpation of L4-S1. Spinous processes step down. Decreased mobility of thoracic spine PT-OP-K Range of Motion Start: 10/24/23 16:59 Freq: Status: Active Protocol: Document 12/03/23 08:16 NM (Rec: 12/03/23 09:03 NM [id number]) Lumbar Spine Range of Motion Lumbar Spine Active Percentage Flexion 100 Extension 25 Rotation Left 50 Rotation Right 50 Lateral Flexion Left 100 Lateral Flexion Right 75 Comments Pain worst with extension, radiates bilaterally. Pain with R lateral flexion in lower back and PSIS, L lateral flexion PSIS 12/03/23: 100% B lateral flexion, pain free but reports stretch PT-OP-L Special Tests Start: 10/24/23 16:59 Freq: Status: Active Protocol: Document 10/27/23 08:07 NM (Rec: 10/27/23 10:15 NM [id number]) Special Tests Lumbar Spine Special Tests Osorio/Quadrant Test Results + Comments local L pain, R radicular symptoms Distraction Test Results + Comments with ppt Straight Leg Raise Test Results + Slump Test Results + PT-OP-M Strength Start: 10/24/23 16:59 Freq: Status: Active Protocol: Document 12/03/23 08:16 NM (Rec: 12/03/23 09:03 NM [id number]) Trunk Strength Trunk Manual Muscle Testing Flexion 4 Good Extension 4 Good Rotation Left 3 Fair Rotation Right 3 Fair Lateral Flexion Left 4 Good Lateral Flexion Right 4 Good Comments pain with resisted extension in sitting 12/03/23: 4/5 lateral flexion and rotation, extension but not painful; able to initiate bird dogs today PT-OP-Q Treatments Start: 10/24/23 16:59 Freq: Status: Active Protocol: Document 12/10/23 08:16 NM (Rec: 12/10/23 09:07 NM [id number]) Therapeutic Exercises Supine Exercises bridge Supine Exercise Name double bridge Side bilateral Resistance AROM Reps/Minutes 1x15 with 5 hold Comments pain free; no SL bridge d/t L hip pain flexion-biased core Supine Exercise Name dying bug with cross-body stabilization Side bilateral Equipment Used orange swissball Reps/Minutes 1x5 Comments trialed in PT Prone Exercises bear plank Prone Exercise Name with ppt Side bilateral Equipment Used on fists d/t to wrist Reps/Minutes 3x10 Comments cued core stabilization; pain free quadruped Prone Exercise Name reviewed in PT: bird dog Side bilateral Resistance AROM (on fists d/t wrist pain) Reps/Minutes 1x10 alternating Comments cued level pelvis, smaller range for now; pain free, good core stab Standing Exercises side steps Side bilateral Resistance lvl 2 teal tb Reps/Minutes 2x10 ft Comments hip hinge; pain free pallof press Standing Exercise Name press only Side bilateral Resistance orange tb lvl 2 Reps/Minutes 2x10 with hip hinge Comments cue core stab; no rotation, with breathing squat Side bilateral Resistance 3# Reps/Minutes 1x10, self tactile cue at L hip to prevent rotation last few reps Comments cued weight centered over midfoot; Manual Therapy Treatment Soft Tissue Mobilization lumbar spine Body Location paraspinals, QL L>R Mobilization Type Cross-Friction,Rolling, Strumming Intensity/Depth Superficial Body Position Sidelying Comments Referral into ant thigh. Decreased with rolling, oscillations, strumming and cross friction. L hip Body Location glute/piriformis Mobilization Type Cross-Friction,Rolling, Sustained Pressure Intensity/Depth Moderate Body Position Sidelying Comments L>R. Decreased tenderness with rolling, strumming, cross friction Self-Care/Home Management Treatment Education Patient Education Home Exercise Program Other Education HEP: bird dog, pallof press, lateral band walk, dying bug with ball for stabilization, bear plank PT-OP-T Assessment and Plan Start: 10/24/23 16:59 Freq: Status: Active Protocol: Document 12/10/23 08:16 NM (Rec: 12/10/23 09:07 NM [id number]) Physical Therapy Assessment Goals Four Impairment AROM Impairment R lateral flexion AROM 75% of L lateral flexion AROM Head Bookkeeper Goal (LTG) Pt will increase R lateral flexion AROM >75% of L lateral flexion AROM in order to demonstrate improved spinal mobility to perform ADLs, dressing. 12/03/23: 100% to R lateral flexion LTG Duration 6 weeks MET Three Impairment strength Impairment trunk extension, rotation MMT 3/5 Head Bookkeeper Goal (LTG) Pt will improve trunk extension and lateral flexion MMT to at least 4/5 in order to demonstrate increased trunk stabilization. 12/03/23: 4/5 lateral flexion and extension against resistance, pain free; initiated bird dogs, 1x10 ea non-alternating LTG Duration 6 weeks MET Two Impairment function Impairment pain with ADLs involving flexion Short Term Goal (STG) Pt will demonstrate hip hinge mechanics for at least 5 reps in standing in order to perform flexion-based ADLs without increased pain 12/03/23: 10 reps without pain, AROM with dowel and 5# dumbbell STG Duration 3 weeks MET Head Bookkeeper Goal (LTG) Pt will report pain of <4/10 when standing at sink performing dishes in order to demonstrate improved QOL and activity tolerance. 12/03/23: 50% improvement compared to before at IE LTG Duration 6 weeks NOT MET One Impairment function Impairment Oswestry 18/50 Longterm Goal (LTG) Pt will decrease Oswestry score by at least 9 points (1 MCID) in order to demonstrate improved QOL and activity tolerance. 12/03/23: 13/50 LTG Duration 6 weeks NOT MET Assessment Summary Assessment Pt tolerated session well with good effort, but was very distracted due to increased pain levels in L hip prior to start of session and during activities. Pt very concerned about her pelvis positioning and alignment during exercise. PT educated pt on pelvis position during ea specific exercise, but emphasized importance of nuetral spine for lumbar stabilization in these activities and core activation. Pt verbalizes understanding but insists on pelvic alignment and becomes frustrated during activities if she does not feel like she is performing exercises correctly. Pt performed bird dogs with improved pelvic and spine control, able to alternate today. Reviewed pallof press, side steps, and squats with small resistance today for greater glute/core strength. Initiated bear plank for greater core strength in flexion bias. Performed soft tissue mobilization of lumbar paraspinals and glutes/ piriformis for symptom reduction and tissue elongation. She has appt with spine surgeon this week. Pt would benefit from skilled PT for further lumbar and core stabilization, functional strengthening in order to demonstrate improved tolerance for activities and symptom management. Physical Therapy Plan Frequency and Duration Frequency of Treatment 1x/wk per 2-3 weeks Duration of treatment (weeks) 12 Plan of Care Start Date 12/03/23 Plan of Care End Date 02/27/24 Therapeutic Interventions Therapeutic Interventions Balance Training,Coordination Training,Gait Training,Home Exercise Program,Joint Mobilizations,Manual Therapy, Neuromuscular Re-education, Orthotic/Prosthetic Management ,Patient/Caregiver Education, Self-Care/Home Management, Sensory Integration,Soft Tissue Mobilization,Taping, Therapeutic Activities, Therapeutic Exercises Modalities Cold Pack/Ice Massage,Electric Stimulation,Hot Packs, Ultrasound,Vasopneumatic Devices Other Therapeutic Interventions Manual traction only Next Visit Focus/Plan Next Note Type Treatment Note Next Visit Plan Next session: bear plank pass, loaded deadlift, J curl, 3 way hip, step up, lat pull down, upright row, ask appt with surgeon Review deadlift/hip hinge and squat, 3 way hip. pelvic realignment prn Continue HEP review TA and use tball. Progress flexion- biased core and TA activation, progress hip abd/glute/lumbar extensor strength Manual: MWM at piriformis, glutes; lumbar (avoid L4-L5 due to anterolisthesis) and hip mobilizations prn
--- NOTE | 2024-01-26 08:37 | PT.OTN ---
Current Diagnoses Radiculopathy, lumbar region (01/26/24) Physical Therapy Treatment Note PT-OP-A Visit Information Start: 10/24/23 16:59 Freq: Status: Active Protocol: Document 01/26/24 07:32 NM (Rec: 01/26/24 08:35 NM [id number]) Out-Patient Physical Therapy Visit Information Visit Information Visit Type Discharge Summary Visit Note units 2 unit sessions Visit Start Time 07:32 Visit Stop Time 08:05 Visit Number 10 Evaluation Information Evaluation Date 10/27/23 PT-OP-B Current Condition Start: 10/24/23 16:59 Freq: Status: Active Protocol: Document 10/27/23 08:07 NM (Rec: 10/27/23 10:15 NM [id number]) Current Condition History of Current Condition Onset Date 12 years Current Complaints pain, balance, weakness History of Current Condition Pt presents with low back pain , chronic condition. She has had low back pain for about 12 years, hx of pain after falling down stairs as child and heavy lifting. She has had several nerve conduction studies, R foot pain. 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 She receives botox for her thoracic spine and for migraines; she will not be able to receive botox for 2 months due to scheduling. She has R foot drop, gets swelling , progressively weaker. She has orthotics. Worse with uneven ground, sitting with knees elevated, squatting, positional changes. she has had several epidural steroids for pain, May and September 23. She also has pain in mid back. Reports changes in balance, hx of falls. Prior Treatments and Tests Hx PT PT-OP-C Subjective Start: 10/24/23 16:59 Freq: Status: Active Protocol: Document 01/26/24 07:32 NM (Rec: 01/26/24 08:35 NM [id number]) OP-PT Subjective Patient Comments Patient Comments Pt reports that she has seen the surgeon, but states the she hurt herself in the meantime. Pt states that she was improving, but then she was pushing/moving a couch which caused a regression since last visit. She was unable to walk for 3 days. She has an an increase in lumbar and thoracic pain. The surgeon is planning on sending pt up to [place] for nerve ablation. Recently had a MRI. She is wanting to discharge today due to pain and have referral back to surgeon. Has had several deaths in family, very stressed PT-OP-D Balance Start: 10/24/23 16:59 Freq: Status: Active Protocol: Document 10/27/23 08:07 NM (Rec: 10/27/23 10:15 NM [id number]) Balance Tests Single Limb Standing Single Limb- Right 2 seconds, min pain ~ PSIS Single Limb- Left 8 sec Tandem Tandem Standing 5 sec; difficulty achieving due to balance PT-OP-E Functional Tests Start: 10/24/23 16:59 Freq: Status: Active Protocol: Document 10/27/23 08:07 NM (Rec: 10/27/23 10:15 NM [id number]) Functional Tests 30 Second Sit to Stand Test Score 15 Comments irritates RLE; increased lordosis, B valgus Other forward flexion test Name of Test measured fingers to floor Score 0 (palms flat) Comment no pain reported with flexion PT-OP-F Manual Assessment Start: 10/24/23 16:59 Freq: Status: Active Protocol: Document 10/27/23 08:07 NM (Rec: 10/27/23 10:15 NM [id number]) Manual Assessments Soft Tissue Assessment Soft Tissue Mobility Assessment Increased tone B paraspinals, R>L. Demos slight spasm R lower paraspinals. Hamstring length R 165 deg, L 180 deg Joint Mobility Assessment Joint Mobility Assessment Step off. Increased mobility L4-L5, S1. Decreased mobility PSIS B. Decreased mobility PT-OP-G Mobility & Gait Start: 10/24/23 16:59 Freq: Status: Active Protocol: Document 10/27/23 08:07 NM (Rec: 10/27/23 10:15 NM [id number]) OP Gait Assessment Gait Gait Assistance Required: Independent Distance (Feet) 150 Assistive Devices Assistive Device None Gait Deviations General Gait Pattern Antalgic,Lateral Trunk Lean Factors Limiting Gait Function Factors Limiting Gait Function Decreased Activity Tolerance, Decreased Sensation,Decreased Strength,Pain Comments Gait Comments decreased trunk rotation, decrease R step PT-OP-H Neuro Start: 10/24/23 16:59 Freq: Status: Active Protocol: Document 10/27/23 08:07 NM (Rec: 10/27/23 10:15 NM [id number]) Sensation Evaluation Comments Summary Comments R light touch increased compared LLE except foot, decreased sensation PT-OP-J Posture/Palpation/Skin Start: 10/24/23 16:59 Freq: Status: Active Protocol: Document 10/27/23 08:07 NM (Rec: 10/27/23 10:15 NM [id number]) Posture Evaluation Position Standing Head/C-Spine Posture Forward Head L-Spine Posture Flattened,Decreased Lordosis Pelvis Posture Neutral Weight Distribution Balanced Knee Posture (L) Genu Valgus,(R) Genu Valgus Ankle/Foot Posture (L) Pronated,(R) Pronated Foot Arch (L) Low Arch,(R) Low Arch Palpation Assessment Location lumbar spine Palpation Location paraspinals, glutes, piriformis, spinous process Palpation Findings Soft Tissue Tightness Palpation Details Increased tone B paraspinals, muscle guarding of R>L. Tenderness L4-S1 with palpation of L4-S1. Spinous processes step down. Decreased mobility of thoracic spine PT-OP-K Range of Motion Start: 10/24/23 16:59 Freq: Status: Active Protocol: Document 01/26/24 07:32 NM (Rec: 01/26/24 08:35 NM [id number]) Lumbar Spine Range of Motion Lumbar Spine Active Percentage Flexion 100 Extension 25 Rotation Left 50 Rotation Right 50 Lateral Flexion Left 100 Lateral Flexion Right 75 Comments Pain worst with extension, radiates bilaterally. Pain with R lateral flexion in lower back and PSIS, L lateral flexion PSIS 12/03/23: 100% B lateral flexion, pain free but reports stretch 01/26/24: ROM increased pain in low back and thoracic spine PT-OP-L Special Tests Start: 10/24/23 16:59 Freq: Status: Active Protocol: Document 10/27/23 08:07 NM (Rec: 10/27/23 10:15 NM [id number]) Special Tests Lumbar Spine Special Tests Osorio/Quadrant Test Results + Comments local L pain, R radicular symptoms Distraction Test Results + Comments with ppt Straight Leg Raise Test Results + Slump Test Results + PT-OP-M Strength Start: 10/24/23 16:59 Freq: Status: Active Protocol: Document 01/26/24 07:32 NM (Rec: 01/26/24 08:35 NM [id number]) Trunk Strength Trunk Manual Muscle Testing Flexion 4 Good Extension 4 Good Rotation Left 3 Fair Rotation Right 3 Fair Lateral Flexion Left 4 Good Lateral Flexion Right 4 Good Comments pain with resisted extension in sitting 12/03/23: 4/5 lateral flexion and rotation, extension but not painful; able to initiate bird dogs today 01/26/24: improved core bracing, but resisted motions increase pain in low back PT-OP-Q Treatments Start: 10/24/23 16:59 Freq: Status: Active Protocol: Document 01/26/24 07:32 NM (Rec: 01/26/24 08:35 NM [id number]) Therapeutic Exercises Supine Exercises glute/hamstring isometric Supine Exercise Name glute squeeze Side bilateral Resistance isometric Equipment Used 25% force Reps/Minutes x10 with 5 hold Comments pain free in low back flexion-biased core Supine Exercise Name 1. rectus abdominis isometric, 2. oblique isometric Side bilateral Equipment Used legs elevated on orange swissball, hands used for isometric Reps/Minutes 5x10 ea Comments pain free in low back; 25% force TA activation Supine Exercise Name BKFO Reps/Minutes 2x10 ea leg Comments cued abdominal bracing; pain free in low back knees to chest Supine Exercise Name DKTC repeated motion and stretch Side bilateral Reps/Minutes 1x10 with brief hold for 5 ea Comments pain free in low back; demos good PPT Therapeutic Activity Therapeutic Activity diaphragmatic breathing Reps/Minutes 8 minutes Comments For pain reduction via parasympathetic nervous system activation, muscle relaxation Level 1 band around abdomen and hand on chest for self- tactile cues. Verbal cues to breath in through nose and out through mouth log roll Reps/Minutes 5 minutes, several reps Comments Education on rationale behind movement pattern, several reps and successful demonstrations by patient. Cued to keep knees and shoulders in line, no segmental rotation, strong pushing up or down with arms/ core. Pain free and reports, helpful Self-Care/Home Management Treatment Education Patient Education Body Mechanics,Home Exercise Program,Pain Management Other Education Extensive education during exercises regarding pain management techniques, including diaphragmatic breathing, core bracing, activity modification, d/c standing HEP PT-OP-T Assessment and Plan Start: 10/24/23 16:59 Freq: Status: Active Protocol: Document 01/26/24 07:32 NM (Rec: 01/26/24 08:35 NM [id number]) Physical Therapy Assessment Goals Four Impairment AROM Impairment R lateral flexion AROM 75% of L lateral flexion AROM Services Engineer Goal (LTG) Pt will increase R lateral flexion AROM >75% of L lateral flexion AROM in order to demonstrate improved spinal mobility to perform ADLs, dressing. 12/03/23: 100% to R lateral flexion LTG Duration 6 weeks MET Three Impairment strength Impairment trunk extension, rotation MMT 3/ Alf Goal (LTG) Pt will improve trunk extension and lateral flexion MMT to at least 4/5 in order to demonstrate increased trunk stabilization. 12/03/23: 4/5 lateral flexion and extension against resistance, pain free; initiated bird dogs, 1x10 ea non-alternating 01/26/24: NOT MET, 3/5 today w/ pain during resisted movement LTG Duration 6 weeks MET Two Impairment function Impairment pain with ADLs involving flexion Short Term Goal (STG) Pt will demonstrate hip hinge mechanics for at least 5 reps in standing in order to perform flexion-based ADLs without increased pain 12/03/23: 10 reps without pain, AROM with dowel and 5# dumbbell STG Duration 3 weeks MET Alf Goal (LTG) Pt will report pain of <4/10 when standing at sink performing dishes in order to demonstrate improved QOL and activity tolerance. 12/03/23: 50% improvement compared to before at IE 01/26/24: reports all ADLs cause increased pain right now LTG Duration 6 weeks NOT MET One Impairment function Impairment Oswestry 18/50 Alf Goal (LTG) Pt will decrease Oswestry score by at least 9 points (1 MCID) in order to demonstrate improved QOL and activity tolerance. 12/03/23: 13/50 01/26/24: 20/50 LTG Duration 6 weeks NOT MET Progress Towards Goals Progress Towards Goals Slow Progress due to Medical Issues,Slow Progress - Other Progress Comments Remaining goals not met. Pt has re-injury due to moving couch and increased pain Assessment Summary Assessment Pt very distressed at beginning of session and presents with increased pain. She is also sick and having trouble with congestion. Session emphasis on education and symptom reduction. Initiated diaphragmatic breathing with tactile and verbal cues. Pt tolerated well . Educated pt on purpose/use of log roll, which pt able to successfully demonstrate. Reviewed core bracing, gentle flexion-biased core exercises for strengthening and pain reduction, including isometrics for analgesic effect. Pt tolerated all exercises well without increase in back pain or symptoms. PT educated pt to discontinue standing exercises from previous HEPs for now, discontinue all HEPs from this episode of care if pt has surgery unless cleared by MD. Pt verbalizes agreement Physical Therapy Plan Frequency and Duration Frequency of Treatment 1x/wk per 2-3 weeks Duration of treatment (weeks) 12 Plan of Care Start Date 12/03/23 Plan of Care End Date 02/27/24 Therapeutic Interventions Therapeutic Interventions Balance Training,Coordination Training,Gait Training,Home Exercise Program,Joint Mobilizations,Manual Therapy, Neuromuscular Re-education, Orthotic/Prosthetic Management ,Patient/Caregiver Education, Self-Care/Home Management, Sensory Integration,Soft Tissue Mobilization,Taping, Therapeutic Activities, Therapeutic Exercises Modalities Cold Pack/Ice Massage,Electric Stimulation,Hot Packs, Ultrasound,Vasopneumatic Devices Other Therapeutic Interventions Manual traction only Discharge Physical Therapy Discharge Reasons Patient Request Discharge Comments Pt requesting to d/c today with referral back to MD as she has had increase in pain levels after moving couch since last treatment session. Pt also only has 1 more visit allowed due to insurance, planning on having possible nerve ablation or surgery. Educated to follow up with PCP or surgeon due to increased pain symptoms, immediately if symptoms return/worsen Next Visit Focus/Plan Next Visit Plan Discharge from PT
== END 2024-01-26 14:37 | disposition home or self-care (01) ==
LOC: PHYS 07:30
PROVIDERS: Family Provider Family Medicine; PCP Family Medicine; Referring Provider Family Medicine; Visit Provider Family Medicine
DX: M54.16 Radiculopathy, lumbar region (principal)
CPT/HCPCS: 97110; 97140; 97161; 97530

== ENCOUNTER → 2024-01-26 08:16 | Outpatient (CLI) | payer OTHER, MEDICAID, SELFPAY | LOC: RESP 08:17 | PROVIDERS: Family Provider Family Medicine; PCP Family Medicine; Referring Provider Internal Medicine; Visit Provider Internal Medicine | DX: J45.40 Moderate persistent asthma, uncomplicated (principal); Z87.891 Personal history of nicotine dependence | CPT/HCPCS: 94010; 94726; 94729 ==

== ENCOUNTER → 2024-02-16 14:06 | Outpatient (CLI) | payer OTHER, MEDICAID, SELFPAY ==
--- NOTE | 2024-02-16 14:08 | DI.CT.S_ITS ---
PROCEDURE: CT CHEST HIGH RESOLUTION INDICATIONS: rule out interstitial lung disease TECHNIQUE: Noncontrast 1.0 and 5.0 mm thick contiguous axial sections from the pulmonary apex to the posterior costophrenic angles, with 7 mm thick coronal and sagittal MIP reformats. 1 mm thick dynamic expiratory images acquired through the upper, mid, and lower lungs. 1.0 mm thick axial sections acquired from the beronica to the posterior costophrenic angles in the prone end-inspiration position. For radiation dose reduction, the following was used: automated exposure control, adjustment of mA and/or kV according to patient size. COMPARISON: None. FINDINGS: Image quality: Diagnostic. Lower Neck: Not well seen Thyroid: Not well seen Axillae: No enlarged lymph nodes. Chest Wall: Unremarkable. Bones: Degenerative disc and endplate changes at T5-6 and T6-7. No suspicious bone lesions. Lungs and Pleura: Central and peripheral airways are normal without bronchial wall thickening or bronchiectasis. No evidence of reticulation, interstitial thickening, honeycombing, ground-glass opacities, or alveolar consolidations. There is a thin linear opacity at the left lung base, presumably scarring. No pleural effusion, pleural irregularity, or calcification. No suspicious nodule requiring follow-up. Exhalation images are negative for significant air trapping. Heart: Heart size is normal. No pericardial effusion. Thoracic Vessels: Ascending aorta is ectatic measuring 3.9 cm AP diameter. Pulmonary arteries are normal caliber. Mediastinum and Mira: No enlarged lymph nodes. Esophagus: No wall thickening. No hiatal hernia. Upper Abdomen: Visualized upper abdomen solid organs and bowel loops appear normal. IMPRESSION: No significant acute or chronic pulmonary parenchymal pathology. Incidental note of ectatic ascending thoracic aorta. Dictated by: Anya Gayle M.D. on 02/16/2024 at 22:16 Approved by: Anya Gayle M.D. on 02/16/2024 at 22:24
== END ==
PROVIDERS: Family Provider Family Medicine; PCP Family Medicine; Referring Provider Internal Medicine; Visit Provider Internal Medicine
DX: J45.40 Moderate persistent asthma, uncomplicated (principal); R06.02 Shortness of breath; I77.810 Thoracic aortic ectasia; M47.24 Other spondylosis with radiculopathy, thoracic region; M43.16 Spondylolisthesis, lumbar region; Z87.898 Personal history of other specified conditions
CPT/HCPCS: 71250; 99214

== ENCOUNTER → 2024-10-21 07:57 | Outpatient (CLI) | payer OTHER, SELFPAY ==
--- NOTE | 2024-10-21 07:59 | DI.US.S_ITS ---
PROCEDURE: US ABDOMEN LIMITED INDICATIONS: Gallbladder pain, Right Upper Quadrant TECHNIQUE: Real-time scanning was performed of the abdominal and retroperitoneal organs, with image documentation. COMPARISON: None. FINDINGS: Liver: Increased liver echogenicity, likely mild hepatic steatosis. Gallbladder: No gallstones. No wall thickening. No pericholecystic edema. Negative sonographic Bloom's sign. Biliary ducts: Intrahepatic bile ducts are non-dilated. Extrahepatic bile duct caliber measures 4 mm. Normal is 6-7 mm or less in diameter, or 10 mm or less post-cholecystectomy. Pancreas: Visualized portions of the pancreas are sonographically normal. Miscellaneous: No free abdominal fluid. IMPRESSION: Increased liver echogenicity, likely mild hepatic steatosis. No gallstones. Dictated by: Surya Man M.D. on 10/21/2024 at 17:02 Approved by: Surya Man M.D. on 10/21/2024 at 17:03
== END ==
PROVIDERS: Family Provider Family Medicine; PCP Family Medicine; Referring Provider Family Medicine; Visit Provider Family Medicine
DX: K76.0 Fatty (change of) liver, not elsewhere classified (principal); R10.11 Right upper quadrant pain
CPT/HCPCS: 76705

== ENCOUNTER → 2024-11-16 15:11 | Outpatient (CLI) | payer OTHER, SELFPAY ==
--- NOTE | 2024-11-16 15:13 | DI.MRI.S_ITS ---
PROCEDURE: MR LUMBAR SPINE WO CON INDICATIONS: SPONDYLOSIS,CSPINE/NUMBNESS TINGLING UPPER EXT TECHNIQUE: Noncontrast sagittal T1 spin echo and T2 fast echo, sagittal STIR, and T2 fast spin echo through the lumbar spine. In cases with scoliosis, additional coronal T2 fast spin echo may be performed. COMPARISON: [facility], MR, MR LUMBAR SPINE WO CON, 01/02/2024, 9:14. FINDINGS: Image quality: Excellent. Alignment and Curvature: There is unchanged appearance grade 1 anterior listhesis L4 on L5 measuring 7 mm. Trace retrolisthesis of L3 on L4 and L5 on S1. Bone Marrow: Marrow is of normal overall signal. No acute vertebral body compression fractures. Spinal Cord: Conus medullaris terminates at the L1 level. Visualized cord demonstrates normal signal and size. Paraspinous Soft Tissues: No paravertebral masses. Discs: Multilevel disc desiccation most prominent L4-5. T12-L1: No disc bulge, spinal stenosis or foraminal narrowing. No interval change. L1-L2: No disc bulge, spinal stenosis or foraminal narrowing. No interval change. L2-L3: No disc bulge, spinal stenosis or foraminal narrowing. No interval change. L3-L4: Mild disc bulge without spinal stenosis. Left foraminal narrowing with facet and ligamentum flavum hypertrophy. Minimal epidural lipomatosis. No interval change. L4-L5: Disc bulge with moderate stenosis. Moderate to severe bilateral foraminal narrowing at L4-5 similar versus questionably minimally progressive. Facet and ligamentum flavum hypertrophy are present. L5-S1: Mild disc bulge without spinal stenosis. Moderate right and mild left foraminal narrowing with facet and ligamentum flavum hypertrophy. No interval change. IMPRESSION: Multilevel degenerative changes overall relatively stable. Questionable minimally progressive appearance of foraminal narrowing at L4-5 secondary to facet/ligamentum flavum arthropathy. Dictated by: Natalie Gallardo M.D. on 11/16/2024 at 20:46 Approved by: Natalie Gallardo M.D. on 11/16/2024 at 20:49
--- NOTE | 2024-11-16 15:13 | DI.MRI.S_ITS ---
PROCEDURE: MR THORACIC SPINE WO CON INDICATIONS: SPONDYLOSIS,CSPINE/NUMBNESS TINGLING UPPER EXT TECHNIQUE: Noncontrast sagittal T1 spine echo and T2 fast spin echo, sagittal STIR, and T2 fast spin echo through the thoracic spine. COMPARISON: [facility], , MR THORACIC SPINE WO CON, 01/02/2024, 9:14. FINDINGS: Image quality: Excellent. Alignment and Curvature: There is normal bony alignment. Bone Marrow: Previous appearance increased marrow signal T5 through T7 is unchanged likely related to fatty metaplasia. No suspicious lesions are identified. No acute vertebral body compression fractures. Spinal Cord: Visualized spinal cord is normal in size and signal. Paraspinous Soft Tissues: No paravertebral masses. Miscellaneous: As noted prior exam minimal scattered areas of foraminal narrowing within mid and thoracic spine are present unchanged. No spinal stenosis.. Multilevel moderate to severe disc desiccation. 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 Appearance is unchanged. IMPRESSION: Stable interval exam demonstrates scattered areas of disc desiccation and minimal disc bulges. Minimal scattered areas minimal foraminal narrowing, unchanged. Dictated by: Natalie Gallardo M.D. on 11/16/2024 at 20:49 Approved by: Natalie Gallardo M.D. on 11/16/2024 at 20:52
--- NOTE | 2024-11-16 15:13 | DI.MRI.S_ITS ---
PROCEDURE: MR CERVICAL SPINE WO CON INDICATIONS: SPONDYLOSIS,CSPINE/NUMBNESS TINGLING UPPER EXT TECHNIQUE: Noncontrast sagittal T1 spin echo and T2 fast spin echo, sagittal STIR, foraminal oblique sagittal T2 fast spin echo, and axial gradient echo or T2 fast spin echo through the cervical spine. COMPARISON: [facility], MR, MR CERVICAL SPINE WO CON, 07/10/2022, 16:06. FINDINGS: Image quality: Excellent. Alignment and Curvature: There is reversal cervical curvature with apex at C5-6. Trace retrolisthesis of C5 on C6, C6 on C7. Bone Marrow: Marrow demonstrates normal overall signal. Spinal Cord: Visualized spinal cord has normal size and signal. No cerebellar tonsillar herniation. Paraspinous Soft Tissues: No paravertebral masses. Prevertebral soft tissues are normal in thickness. Discs: Mild disc desiccation most prominent C5-6 and C6-7. C2-C3: No disc bulge or spinal stenosis. Mild left minimal right foraminal narrowing uncovertebral hypertrophy. No progression. C3-C4: Mild disc bulge with effacement of the anterior thecal. Severe right, mild left foraminal narrowing with mild C4 nerve root compression, unchanged. Uncovertebral hypertrophy is present. C4-C5: Mild disc bulge with mild spinal stenosis. Moderate bilateral foraminal narrowing with uncovertebral hypertrophy, unchanged. C5-C6: Disc bulge with mild spinal stenosis. Moderate to severe bilateral foraminal narrowing with uncovertebral hypertrophy. No nerve root compression. No interval progression. C6-C7: Mild disc bulge with mild stenosis. Severe left moderate right foraminal narrowing with appearance of left C7 nerve root compression. Uncovertebral hypertrophy. No interval change. C7-T1: Minimal disc bulge without spinal stenosis. Minimal left foraminal narrowing with uncovertebral hypertrophy. No interval progression. IMPRESSION: Multilevel disc bulges, spinal stenosis and foraminal narrowing. Overall, no appreciable interval progression. Foraminal narrowing most severe C3-4, C6-7 secondary to uncovertebral arthropathy. Dictated by: Natalie Gallardo M.D. on 11/16/2024 at 20:42 Approved by: Natalie Gallardo M.D. on 11/16/2024 at 20:46
== END ==
PROVIDERS: Family Provider Family Medicine; PCP Family Medicine; Referring Provider Orthopaedic Surgery Orthopaedic Surgery of the Spine; Visit Provider Orthopaedic Surgery Orthopaedic Surgery of the Spine
DX: M47.812 Spondylosis without myelopathy or radiculopathy, cervical region (principal); M48.02 Spinal stenosis, cervical region; M50.31 Other cervical disc degeneration, high cervical region; M47.816 Spondylosis without myelopathy or radiculopathy, lumbar region; M47.814 Spondylosis without myelopathy or radiculopathy, thoracic region; M47.817 Spondylosis without myelopathy or radiculopathy, lumbosacral region; R20.0 Anesthesia of skin; R20.2 Paresthesia of skin
CPT/HCPCS: 72141; 72146; 72148

== ENCOUNTER → 2024-12-30 10:49 | Outpatient (CLI) | payer OTHER, SELFPAY | LOC: PHYS 10:49 | PROVIDERS: Family Provider Family Medicine; PCP Family Medicine; Referring Provider Naturopath; Visit Provider Naturopath | DX: R20.0 Anesthesia of skin (principal); R20.2 Paresthesia of skin | CPT/HCPCS: 95886; 95913 ==

== ENCOUNTER → 2025-02-03 13:59 | Outpatient (CLI) | payer OTHER, SELFPAY ==
--- NOTE | 2025-02-03 14:00 | DI.CT.S_ITS ---
PROCEDURE: CT CERVICAL SPINE WO CON INDICATIONS: cervical radiculopathy TECHNIQUE: Noncontrast 3 mm thick sections acquired from the skull base to the T4 level. Sagittal and coronal reformats were then constructed. For radiation dose reduction, the following was used: automated exposure control, adjustment of mA and/or kV according to patient size. COMPARISON: [facility], MR, MR CERVICAL SPINE WO CON, 11/16/2024, 15:21. FINDINGS: Image quality: Excellent. Bones: No fractures or dislocations. Visualized superior ribs are intact. There is trace retrolisthesis of C5 on C6, C6 on C7. Multilevel disc desiccation most severe at C3-4, C4-5, C5-6 and C6-7. Disc bulges are present at C3-4, C4-5, C5-6 and C6-7. Overall multilevel mild spinal stenosis is present relatively unchanged compared to prior exam. Severe right mild left foraminal narrowing C3-4, moderate bilateral right greater than left C4-5, moderate to severe bilateral C5-6, severe left, moderate right C6-7 with persistent appearance of likely left C7 nerve root compression. Overall, appearances are stable. Multilevel uncovertebral arthropathy. Soft tissues: Prevertebral soft tissues are normal in thickness. No paravertebral hematomas. No apical pneumothoraces. IMPRESSION: Multilevel prominent foraminal narrowing most severe at C3-4 and C6-7 stable compared to prior exam. Dictated by: Natalie Gallardo M.D. on 02/05/2025 at 16:05 Approved by: Natalie Gallardo M.D. on 02/05/2025 at 16:08
== END ==
PROVIDERS: Family Provider Family Medicine; PCP Family Medicine; Referring Provider Orthopaedic Surgery Orthopaedic Surgery of the Spine; Visit Provider Orthopaedic Surgery Orthopaedic Surgery of the Spine
DX: M47.22 Other spondylosis with radiculopathy, cervical region (principal); M48.02 Spinal stenosis, cervical region
CPT/HCPCS: 72125

== ENCOUNTER → 2025-06-02 09:06 | Outpatient (CLI) | payer OTHER, SELFPAY ==
[2025-06-02 10:18] LABS: Add Manual Diff / Slide Review NO; Hematocrit 39.3 % (36-46); Hemoglobin 13.5 g/dL (12.0-16.0); Lymphocytes Absolute Auto 2100 /uL (1100-4500); Mean Corpuscular HGB Conc 34.4 % (30-36); Mean Corpuscular Hemoglobin 31.4 PG (26-34); Mean Corpuscular Volume 91.1 fL (80-100); Platelet Count 303 X10^3/uL (150-400)
[2025-06-02 10:45] LABS: Alanine Aminotransferase 32 IU/L (<35); Albumin 4.5 g/dL (3.5-5.0); Albumin Globulin Ratio 1.5 (1.0-2.8); Alkaline Phosphatase 52 U/L (38-126); Blood Urea Nitrogen 17 mg/dL (7-17); Calcium 9.6 mg/dL (8.4-10.2); Carbon Dioxide 27 mmol/L (22-32); Chloride 102 mmol/L (98-107); Cholesterol 236 mg/dL (140-199); Estimated Glomerular Filt Rate > 60 mL/min (>60); Globulin 3.1 g/dL (1.7-4.1); Glucose 101 mg/dL (70-99); HDL Cholesterol 92 mg/dL (40-60); HEMOLYSIS < 15 (0-50); Potassium 5.0 mmol/L (3.4-5.1); Sodium 138 mmol/L (137-145); Total Protein 7.6 g/dL (6.3-8.2); Triglycerides 61 mg/dL (35-150)
[2025-06-02 11:16] LABS: TSH w/ Reflex to FT4 1.90 uIU/mL (0.47-4.68)
[2025-06-02 11:35] LABS: Vitamin B12 255 pg/mL (239-931)
== END ==
PROVIDERS: Family Provider Family Medicine; PCP Family Medicine; Referring Provider Family Medicine; Visit Provider Family Medicine
DX: E53.8 Deficiency of other specified B group vitamins (principal); M54.16 Radiculopathy, lumbar region; J45.40 Moderate persistent asthma, uncomplicated; M43.16 Spondylolisthesis, lumbar region; M19.90 Unspecified osteoarthritis, unspecified site; M54.14 Radiculopathy, thoracic region; M47.814 Spondylosis without myelopathy or radiculopathy, thoracic region; M51.34 Other intervertebral disc degeneration, thoracic region; M47.22 Other spondylosis with radiculopathy, cervical region; M47.817 Spondylosis without myelopathy or radiculopathy, lumbosacral region; F43.10 Post-traumatic stress disorder, unspecified
CPT/HCPCS: 36415; 80053; 80061; 82607; 84443; 85025